=== PATIENT | female | born 1935 | race Caucasian/White ===

== ENCOUNTER → 2016-06-06 | Outpatient (CLI) | payer OTHER ==
[~2016-06-06] MED LIST: ASPEC325 PO; CALC600T37 PO; CHOL2000 PO; CLB200 PO; GABA1CAP4 PO; HYDR-5688 PO; KETO10TA PO; MELO15TA4 PO; MELO7.5T5 PO; MULT-190 PO; MULT60CA PO; OMEG10002 PO; OXYC-57 PO; PRLSR20 PO; SIMV20TA2 PO; ZNTT/150 PO
[2016-06-06 09:27] LABS: BASO % 0.6 %; BASO ABS # 0.04 K/uL (0-0.2); COMPLETE YES; HEMATOCRIT 41.7 % (37-47); IG% 0.3 %; LYMPH % 26.6 %; LYMPH ABS # 1.71 K/uL (1.2-3.4); MEAN CELL VOLUME 91.6 fL (80-100); MEAN CORPUSCULAR HEMOGLOBIN 30.3 pg (25-34); MEAN CORPUSCULAR HGB CONC 33.1 g/dl (32-36); MEAN PLATELET VOLUME 10.8 fL (7.4-10.4); MONO % 11.2 %; NEUT % 58.3 %; PLATELET COUNT 244 K/uL (130-400); RED BLOOD COUNT 4.55 M/uL (4.2-5.4); WHITE BLOOD COUNT 6.42 K/uL (4.8-10.8)
== END | disposition home or self-care (01) ==
LOC: C.LAB1850 08:47
PROVIDERS: ATTEND Internal Medicine Rheumatology
DX: M70.61 Trochanteric bursitis, right hip (principal); M25.551 Pain in right hip; Z79.1 Long term (current) use of non-steroidal anti-inflammatories (NSAID)

== ENCOUNTER → 2016-06-21 | Outpatient (CLI) | payer OTHER ==
[~2016-06-21] MED LIST changes: -CLB200 PO
--- NOTE | 2016-06-21 11:27 | DIAGNOSTIC IMAGING REPORT ---
ABDOMEN COMPLETE (US) CLINICAL HISTORY: R19.8 Irregular bowel [id number] COMPARISON STUDY: No previous studies for comparison. FINDINGS: The pancreas appears sonographically normal. The spleen appears sonographically normal. There is no aortic dilatation. There is slight increase in hepatic echogenicity. There is a 1 mm complex cyst within the liver. The gallbladder is surgically absent. The common bile duct measures 9 mm. The right kidney measures 10.1 cm in length. The left kidney measures 9.6 cm in length. No focal renal masses are visualized. There is no hydronephrosis. No active as the IVC are visualized. IMPRESSION: 1. Suspected hepatic steatosis. Probable 1 cm septated cyst within the right hepatic lobe 2. Surgically absent gallbladder 3. 9 mm common bile duct 4. No renal pancreatic or splenic masses identified Electronically signed by: Joshua Nagel M.D. 06/21/2016 11:26 AM Dictated Date/Time: 06/21/2016 11:23 AM
== END | disposition home or self-care (01) ==
LOC: C.ULTR 10:54
PROVIDERS: ATTEND Internal Medicine
DX: R19.8 Other specified symptoms and signs involving the digestive system and abdomen (principal); Z90.49 Acquired absence of other specified parts of digestive tract

== ENCOUNTER → 2016-08-16 | Outpatient (CLI) | payer OTHER ==
--- NOTE | 2016-08-16 13:26 | DIAGNOSTIC IMAGING REPORT ---
NUCLEAR GASTRIC EMPTYING STUDY: CLINICAL HISTORY: K30 Delayed gastric xehvcvhgO54.0 [id number] COMPARISON STUDY: 12/20/2010 TECHNIQUE: Following the oral administration of 1.1 mCi of technetium 99m sulfur colloid in egg sandwich and 8 ounces of water, static abdominal images are performed anteriorly and posteriorly at 0 minutes, 1 hour, 2 hours, and 4 hour time intervals. Gastric emptying was calculated utilizing the geometric mean method. FINDINGS: There is approximately 61 % gastric activity remaining at the 1 hour time interval, 54 % at the 2 hour time interval (normal is less than 60%), and 18 % remaining at the 4 hour time interval (normal is less than 10%). These findings are consistent with delayed gastric emptying at the 4 hour time point IMPRESSION: Findings are consistent with mild delayed gastric emptying with increased residual activity at the 4 hour time point. 1 hour and 2 hour measurements are within normal limits. Relatively similar findings were reported on the prior study. Electronically signed by: Joshua Nagel M.D. 08/16/2016 1:25 PM Dictated Date/Time: 08/16/2016 1:23 PM
== END | disposition home or self-care (01) ==
LOC: C.NUCL 08:32
PROVIDERS: ATTEND Registered Nurse
DX: K30 Functional dyspepsia (principal); R11.0 Nausea

== ENCOUNTER → 2016-08-21 | Outpatient (CLI) | payer OTHER ==
--- NOTE | 2016-08-21 14:25 | MAMMOGRAPHY REPORT ---
BILATERAL DIGITAL SCREENING MAMMOGRAM WITH CAD: 08/21/2016 CLINICAL HISTORY: Routine screening. Patient has no complaints. TECHNIQUE: Bilateral CC and MLO views were obtained. Current study was also evaluated with a Comput er Aided Detection (CAD) system. COMPARISON: Comparison is made to exams dated: 08/17/2015 mammogram, 07/15/2014 mammogram, 07/14/2013 ma mmogram, 07/12/2012 mammogram, 07/07/2011 mammogram, and 07/05/2010 mammogram - [facility] enter. BREAST COMPOSITION: The tissue of both breasts is almost entirely fatty. FINDINGS: There is stable nodularity bilaterally. Mild to moderate vascular calcifications in the b reasts. No new suspicious mass, architectural distortion or cluster of microcalcifications is seen. IMPRESSION: ACR BI-RADS CATEGORY 1: NEGATIVE There is no mammographic evidence of malignancy. A 1 year screening mammogram is recommended. The p atient will receive written notification of the results. Approximately 10% of breast cancers are not detected with mammography. A negative mammographic repor t should not delay biopsy if a clinically suggestive mass is present. Beata Post M.D. ay/:08/21/2016 13:22:59 Home Energy Consultant Supervisor: Jessica BAR(Clifford)(M), [facility] letter sent: Normal 1/2 BI-RADS Code: ACR BI-RADS Category 1: Negative
== END | disposition home or self-care (01) ==
LOC: C.MAMM 09:57
PROVIDERS: ATTEND Internal Medicine
DX: Z12.31 Encounter for screening mammogram for malignant neoplasm of breast (principal)

== ENCOUNTER → 2016-09-25 | Outpatient (CLI) | payer OTHER ==
[~2016-09-25] MED LIST changes: -MELO7.5T5 PO; -MULT-190 PO
== END | disposition home or self-care (01) ==
LOC: C.CPL 12:58
PROVIDERS: ATTEND Orthopaedic Surgery Sports Medicine
DX: Z01.810 Encounter for preprocedural cardiovascular examination (principal)

== ENCOUNTER → 2016-09-27 | Day surgery (SDC) | payer OTHER ==
[2016-09-20 14:47] VITALS: Ht 167.6 cm; Wt 104.1 kg
[~2016-09-27] VITALS: Ht 167.6 cm; Wt 104.1 kg
[~2016-09-27] MED LIST changes: +ATROPINE SULFATE 0.1 MG/ML 5ML SYR IV PRN; +BUPIVACAINE 0.5 % 5 MG/1 ML MPF 30ML VIAL ONE; +CEFAZOLIN 2000 MG/60 ML D5W IV SCH; +CEFAZOLIN SOD 1000MG/55 ML D5W IV ONE; +EpHEDrine SULFATE INJ 50 MG/ML AMP IV PRN; +FENTANYL CITRATE INJ 50 MCG/1 ML 2 ML VIAL IV PRN; +FENTANYL CITRATE INJ 50 MCG/1 ML 2 ML VIAL ONE; +LACTATED RINGER'S 1000ML 1,000 ML IV SCH; +LIDOCAINE HCL 1% 20 ML VIAL ONE; +LIDOCAINE HCL 2% 2 ML VIAL (20MG/ML) ONE; +MIDAZOLAM HCL 1 MG/ML 2ML VIAL ONE; +ONDANSETRON INJ 2 MG/ML 2 ML VIAL IV PRN; +OXYCODONE/ACETAMINOPHEN 5-325 TAB PO PRN; +PROPOFOL IV EMULSION 10 MG/ML 20 ML VIAL IV ONE; +SODIUM CHLORIDE 0.9% 1000ML 1,000 ML IV SCH
--- NOTE | 2016-09-27 07:51 | History & Physical Bridge - SC ---
H&P Re-Evaluation Bridge Note: I have examined the patient, reviewed the History & Physical and in the interval since the performance of the History & Physical I have noted the following changes of clinical significance: No changes noted
--- NOTE | 2016-09-27 09:40 | [facility] Post Operative Brief Note ---
Immediate Operative Summary Operative Date Sep 27, 2016. Pre-Operative Diagnosis Right Foot 3rd,4th and 5th Hammertoes Post-Operative Diagnosis same Procedure(s) Performed Right Third, Fourth, And Fifth Hammertoe Correction Surgeon Dr. Todd Farooq Catalyst Impregnator Surgeon(s) Dajuan Gagnon PA-C Estimated Blood Loss 10 ml Findings Right 3rd, 4th, and 5th Hammer toes Specimens 0 Anesthesia Local with IV Sedation Complication(s) None Disposition Recovery Room / PACU
[2016-09-27 09:43] VITALS: TEMP 37.1
--- NOTE | 2016-09-27 09:45 | Discharge Instructions-SurgCtr ---
Discharge Instructions Date of Service Sep 27, 2016. Visit Reason for Visit: Right 3RD, 4TH, 5TH Hammertoes Discharge Discharge Diagnosis / Problem: right 3rd, 4th, 5th hammertoes Discharge Goals Goal(s): Decrease discomfort, Therapeutic intervention Activity Recommendations Activity Limitations: per Instructions/Follow-up section Weightbearing Status: Right weightbearing (as tolerated with post op shoe ) Anesthesia . Post Anesthesia Instructions: If you have had General Anesthesia or IV Sedation: * Do not drive today. * Resume driving when surgeon permits. * Do not make important decisions or sign legal documents today. * Call surgeon for: 1. Temperature elevations greater than 101 degrees F. 2. Uncontrollable pain. 3. Excessive bleeding. 4. Persistent nausea and vomiting. 5. Medication intolerance (nausea, vomiting or rash). * For nausea and vomiting use only clear liquids such as: tea, soda, bouillon until nausea subsides, then gradually increase diet as tolerated. * If you have any concerns or questions, call your surgeon's office. If physician is unavailable and it is an emergency, call 911 or go to the nearest emergency room. . Instructions / Follow-Up Instructions / Follow-Up MEDICATIONS: * Resume previous medications unless instructed otherwise by your surgeon. * Always take pain medication on a full stomach or with food to avoid upset stomach. * Do not drink alcohol or drive while taking narcotics. * Tylenol may be taken if narcotic not needed. SPECIAL CARE INSTRUCTIONS: __ None _x_ Keep extremity elevated and iced x 48 hours; apply ice 20-30 minutes 8-10 times/day. May remove at night. __ Crutches __ May discard when able x__ Brace/Post-op shoe __ 24 hrs/day __ Remove at night _x_ Dressing _x_ Maintain until seen in office, may shower with plastic over site __ Remove dressings in 24-48 hours and then may shower __ Cover incisions with band-aids after showering __ Do not remove steri-strips Call physician if chills or temperature rises above 102 degrees or pain unrelieved by prescribed pain medications. Office [phone] follow up in 2 weeks Diet Recommendations Home Diet: resume previous diet Procedures Procedures Performed: Right Third, Fourth, And Fifth Hammertoe Correction Pending Studies Studies pending at discharge: no Medical Emergencies . Who to Call and When: Medical Emergencies: If at any time you feel your situation is an emergency, please call 911 immediately. . Non-Emergent Contact Non-Emergency issues call your: Surgeon . . "Provider Documentation" section prepared by Angel Gagnon. .
[2016-09-27 10:07] VITALS: BP 148/80; PULSE 68; O2SAT 96
--- NOTE | 2016-09-27 10:09 | Anesthesia Progress Nt - [facility] ---
Anesthesia Post Op Note Date & Time Sep 27, 2016 at 10:09 Vital Signs Pain Intensity: 0 Vital Signs Past 12 Hours Date Time Temp Pulse Resp B/P (MAP) Pulse Ox O2 Delivery O2 Flow Rate FiO2 09/27/16 10:07 68 16 148/80 (102) 96 Room Air 09/27/16 09:43 37.1 71 16 144/81 (102) 96 Room Air 09/27/16 07:03 36.9 80 18 144/82 (102) 94 Room Air Notes Mental Status: alert / awake / arousable, participated in evaluation Pt Amnestic to Procedure: Yes Nausea / Vomiting: adequately controlled Pain: adequately controlled Airway Patency, RR, SpO2: stable & adequate BP & HR: stable & adequate Hydration State: stable & adequate Anesthetic Complications: no major complications apparent
--- NOTE | 2016-09-27 13:45 | OPERATIVE REPORT ---
DATE OF OPERATION: 09/27/2016 SURGEON: Dr. Kedar Farooq. BONE GLUE MAKER: VANNA Sol PREOPERATIVE DIAGNOSIS: Right foot third/fourth/fifth rigid hammertoe deformities. POSTOPERATIVE DIAGNOSIS: Same. PROCEDURES PERFORMED: 1. Right third hammertoe correction. 2. Right fourth toe hammertoe correction. 3. Right fifth toe hammertoe correction. COMPLICATIONS: None. ESTIMATED BLOOD LOSS: 10 mL. TOURNIQUET TIME: 29 minutes at 300 mmHg. ANESTHESIA: Local with IV sedation. OPERATIVE INDICATIONS: The patient is an 81-year-old female with a history of right foot surgery in the past done elsewhere. For the past several years, she developed increased pain and discomfort and chronic deformities to her third, fourth and fifth toes. Her second was most symptomatic with significant plantar callus over the toe. She had failed conservative treatment. She had rigid hammertoes of all 3 toes and elected to proceed with surgical treatment. OPERATIVE PROCEDURE: The patient was taken to the operating room, identified and placed on the operating table in the supine position. All contact areas were appropriately padded. IV antibiotics provided by anesthesia team. Right ankle tourniquet was placed. Some IV sedation was provided. A 20 mL of 50:50 combination of 0.5% Marcaine and 2% lidocaine were then retracted proximal to the incision sites to provide a digital block to the third, fourth, and fifth toes. The right foot was then prepped and draped in the usual sterile fashion. The right foot was elevated and exsanguinated with Esmarch and tourniquet was placed at 300 mmHg. Attention was first drawn to the third toe. A fish mouth type incision was made over the PIP joint of the third toe. Sharp dissection was carried out through the subcutaneous tissue directly down to the extensor tendon directly down to the bone. The distal portion of the proximal phalanx was skeletonized. The collateral ligaments were released. I then took a bone rongeur to cut the distal portion of the proximal phalanx off. I then dissected off the volar plate and did transect the flexor tendons to avoid recurrence. Attention was then drawn towards the fourth toe. A fish mouth incision was made over the PIP joint of the fourth toe. Sharp dissection was carried out through the subcutaneous tissues directly down to the tendon down to the bone. The collateral ligaments were released from the joint. The volar plate was stripped from the joint. The bone was then resected with the use of a bone cutting rongeur. Attention was then drawn towards the fifth toe. A similar fish mouth incision was made over the PIP joint of the fifth toe. Sharp dissection was carried out through the subcutaneous tissue directly down to the extensor tendon down to bone. This tissue was discarded. I then released the joint capsule of the collateral ligaments and the volar plate from the plantar aspect of the joint. I then took a bone rongeur and resected the distal portion of the proximal phalanx. I also released the volar plate and transected the flexor tendons to avoid recurrence. Once this was complete, I irrigated all wounds extensively. I then drilled some holes on the proximal phalanx of the third and fourth toes to allow for pin placement. I then placed a single 0.062-inch K-wire through the PIP joint of the third toe to hold in appropriate position. I did not place this into the metatarsal head. I placed a similar 0.062-inch K-wire in the fourth toe to hold in appropriate position. The fifth toe was extremely small and I could felt I could hold this in the appropriate position with the soft tissue repair. I did verify the location of the pins under fluoroscopy. Once this was complete, I irrigated the wounds again. The tourniquet was then let down for a tourniquet time of [address] vertical mattress sutures over the dorsal aspect of all 3 toes to incorporate the extensor tendon repair. The sutures were placed in a vertical mattress fashion. I then repaired the remaining of the wound edges with 4-0 nylon suture in a simple fashion. Once this was complete, Jergens pin balls were placed at the end of the K-wires. Xeroform was wrapped around the K-wires as well as over the incision site. The wounds were cleaned. A sterile dressing composed of 4 x 4s, sterile cast padding and a Coban wrap followed by postop shoe were applied. The patient was then transferred to the recovery room in stable condition. The patient tolerated the procedure well with no complications. All needle and sponge counts were correct at the end of the operation. I attest to the content of the Intraoperative Record and any orders documented therein. Any exceptions are noted below. ELMO
== END | disposition home or self-care (01) ==
LOC: X.SURG 06:35
PROVIDERS: ATTEND Orthopaedic Surgery Sports Medicine
DX: M20.41 Other hammer toe(s) (acquired), right foot (principal); Z88.2 Allergy status to sulfonamides; Z96.653 Presence of artificial knee joint, bilateral; E66.9 Obesity, unspecified; Z68.37 Body mass index [BMI] 37.0-37.9, adult; Z98.890 Other specified postprocedural states; Z90.710 Acquired absence of both cervix and uterus

== ENCOUNTER → 2016-10-06 | Outpatient (CLI) | payer OTHER ==
[~2016-10-06] MED LIST changes: -ATROPINE SULFATE 0.1 MG/ML 5ML SYR IV PRN; -BUPIVACAINE 0.5 % 5 MG/1 ML MPF 30ML VIAL ONE; -CEFAZOLIN 2000 MG/60 ML D5W IV SCH; -CEFAZOLIN SOD 1000MG/55 ML D5W IV ONE; -EpHEDrine SULFATE INJ 50 MG/ML AMP IV PRN; -FENTANYL CITRATE INJ 50 MCG/1 ML 2 ML VIAL IV PRN; -FENTANYL CITRATE INJ 50 MCG/1 ML 2 ML VIAL ONE; -KETO10TA PO; -LACTATED RINGER'S 1000ML 1,000 ML IV SCH; -LIDOCAINE HCL 1% 20 ML VIAL ONE; -LIDOCAINE HCL 2% 2 ML VIAL (20MG/ML) ONE; -MELO15TA4 PO; -MIDAZOLAM HCL 1 MG/ML 2ML VIAL ONE; -ONDANSETRON INJ 2 MG/ML 2 ML VIAL IV PRN; -OXYCODONE/ACETAMINOPHEN 5-325 TAB PO PRN; -PROPOFOL IV EMULSION 10 MG/ML 20 ML VIAL IV ONE; -SODIUM CHLORIDE 0.9% 1000ML 1,000 ML IV SCH
[2016-10-06 09:26] LABS: BASO % 0.4 %; BASO ABS # 0.03 K/uL (0-0.2); COMPLETE YES; HEMATOCRIT 40.7 % (37-47); IG% 0.4 %; LYMPH % 26.6 %; LYMPH ABS # 2.04 K/uL (1.2-3.4); MEAN CELL VOLUME 91.5 fL (80-100); MEAN CORPUSCULAR HEMOGLOBIN 29.9 pg (25-34); MEAN CORPUSCULAR HGB CONC 32.7 g/dl (32-36); MEAN PLATELET VOLUME 10.5 fL (7.4-10.4); MONO % 10.2 %; NEUT % 60.4 %; PLATELET COUNT 271 K/uL (130-400); RED BLOOD COUNT 4.45 M/uL (4.2-5.4); WHITE BLOOD COUNT 7.66 K/uL (4.8-10.8)
[2016-10-06 09:41] LABS: ALT/SGPT 27 U/L (12-78); AST/SGOT 13 U/L (15-37); BLOOD UREA NITROGEN 21 mg/dl (7-18); BUN/CREATININE RATIO 23.4 (10-20); CALCIUM 8.8 mg/dl (8.5-10.1); CARBON DIOXIDE 26 mmol/L (21-32); CHLORIDE 109 mmol/L (98-107); CHOLESTEROL 127 mg/dl (0-200); GLUCOSE 124 mg/dl (70-99); POTASSIUM 4.2 mmol/L (3.5-5.1); SODIUM 144 mmol/L (136-145); TRIGLYCERIDES 144 mg/dl (0-150); VERY LOW DENSITY LIPOPROT CALC 29 mg/dl
[2016-10-06 09:52] LABS: ALKALINE PHOSPHATASE 76 U/L (45-117); CHOLESTEROL/HDL RATIO 3.3; HDL CHOLESTEROL 38 mg/dl; LDL CHOLESTEROL CALCULATED 60 mg/dl
== END | disposition home or self-care (01) ==
LOC: C.LAB1850 08:13
PROVIDERS: ATTEND Internal Medicine
DX: E04.2 Nontoxic multinodular goiter (principal); E78.00 Pure hypercholesterolemia, unspecified; E55.9 Vitamin D deficiency, unspecified; R73.03 Prediabetes; M19.90 Unspecified osteoarthritis, unspecified site; Z79.1 Long term (current) use of non-steroidal anti-inflammatories (NSAID)

== ENCOUNTER → 2016-12-19 | Outpatient (CLI) | payer OTHER ==
[~2016-12-19] MED LIST changes: +OPTIRAY 320 IV PRN; -OXYC-57 PO
--- NOTE | 2016-12-19 16:31 | DIAGNOSTIC IMAGING REPORT ---
ABD/PELVIS IV AND ORAL CONT CT DOSE: 1249.51 mGy.cm HISTORY: Pain. Mass. R19.00 Lump in the ueonlrqM55.31 Abdominal pain, acute, right lo TECHNIQUE: Multiaxial CT images of the abdomen and pelvis were performed following the use of intravenous and oral contrast. A dose lowering technique was utilized adhering to the principles of ALARA. COMPARISON STUDY: None. FINDINGS: Mild bibasilar atelectasis. Several small hepatic hypodensities statistically consistent with that of small cysts. Prior cholecystectomy. Pancreas is uniform. Moderate cortical scarring of the kidneys bilaterally. No evidence for hydronephrosis. Nonobstructive bowel pattern. Fat-containing periumbilical hernia no evidence of bowel containment. Bladder is midline. No significant abdominal pelvic or inguinal adenopathy. Findings of mild chronic sigmoid diverticulosis. No evidence for acute diverticulitis. IMPRESSION: 1. Fat-containing periumbilical hernia. 2. Several small hepatic cysts. 3. Chronic sigmoid and to lesser extent descending colonic diverticulosis. 4. No evidence for mass or collection The above report was generated using voice recognition software. It may contain grammatical, syntax or spelling errors. Electronically signed by: Aleksey Lopez M.D. 12/19/2016 4:29 PM Dictated Date/Time: 12/19/2016 4:25 PM
== END | disposition home or self-care (01) ==
LOC: C.CTS 15:45
PROVIDERS: ATTEND Physician Assistant
DX: R10.31 Right lower quadrant pain (principal); R19.00 Intra-abdominal and pelvic swelling, mass and lump, unspecified site; K76.89 Other specified diseases of liver

== ENCOUNTER → 2016-12-28 | Outpatient (CLI) | payer OTHER ==
[~2016-12-28] MED LIST changes: -OPTIRAY 320 IV PRN
--- NOTE | 2016-12-28 14:15 | DIAGNOSTIC IMAGING REPORT ---
RIGHT SHOULDER 3 VIEWS HISTORY: Fall. Right shoulder pain. COMPARISON: None. FINDINGS: No acute fracture or dislocation within the right shoulder. Distal resection of the right clavicle. Narrowing of the subacromial space consistent with chronic rotator cuff injury. Calcifications at the expected location of the supraspinatus tendon. 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 No radiopaque foreign bodies. IMPRESSION: 1. No acute fracture or dislocation within the right shoulder. 2. Chronic and postoperative changes as described above. Electronically signed by: Nato Deras M.D. 12/28/2016 2:13 PM Dictated Date/Time: 12/28/2016 2:11 PM
== END | disposition home or self-care (01) ==
LOC: C.RAD1850 13:54
PROVIDERS: ATTEND Physician Assistant
DX: M25.511 Pain in right shoulder (principal); S49.91XA Unspecified injury of right shoulder and upper arm, initial encounter; W19.XXXA Unspecified fall, initial encounter; M19.011 Primary osteoarthritis, right shoulder

== ENCOUNTER → 2017-02-06 | Outpatient (CLI) | payer OTHER ==
[~2017-02-06] MED LIST changes: -ASPEC325 PO; -GABA1CAP4 PO
[2017-02-06 12:24] LABS: HEMATOCRIT 42.7 % (37-47); MEAN CELL VOLUME 90.9 fL (80-100); MEAN CORPUSCULAR HEMOGLOBIN 29.6 pg (25-34); MEAN CORPUSCULAR HGB CONC 32.6 g/dl (32-36); MEAN PLATELET VOLUME 11.3 fL (7.4-10.4); PLATELET COUNT 242 K/uL (130-400); WHITE BLOOD COUNT 7.04 K/uL (4.8-10.8)
[2017-02-06 13:15] LABS: BLOOD UREA NITROGEN 19 mg/dl (7-18); BUN/CREATININE RATIO 23.2 (10-20); CALCIUM 9.2 mg/dl (8.5-10.1); CARBON DIOXIDE 26 mmol/L (21-32); CHLORIDE 109 mmol/L (98-107); CREATININE 0.83 mg/dl (0.60-1.20); GLUCOSE 122 mg/dl (70-99); POTASSIUM 3.8 mmol/L (3.5-5.1); SODIUM 142 mmol/L (136-145)
[2017-02-06 14:38] LABS: ESTIMATED AVERAGE GLUCOSE 134 mg/dl; HA1C FLAG Normal (Normal)
== END | disposition home or self-care (01) ==
LOC: C.LAB1850 08:32
PROVIDERS: ATTEND Internal Medicine
DX: R73.03 Prediabetes (principal); K30 Functional dyspepsia

== ENCOUNTER → 2017-07-24 | Outpatient (CLI) | payer OTHER ==
[~2017-07-24] MED LIST changes: +RANI150T85 PO; -ZNTT/150 PO
--- NOTE | 2017-07-24 16:48 | DIAGNOSTIC IMAGING REPORT ---
CHEST 2 VIEWS ROUTINE HISTORY: 81 years-old Female R06.02 SOB (shortness of breath) on [id number] acute shortness of breath with upper back pain COMPARISON: Chest radiographs 02/11/2015 TECHNIQUE: PA and lateral views of the chest FINDINGS: Cardiac silhouette is mildly enlarged. Atherosclerosis of the aorta. Azygos lobe and fissure incidentally noted. No pneumothorax or large pleural effusion. Linear subsegmental bibasilar opacities with blunting of the left costophrenic angle suggests atelectasis or scarring. No lobar airspace consolidation or overt pulmonary edema. The lungs are mildly hyperinflated with diaphragmatic flattening. Degenerative changes are noted throughout the spine and shoulders. Surgical clips seen within the right upper quadrant suggesting prior cholecystectomy. IMPRESSION: 1. No acute process of the chest. 2. subsegmental bibasilar opacities suggest atelectasis/scarring. The above report was generated using voice recognition software. It may contain grammatical, syntax or spelling errors. Electronically signed by: Larry Guzman M.D. 07/24/2017 4:47 PM Dictated Date/Time: 07/24/2017 4:45 PM
--- NOTE | 2017-07-24 16:49 | DIAGNOSTIC IMAGING REPORT ---
BILATERAL RIB SERIES CLINICAL HISTORY: Dyspnea. Back pain. FINDINGS: 8 views from a bilateral rib series are correlated with chest radiographs dated 07/24/2017 and correlated with chest CT dated 02/02/2014. The skeletal structures are osteopenic. There is no radiographic evidence of acute/distracted rib fracture on the bilateral rib series. The remainder the bony thorax is grossly intact. The lung parenchyma is clear as visualized. The heart is enlarged. Cholecystectomy clips are noted in the right upper quadrant. IMPRESSION: There is no radiographic evidence of acute/distracted rib fracture on the bilateral rib series. Electronically signed by: Micah Watkins M.D. 07/24/2017 4:48 PM Dictated Date/Time: 07/24/2017 4:46 PM
--- NOTE | 2017-07-24 16:53 | DIAGNOSTIC IMAGING REPORT ---
THORACIC SPINE 3 VIEWS ROUTINE HISTORY: 81 years-old Female R06.02 SOB (shortness of breath) on [id number] acute shortness of breath with upper back pain COMPARISON: Chest radiograph of same day TECHNIQUE: 3 views of the thoracic spine FINDINGS: The bones appear osteopenic. Multilevel mostly moderate intervertebral disc space narrowing and endplate spurring without acute fracture or subluxation identified. There is mild anterior and posterior vertebral body height loss involving the T4 vertebral segment which appears chronic. No definite acute compression deformity is identified. Alignment is satisfactory. The heart appears enlarged. Atherosclerosis of the aorta. Surgical clips of the right upper abdomen suggest prior cholecystectomy. IMPRESSION: Multilevel degenerative changes without acute fracture or subluxation identified. The above report was generated using voice recognition software. It may contain grammatical, syntax or spelling errors. Electronically signed by: Larry Guzman M.D. 07/24/2017 4:52 PM Dictated Date/Time: 07/24/2017 4:48 PM
== END | disposition home or self-care (01) ==
LOC: C.RAD1850 16:02
PROVIDERS: ATTEND Physician Assistant
DX: R06.02 Shortness of breath (principal); R91.8 Other nonspecific abnormal finding of lung field

== ENCOUNTER → 2017-08-02 | Outpatient (CLI) | payer OTHER ==
[~2017-08-02] MED LIST changes: +OPTIRAY 320 IV PRN
--- NOTE | 2017-08-02 12:00 | DIAGNOSTIC IMAGING REPORT ---
CT OF THE CHEST WITH IV CONTRAST CLINICAL HISTORY: M54.6 Thoracic back [id number] PAIN BETWEEN THE SHOULDER BLADES COMPARISON STUDY: No previous studies for comparison. TECHNIQUE: Following the IV administration of 93 mL of Optiray-320, CT of the thorax was performed from the thoracic inlet to the lung bases. Images are reviewed in the axial, sagittal, and coronal planes. IV contrast was administered without complication. A dose lowering technique was utilized adhering to the principles of ALARA. CT DOSE: 554.59 mGycm FINDINGS: Thyroid: There is a multinodular thyroid gland with nodules measuring up to 12 mm in diameter. Thoracic aorta: The thoracic aorta is normal in course and caliber, noting standard 3-vessel arch anatomy. No aneurysm or dissection is seen. Pulmonary vasculature: The pulmonary trunk is normal in caliber. There are no central filling defects identified to suggest pulmonary embolus. Note that this examination was not protocoled for the evaluation of pulmonary emboli. HEART: The heart is normal in size and configuration, without pericardial effusion. Lungs and pleural spaces: There are no pleural effusions. There is no focal pulmonary consolidation. There are no suspicious pulmonary masses. There are lingular atelectatic changes. Mediastinum: There is no mediastinal lymphadenopathy. Mary Lou: Clear. Axilla: Clear. Upper abdomen: Is a stable 13 mm fat-containing lesion within the right lobe of the liver, and all likelihood benign. The kidneys are lobulated. There are postsurgical changes are prior cholecystectomy. Skeletal structures: The bones are mildly osteopenic. There is a mild upper thoracic compression deformity which appears old. There is a subcutaneous nodule within the mid upper back, likely representing a sebaceous cyst. This is slightly larger than on the prior study. IMPRESSION: 1. No acute intrathoracic findings 2. No evidence of pathologic adenopathy 3. No evidence of focal pulmonary consolidation Electronically signed by: Joshua Nagel M.D. 08/02/2017 11:58 AM Dictated Date/Time: 08/02/2017 11:50 AM
== END | disposition home or self-care (01) ==
LOC: C.CTS 11:13
PROVIDERS: ATTEND Physician Assistant
DX: M54.6 Pain in thoracic spine (principal)

== ENCOUNTER → 2017-08-03 | Outpatient (CLI) | payer OTHER ==
[~2017-08-03] MED LIST changes: -OPTIRAY 320 IV PRN
[2017-08-03 10:08] LABS: HEMATOCRIT 42.4 % (37-47); HEMOGLOBIN 13.8 g/dL (12.0-16.0); MEAN CELL VOLUME 90.6 fL (80-100); MEAN CORPUSCULAR HEMOGLOBIN 29.5 pg (25-34); MEAN CORPUSCULAR HGB CONC 32.5 g/dl (32-36); MEAN PLATELET VOLUME 10.2 fL (7.4-10.4); PLATELET COUNT 288 K/uL (130-400); RED CELL DISTRIBUTION WIDTH CV 13.5 % (11.5-14.5); RED CELL DISTRIBUTION WIDTH SD 44.5 fL (36.4-46.3); WHITE BLOOD COUNT 8.21 K/uL (4.8-10.8)
== END | disposition home or self-care (01) ==
LOC: C.LAB1850 09:14
PROVIDERS: ATTEND Internal Medicine
DX: E78.00 Pure hypercholesterolemia, unspecified (principal); R73.03 Prediabetes; K22.70 Barrett's esophagus without dysplasia; E55.9 Vitamin D deficiency, unspecified

== ENCOUNTER → 2017-09-03 | Outpatient (CLI) | payer OTHER ==
--- NOTE | 2017-09-03 15:08 | MAMMOGRAPHY REPORT ---
BILATERAL DIGITAL SCREENING MAMMOGRAM TOMOSYNTHESIS WITH CAD: 09/03/2017 CLINICAL HISTORY: Routine screening. Patient has no complaints. TECHNIQUE: Breast tomosynthesis in addition to standard 2D mammography was performed. Current study was also evaluated with a Computer Aided Detection (CAD) system. COMPARISON: Comparison is made to exams dated: 08/21/2016 mammogram, 08/17/2015 mammogram, 07/15/2014 mamm ogram, 07/14/2013 mammogram, 07/12/2012 mammogram, and 07/07/2011 mammogram - [facility] er. BREAST COMPOSITION: The tissue of both breasts is almost entirely fatty. FINDINGS: There are mild vascular calcifications bilaterally. Multiple bilateral round and oval circ umscribed subcentimeter masses bilaterally, most likely representing benign cysts/fibrocystic change. No suspicious spiculated or irregular mass, architectural distortion or cluster of microcalcificati ons is seen. IMPRESSION: ACR BI-RADS CATEGORY 1: NEGATIVE There is no mammographic evidence of malignancy. A 1 year screening mammogram is recommended. The pa tient will receive written notification of the results. Approximately 10% of breast cancers are not detected with mammography. A negative mammographic report should not delay biopsy if a clinically suggestive mass is present. Beata Post M.D. ay/:09/03/2017 09:02:43 Director Of Analytics: Jessica SETH)([place]), [facility] letter sent: Normal 1/2 BI-RADS Code: ACR BI-RADS Category 1: Negative
== END | disposition home or self-care (01) ==
LOC: C.MAMM 08:14
PROVIDERS: ATTEND Internal Medicine
DX: Z12.31 Encounter for screening mammogram for malignant neoplasm of breast (principal)

== ENCOUNTER 2018-05-07 06:15 | Inpatient (IN) ==
--- NOTE | 2018-04-23 13:56 | PAT Medication Instructions ---
Medication Instructions Date of Service April 23, 2018 Home Medications calcium carbonate [Calcium 600]600 mg PO QPM cholecalciferol (vitamin D3)4,000 unit PO QPM mg PO QAM omega 9-zbe-yjt-fish oil [Fish Oil]1 cap PO QPM tewxmgdudb41 mg PO QAM ranitidine KIk664 mg PO QPM ndbbgmvtee83 mg PO QAM yyohywrmtqx05 mg PO PM vit C,T-Cq-wsxsx-lutein-zeaxan [PreserVision AREDS-2] 1 tab PO BID ASK your surgeon for instructions mielriyor29 mg PO QAM STOP taking 2 weeks before surgery (or as soon as possible if surgery is within 2 weeks) omega 3-iat-sch-fish oil [Fish Oil]1 cap PO QPM vit C,O-Wq-hfgum-lutein-zeaxan [PreserVision AREDS-2] 1 tab PO BID Take morning of surgery With a small sip of water, OTHERWISE NOTHING TO EAT OR DRINK AFTER MIDNIGHT: hefckjdiye17 mg PO QAM meqimlbzsa52 mg PO QAM Take evening before surgery calcium carbonate [Calcium 600]600 mg PO QPM cholecalciferol (vitamin D3)4,000 unit PO QPM ranitidine BOo894 mg PO QPM ebjqlhorqca37 mg PO PM Other Notes If you have any questions please call us at [phone] or [phone] or [phone] or [phone]
--- NOTE | 2018-04-24 10:56 | Anesthesiology Consultation ---
Date of Service April 24, 2018 Assessment & Plan (1) Encounter for pre-operative examination: Plan: - Cardio= 05/01/18= "stable and asymptomatic from a CV standpoint with no anginal symptoms occurring at a fair functional status." EKG with possible inferior/anterior GA-- ECHO ordered to evaluation LV systolic function and wall motion. "Pending the results of the [ECHO], patient is at an acceptable risk to proceed with surgery without any additional CV testing or intervention." ECHO done 05/01/18 with EF 55-60%, no RWMA, no significant valvular disease. - Check BSG AM DOS Chart Review Chart Review: Acceptable Risk for Surgery and Patient seen in Pre Admission Testing Teaching & Discussion Pre-Anesthesia Teaching/Discussion Notes: Instructed NPO after midnight before surgery,except medications with 15 cc of water. Medication instructions provided according to the PAT guidelines. History Surgery Operation Date: 05/07/18 12:45 Proposed Procedures p Left Reverse Total Shoulder Replacement - Balwinder Nava DO Height/Weight Height: 5 ft 5 in Weight: 101.7 kg Allergies Allergy/AdvReac Type Severity Reaction Status Date / Time Sulfa (Sulfonamide Allergy Severe FACIAL Verified 04/19/18 11:48 Antibiotics) SWELLING A TEEN Medications Home Medications Medication Instructions Recorded Confirmed Last Taken calcium carbonate [Calcium 600] 600 mg PO QPM 04/19/18 04/19/18 Unknown cholecalciferol (vitamin D3) 4,000 unit PO QPM 04/19/18 04/19/18 Unknown [Vitamin D3] meloxicam 15 mg PO QAM 04/19/18 04/19/18 Unknown omega 2-bzc-tbn-fish oil [Fish Oil] 1 cap PO QPM 04/19/18 04/19/18 Unknown omeprazole 20 mg PO QAM 04/19/18 04/19/18 Unknown ranitidine HCl 150 mg PO QPM 04/19/18 04/19/18 Unknown sertraline 50 mg PO QAM 04/19/18 04/19/18 Unknown simvastatin 20 mg PO PM 04/19/18 04/19/18 Unknown vit C,W-Xe-mxugx-lutein-zeaxan 1 tab PO BID 04/19/18 04/19/18 Unknown [PreserVision AREDS-2] Past Medical History Medical History Anxiety GERD (gastroesophageal reflux disease) CONTROLLED Hyperlipidemia Macular degeneration Obesity Osteoarthritis Prediabetes Umbilical hernia Past Surgical History Surgical History History of ankle surgery B/L History of back surgery History of carpal tunnel release RIGHT History of cholecystectomy History of colonoscopy History of esophagogastroduodenoscopy (EGD) History of foot surgery History of repair of rotator cuff B/L History of toe surgery RIGHT TOE AMPUTATION (2/2 OSTEOMYELITIS)= 12/12/17= MAC SEDATION AT [facility] History of tooth extraction History of total abdominal hysterectomy and bilateral salpingo-oophorectomy History of total knee replacement B/L Past Anesthesia History No Hx of Anesthesia Complications and No Family Hx of Anesthesia Complications History of PONV No Motion Sickness Screening History of Motion Sickness: No Social History Smoking Status: Never smoker Do You Dip or Chew Tobacco: No Hx Alcohol Use: No Hx Substance Use: No substance use type: does not use Exercise / Class Metabolic Activity III < 4 Walking/Shop/Light housework Review of Systems Patient denies chest pain, shortness of breath, cough, wheezing, palpitations. Physical Exam Vital Signs VITALS BP 130/74 P 69 TEMP 98.6 SP02 95%RA RESP 18 Full neck and c-spine range of motion. Full TMJ range of motion. TMD 2.5 finger breaths Mallampati Score 3 Dentition: few remaining teeth on lower, full dentures on upper Lungs: clear throughout to auscultation Cardiac: regular rate and rhythm, no murmurs noted Spine: normal Carotid arteries: negative bruit Extremities: no edema Testing Electrocardiogram Date: 05/01/18 SR at 73bpm. Possible Anterior/Inferior myocardial infarction. Echocardiogram Date: 05/01/18 EF 55-60%. No RWMA. Mild cLVH. Grade I DD. No significant valvular disease. Other Testing CT CHEST= 08/02/17= No acute intrathoarcic findings. No evidence of pathologic adenopathy. No evidence of focal pulmonary consolidation. Laboratory Results 04/24/18 11:11 04/24/18 11:11 Blood Type O Positive 04/24/18 11:11 Antibody Screen NEGATIVE 04/24/18 11:11 PT 10.2 Seconds (9.0-12.0) 04/24/18 11:11 INR 1.0 (0.9-1.1) 04/24/18 11:11 APTT 27.0 Seconds (21.0-31.0) 04/24/18 11:11
[2018-04-24 12:26] LABS: Basophils # (auto) 0.04 K/uL (0-0.2); Basophils % (auto) 0.5 %; Eosinophils # (auto) 0.12 K/uL (0-0.5); Eosinophils % (auto) 1.5 %; Hematocrit (blood only) 42.1 % (37-47); Hemoglobin 13.5 g/dL (12.0-16.0); Immature Granulocytes # (auto) 0.02 K/uL (0.00-0.02); Immature Granulocytes % (auto) 0.2 %; Lymphocytes # (auto) 1.92 K/uL (1.2-3.4); Mean Corpuscular Hgb Conc 32.1 g/dL (32-36); Mean Corpuscular Volume 92.9 fL (80-100); Mean Platelet Volume 10.8 fL (7.4-10.4); Neutrophils # (auto) 5.11 K/uL (1.4-6.5); Neutrophils % (auto) 63.8 %; Platelet Count 295 K/uL (130-400); RDW Coefficient of Variation 13.3 % (11.5-14.5); RDW Standard Deviation 45.3 fL (36.4-46.3); Red Blood Count 4.53 M/uL (4.2-5.4); White Blood Count 8.01 K/uL (4.8-10.8)
[2018-04-24 12:42] LABS: BUN Creatinine Ratio 28.1 (10-20); Creatinine Clr Calc Pharmacy 63.3 ml/min; Est GFR (African American) 78.4; Est GFR (Non-African American) 67.6; Potassium 4.4 mmol/L (3.5-5.1)
[2018-04-24 12:43] LABS: Prothrombin Time 10.2 Seconds (9.0-12.0)
[~2018-05-07 06:15] MED LIST changes: +ACETAMINOPHEN 500 MG TAB PO SCH; -CALC600T37 PO; +CEFAZOLIN 2000MG 2,000 MG/15 ML SYR IV SCH; -CHOL2000 PO; +FAMOTIDINE 20 MG TAB PO SCH; +GABAPENTIN 300 MG PO SCH; -HYDR-5688 PO; +LR 15ML/HR IV SCH; +LR 60ML/HR IV SCH; -MULT60CA PO; -OMEG10002 PO; -PRLSR20 PO; -RANI150T85 PO; +ROPIVACAINE 0.5% HCL/PF 150 MG, BUPIVACAINE 0.5% MPF 30 ML, EPINEPHrine 30MG/30ML (OR U... INFIL SCH; -SIMV20TA2 PO; +TRANEXAMIC ACID 1,000 MG **IV Pre-op IV SCH
[2018-05-07] MEDS ORDERED: TRANEXAMIC ACID 1,000 MG **IV Intra-op IV SCH (06:30)
--- NOTE | 2018-05-07 06:32 | History & Physical Report ---
Date of Service May 07, 2018 Assessment & Plan (1) Rotator cuff arthropathy of left shoulder: We will proceed with a reverse left shoulder arthroplasty. Postoperatively she will be placed in a sling and kept overnight for postop medical management. She plans to use [employer] upon discharge. Present on Admission?: Yes History of Present Illness Chief Complaint: Rotator cuff arthropathy of the left shoulder Primary Care Provider: Bebo Correa MD Jasmin is a pleasant 82-year-old female who had a rotator cuff repair done by Dr. Farooq about 6 years ago. She initially did well and then 2 years ago she started to get significant left shoulder pain and weakness. X-rays and clinical examination have been diagnostic for rotator cuff arthropathy of the left shoulder. After failing conservative treatment, she elected to proceed with a reverse left shoulder arthroplasty. Allergies Allergy/AdvReac Type Severity Reaction Status Date / Time Sulfa (Sulfonamide Allergy Severe FACIAL Verified 04/19/18 11:48 Antibiotics) SWELLING A TEEN Home Medications Home Medications Medication Instructions Recorded Confirmed Type calcium carbonate [Calcium 600] 600 mg PO QPM 04/19/18 04/19/18 History cholecalciferol (vitamin D3) 4,000 unit PO QPM 04/19/18 04/19/18 History [Vitamin D3] meloxicam 15 mg PO QAM 04/19/18 04/19/18 History omega 3-ftn-ufn-fish oil [Fish Oil] 1 cap PO QPM 04/19/18 04/19/18 History omeprazole 20 mg PO QAM 04/19/18 04/19/18 History ranitidine HCl 150 mg PO QPM 04/19/18 04/19/18 History sertraline 50 mg PO QAM 04/19/18 04/19/18 History simvastatin 20 mg PO PM 04/19/18 04/19/18 History vit C,Z-Cq-aqxfb-lutein-zeaxan 1 tab PO BID 04/19/18 04/19/18 History [PreserVision AREDS-2] Past Med/Surg History Medical History Anxiety GERD (gastroesophageal reflux disease) CONTROLLED Hyperlipidemia Macular degeneration Obesity Osteoarthritis Prediabetes Umbilical hernia Surgical History History of ankle surgery B/L History of back surgery History of carpal tunnel release RIGHT History of cholecystectomy History of colonoscopy History of esophagogastroduodenoscopy (EGD) History of foot surgery History of repair of rotator cuff B/L History of toe surgery RIGHT TOE AMPUTATION (2/2 OSTEOMYELITIS)= 12/12/17= MAC SEDATION AT [facility] History of tooth extraction History of total abdominal hysterectomy and bilateral salpingo-oophorectomy History of total knee replacement B/L Social History Current Living Situation: Spouse Other Information That Helps Us Care for You: No Feels Safe at Home: Yes Safety Concerns: Feels Safe At This Time Smoking Status: Never smoker Do You Dip or Chew Tobacco: No Hx Alcohol Use: No Hx Substance Use: No Beliefs That Will Affect Care: None Preferred Language: Nepali Communication Ability: Effective Polymer Tester Required: No Review of Systems All systems reviewed & are unremarkable except as noted in HPI & below Physical Exam 2 Constitutional: WD/WN, vitals as above Eyes: PERRL, conjunctivae normal, anicteric sclerae ENMT: external ear and nose normal, oropharynx normal Neck: trachea midline, no thyromegaly Respiratory: normal respiratory effort Cardiovascular: RRR, no murmur, no edema Gastrointestinal (Abdomen): normal bowel sounds, soft, nontender, no hepatosplenomegaly Musculoskeletal: Physical examination of the left shoulder reveals decreased range of motion and significant weakness. There is tenderness palpation along the anterior glenohumeral joint line. The right upper extremity is neurovascularly intact. Psychiatric: A+Ox3, euthymic affect Results & Data Diagnostic Findings Radiographs of the left shoulder show some signs of osteoarthritis with blunting of the greater tuberosity and some superior migration of the humeral head on the glenoid.
[2018-05-07] MEDS ORDERED: ROPIVACAINE 0.5% 5 MG/ML 30 ML VIAL ONE (06:37)
[2018-05-07] MEDS ORDERED: MIDAZOLAM HCL 1 MG/ML 2ML VIAL ONE ×2 (07:15→07:40)
[2018-05-07] MEDS ORDERED: fentaNYL citrate 100 MCG/2 ML VIAL ONE (07:15)
[2018-05-07] MEDS ORDERED: ATROPINE SULFATE 0.1 MG/ML 10ML SYR IV PRN (07:22)
[2018-05-07] MEDS ORDERED: ONDANSETRON INJ 2 MG/ML 2 ML VIAL IV PRN ×2 (07:22→10:56)
[2018-05-07] MEDS ORDERED: ePHEDrine sulfate 50 MG/ML AMP IV PRN (07:22)
[2018-05-07] MEDS ORDERED: fentaNYL citrate 100 MCG/2 ML VIAL IV PRN (07:22)
[2018-05-07] MEDS ORDERED: DEXAMETHASONE SOD INJ 4 MG/ML VIAL ONE (07:39)
[2018-05-07] MEDS ORDERED: NEOSTIGMINE METHYLSULFATE 5 MG/5 ML SYR ONE (07:39)
[2018-05-07] MEDS ORDERED: PROPOFOL IV EMULSION 10 MG/ML 20 ML VIAL IV ONE (07:39)
[2018-05-07] MEDS ORDERED: ONDANSETRON INJ 2 MG/ML 2 ML VIAL ONE (07:39)
[2018-05-07] MEDS ORDERED: GLYCOPYRROLATE 0.2 MG/ML VIAL ONE (07:39)
[2018-05-07] MEDS ORDERED: LIDOCAINE HCL 2% 2 ML VIAL/AMP(20MG/ML) INFIL ONE (07:39)
[2018-05-07] MEDS ORDERED: ORTHO JOINT ANESTHETIC ONE (07:59)
[2018-05-07] MEDS ORDERED: POVIDONE-IODINE OP SOLN 30 ML BTL ONE (07:59)
--- NOTE | 2018-05-07 08:13 | History & Physical Bridge Note ---
Date of Service May 07, 2018 History & Physical Bridge Note I have examined the patient, reviewed the History & Physical and in the interval since the performance of the History & Physical I have noted the following changes of clinical significance: no changes noted
--- NOTE | 2018-05-07 10:04 | Operative Report ---
Post Operative Report Pre & Post Diagnosis Operation Date: 05/07/18 09:00 Pre-Op Diagnosis: Chronic Rotator Cuff Tear Left Shoulder Post-Op Diagnosis: Chronic Rotator Cuff Tear Left Shoulder Procedure Operation Date: 05/07/18 09:00 Actual Procedures p Left Reverse Total Shoulder Replacement--Uncemented(Left) - Balwinder Nava DO Surgeon Balwinder Nava DO Financial Services Sales Representative None Estimated Blood Loss 250 Findings Consistent with Post-Op Diagnosis Specimens Left humeral head Complications none Disposition Disposition: Recovery Room Indications Jasmin is a pleasant 82-year-old female who underwent an open rotator cuff repair about [address] Farooq. She initially did well. Unfortunately last 2 years her shoulders become much more painful. X-rays and clinical examination have been diagnostic for rotator cuff arthropathy of the left shoulder. After failing conservative treatment, she elected to proceed with a left reverse shoulder arthroplasty. Description of Procedure Implants used: I used a [employer] Comprehensive reverse total shoulder arthroplasty system with a size 10 press fit mini humeral stem, a standard humeral tray and a +3 humeral bearing, a 25 mm mini baseplate with a 6.5 mm central screw and superior and inferior locking screws, and a size 36 mm eccentric glenosphere. The patient arrived at [facility] for the above procedure. There were seen in the preoperative holding area and the operative extremity was identified and signed. They were given a preoperative antibiotic and an interscalene nerve block. They were taken back to the operating room, laid on table in supine position, and put under general anesthesia. They were then put into the beachchair position. The shoulder was then prepped and draped in sterile fashion. A timeout was done and the patient in the operative extremity was properly identified. A deltopectoral approach was used. Dissection was taken down through the fascia and the deltoid was retracted laterally and the conjoined tendon was retracted medially. The anterior shoulder was exposed. The long head of the biceps tendon was tenodesed to the upper border of the pectoralis major. The subscapularis was then released off the lesser tuberosity with a centimeter of cuff tissue remaining. The inferior capsule was released and the humeral head was dislocated. A canal finding reamer was sent down the center of the humeral canal. Sequential reaming up to a size 10 reamer was done. Off that reamer, a proximal humeral resection guide was placed. The proximal humerus was resected at 135 of inclination and 25 of retroversion. Osteophytes were then removed and the glenoid was exposed. Time was spent doing a complete capsular and labral release. The glenoid guide was then placed in the inferior aspect of the glenoid. A 3.2 mm Steinmann pin was then placed into the glenoid vault at 10 of inclination. The glenoid baseplate was then reamed. The final size 25 mm mini baseplate was then impacted in the place. A 6.5 mm central screw was then placed followed by superior and inferior locking screws. A 36 mm eccentric glenoid sphere was then impacted into place. Surrounding soft tissues were then injected with 100 cc an orthopedic pain control cocktail. The proximal humerus was then exposed. Sequential broaching of the humerus up to a size 10 broach was done. Off that broach a +3 humeral tray was trialed. The shoulder was then reduced, brought through a full range of motion and felt to be stable. The shoulder was then dislocated and the broach was removed. The final size 10 mini press-fit humeral stem was then impacted into place. A +3 humeral bearing was then snapped onto a standard humeral tray and the ring-lock mechanism was engaged. The humeral tray was then impacted onto the humeral stem. The shoulder was once again reduced, brought through a full range of motion and felt to be stable. The subscapularis was then tenodesed back to the lesser tuberosity with transosseous FiberWire sutures and side to side sutures with the arm in 45 of external rotation. A dilute betadyne lavage was then done for 3 minutes. The joint was then irrigated with normal saline solution. Hemostasis was obtained. The skin was then closed with 2-0 Vicryl, 3-0V lock suture, and london. A soft dressing and a regular arm sling was placed. The patient was then extubated and transferred to a hospital bed. They were taken to the postanesthesia care unit in stable condition. They tolerated the procedure well. I attest to the content of the Intraoperative Record and any orders documented therein. Any exceptions are noted below.
--- NOTE | 2018-05-07 10:38 | Anesthesiology Progress Note ---
Date of Service May 07, 2018 Anesthesia Post Procedure Vital Signs Vital Signs: Temp Pulse Pulse Resp BP Pulse Ox 05/07/18 10:35 73 16 135/77 96 05/07/18 10:25 81 16 124/80 96 05/07/18 10:15 75 16 151/67 H 97 05/07/18 10:08 98.1 F 89 16 150/71 H 97 05/07/18 08:11 82 14 214/110 H 96 05/07/18 08:06 83 14 221/98 H 96 05/07/18 08:02 83 14 233/135 H 96 05/07/18 07:11 98.8 F 95 H 20 171/89 H 95 Notes Mental Status: alert / awake / arousable and participated in evaluation Patient Amnestic to Procedure: Yes Nausea / Vomiting: adequately controlled Pain: adequately controlled Airway Patency, RR, SpO2: stable & adequate BP & HR: stable & adequate Hydration State: stable & adequate Anesthetic Complications: no major complications apparent and Pt Satisfied with anesthetic care
--- NOTE | 2018-05-07 10:50 | XRay Report ---
XR shoulder LT min 2V routine CLINICAL HISTORY: 82 years-old Female presenting with Post shoulder surgery. TECHNIQUE: Frontal and transcatheter Y views of the left shoulder were obtained. COMPARISON: 02/25/2018. FINDINGS: There has been interval postsurgical changes of reverse total left shoulder arthroplasty. Expected so ft tissue emphysema and overlying skin london. No periprosthetic fracture. No malalignment. Suspecte d underlying osteopenia. Low lung volume on the left with suspected left basilar opacity. IMPRESSION: 1. Expected postsurgical finding status post reverse total left shoulder arthroplasty. 2. Left basilar atelectasis suspected. Electronically signed by: Cuong Fuentes M.D. 05/07/2018 10:49 AM
[2018-05-07] MEDS ORDERED: METOCLOPRAMIDE HCL INJ 5 MG/ML 2 ML VIAL IV PRN (10:56)
[2018-05-07] MEDS ORDERED: BISACODYL 10 MG SUPP PR PRN (10:56)
[2018-05-07] MEDS ORDERED: HYDROmorphone INJ 0.5 MG/0.5 ML SYR IV PRN (10:56)
[2018-05-07] MEDS ORDERED: NALOXONE HCL 0.4 MG/1 ML VIAL/CARP IV PRN (10:56)
[2018-05-07] MEDS ORDERED: TRAMADOL HCL 50 MG TABLET PO PRN (10:56)
[2018-05-07] MEDS ORDERED: MAGNESIUM HYDROXIDE SUSP 30 ML UDC PO PRN (10:56)
[2018-05-07] MEDS: KETOROLAC TROMETHAMINE 15 MG/ML VIAL IV SCH ×3 (11:57→23:32)
[2018-05-07] MEDS: SODIUM CHLORIDE 0.9% 1000ML 1,000 ML IV SCH ×2 (11:59→21:11)
[2018-05-07] MEDS: ACETAMINOPHEN 500 MG TAB PO SCH ×2 (13:42→21:13)
[2018-05-07] MEDS: CEFAZOLIN 2000MG 2,000 MG/15 ML SYR IV SCH ×2 (16:45→23:32)
[2018-05-07] MEDS ORDERED: SIMVASTATIN 20 MG TAB PO SCH (21:00)
[2018-05-07] MEDS ORDERED: SENNA 8.6 MG TAB PO SCH (21:00)
[2018-05-07] MEDS: DOCUSATE SODIUM 100 MG CAP PO SCH (21:13)
[2018-05-07] MEDS ORDERED: COUGH DROP (SUGAR FREE) LOZ 24 LOZ/1 BOX BUCCAL STA (23:29)
[2018-05-08] MEDS: KETOROLAC TROMETHAMINE 15 MG/ML VIAL IV SCH (05:29)
[2018-05-08] MEDS: ACETAMINOPHEN 500 MG TAB PO SCH (05:29)
[2018-05-08 06:33] LABS: Basophils # (auto) 0.02 K/uL (0-0.2); Basophils % (auto) 0.1 %; Eosinophils # (auto) 0.01 K/uL (0-0.5); Eosinophils % (auto) 0.1 %; Hematocrit (blood only) 35.1 % (37-47); Hemoglobin 11.3 g/dL (12.0-16.0); Immature Granulocytes # (auto) 0.05 K/uL (0.00-0.02); Immature Granulocytes % (auto) 0.3 %; Lymphocytes # (auto) 1.46 K/uL (1.2-3.4); Lymphocytes % (auto) 9.8 %; Mean Corpuscular Hgb Conc 32.2 g/dL (32-36); Mean Corpuscular Volume 92.6 fL (80-100); Mean Platelet Volume 10.4 fL (7.4-10.4); Monocytes # (auto) 1.38 K/uL (0.11-0.59); Monocytes % (auto) 9.3 %; Neutrophils # (auto) 11.95 K/uL (1.4-6.5); Neutrophils % (auto) 80.4 %; Platelet Count 261 K/uL (130-400); RDW Coefficient of Variation 13.3 % (11.5-14.5); RDW Standard Deviation 44.9 fL (36.4-46.3); Red Blood Count 3.79 M/uL (4.2-5.4); White Blood Count 14.87 K/uL (4.8-10.8)
--- NOTE | 2018-05-08 06:47 | Orthopedic Progress Note ---
Date of Service May 08, 2018 Assessment & Plan (1) Rotator cuff arthropathy of left shoulder: Overall she is doing very well. She does not have any pain in the shoulder. She will be seen by physical therapy today for range of motion exercises. She is on tramadol for pain control. Discharge her to home later this morning. I will see her in the office in 2 weeks. Present on Admission?: Yes Subjective Jasmin was seen and examined at bedside this morning. Overall she is doing very well. She is not having any pain in the left shoulder. She was able to get some sleep last night. She has no complaints. Physical Exam 2 Vital Signs (Past 24 Hours): Last Vital Signs Temp 36.7 C 05/08/18 03:01 Pulse 78 05/08/18 03:01 Resp 14 05/08/18 03:01 BP 135/77 05/08/18 03:01 Pulse Ox 94 05/08/18 03:01 Musculoskeletal: On physical examination of the left shoulder, the dressing is clean and dry. Her radial, median, and ulnar nerves are all checked and intact at the wrist. Her axillary nerve is not checked yet. She is wearing her sling as instructed. Results & Data Laboratory Results H & H 04/24/18 05/08/18 Range/Units 11:11 06:19 Hgb 13.5 11.3 L (12.0-16.0) g/dL Hct 42.1 35.1 L (37-47) % Coagulation 04/24/18 Range/Units 11:11 INR 1.0 (0.9-1.1) Diagnostic Findings Postoperative x-rays of the left shoulder show the prosthesis to be in anatomic alignment without any evidence of fracture, dislocation, or loosening.
--- NOTE | 2018-05-08 06:48 | Discharge Summary ---
Date of Service May 08, 2018 Admission HPI Per Admitting Provider Jasmin is a pleasant 82-year-old female who had a rotator cuff repair done by Dr. Farooq about 6 years ago. She initially did well and then 2 years ago she started to get significant left shoulder pain and weakness. X-rays and clinical examination have been diagnostic for rotator cuff arthropathy of the left shoulder. After failing conservative treatment, she elected to proceed with a reverse left shoulder arthroplasty. Specialty Data Orthopedic H & H 04/24/18 05/08/18 Range/Units 11:11 06:19 Hgb 13.5 11.3 L (12.0-16.0) g/dL Hct 42.1 35.1 L (37-47) % Coagulation 04/24/18 Range/Units 11:11 INR 1.0 (0.9-1.1) Discharge Data Consultations 05/07/18 10:56 Consult Case Management - Discharge Planning Routine Procedures Performed Operation Date: 05/07/18 09:00 Actual Procedures p Left Reverse Total Shoulder Replacement--Uncemented(Left) - Balwinder Nava DO Hospital Course (1) Rotator cuff arthropathy of left shoulder: On May 07, 2018 Jasmin arrived at [facility] and underwent a left reverse shoulder arthroplasty without complication. She had a general anesthetic and a left interscalene nerve block. Postoperatively she was placed in a sling and discharged to general orthopedic floors. Her hospital course is uneventful. On postop day #1 her H&H was stable and her pain was well controlled. She was able to participate well with physical therapy. She was then discharged to home with physical therapy. She will follow-up with orthopedics in 2 weeks. Discharge Instructions Home Medications Medication Instructions Recorded Confirmed calcium carbonate [Calcium 600] 600 mg PO QPM 04/19/18 05/07/18 cholecalciferol (vitamin D3) 4,000 unit PO QPM 04/19/18 05/07/18 [Vitamin D3] meloxicam 15 mg PO QAM 04/19/18 05/07/18 omega 2-pnz-qtd-fish oil [Fish Oil] 1 cap PO QPM 04/19/18 05/07/18 omeprazole 20 mg PO QAM 04/19/18 05/07/18 ranitidine HCl 150 mg PO QPM 01/04/19 01/22/19 sertraline 50 mg PO QAM 04/19/18 05/07/18 simvastatin 20 mg PO PM 04/19/18 05/07/18 vit C,V-Jt-uayqm-lutein-zeaxan 1 tab PO BID 04/19/18 05/07/18 [PreserVision AREDS-2] Previous Rx's Medication Instructions Recorded tramadol 50 - 100 mg PO Q4H PRN #40 tab 05/08/18
[2018-05-08 07:06] LABS: BUN Creatinine Ratio 17.9 (10-20); Calcium 8.4 mg/dl (8.5-10.1); Creatinine Clr Calc Pharmacy 43.1 ml/min; Est GFR (African American) 48.7; Est GFR (Non-African American) 42.1
[2018-05-08] MEDS: DOCUSATE SODIUM 100 MG CAP PO SCH (08:43)
[2018-05-08] MEDS ORDERED: SERTRALINE HCL 50 MG TABLET PO SCH (09:00)
[2018-05-08] MEDS ORDERED: PANTOprazole 40 MG TAB PO SCH (09:00)
[2018-05-08] MEDS ORDERED: MULTIVITAMIN TAB PO SCH (09:00)
== END 2018-05-08 10:49 | disposition home health service (06) | DRG 483 ==
LOC: ASU 06:15 → 3E 10:08

== ENCOUNTER 2019-09-09 07:11 | Inpatient (IN) ==
--- NOTE | 2019-09-04 12:21 | Anesthesiology Consultation ---
Date of Service September 04, 2019 Assessment & Plan (1) Encounter for pre-operative examination: Case R/S due to COVID19 pandemic. Patient seen at [facility] 06/11/19 and cleared for surgery by Clau Moralez PA-C. Nurse assessment updated 09/03. Preoperative labs out of date. Will need to be updated AM DOS -- CBC, BMP, PT/INR/PTT. COVID Status: As of nurse assessment 09/03, patient denies travel outside of [facility], known exposure/sick contacts, or symptoms. She was tested for COVID19 on 09/02 as preoperative screening by surgeon. Results pending. Seen by cardiology 05/01/18 (as preop evaluation for left shoulder replacement done 04/2018 at [facility]): "stable and asymptomatic from a CV standpoint with no anginal symptoms occurring at a fair functional status." EKG with possible i nferior/anterior [place]-- ECHO ordered to evaluation LV systolic function and wall motion. "Pending the results of the [ECHO], patient is at an acceptable risk to proceed with surgery without any additional CV testing or intervention." ECHO done 05/01/18 with EF 55-60%, no RWMA, no significant valvular disease. F/U as needed per cardiology. S/P left total reverse shoulder arthroplasty 05/07/18: Grade view 1, MAC#3, ETT 7.5 at [facility] Chart Review Chart Review: Acceptable Risk for Surgery (pending COVID19 results) and Patient seen in Pre Admission Testing (06/11 by Clau Moralez PA-C) History Surgery Operation Date: 09/09/19 09:15 Proposed Procedures p Right Reverse Total Shoulder Arthroplasty - Balwinder Nava, Height/Weight Height: 5 ft 7 in Weight: 101.605 kg Allergies Allergy/AdvReac Type Severity Reaction Status Date / Time Sulfa (Sulfonamide Allergy Severe FACIAL Verified 09/04/19 12:03 Antibiotics) SWELLING A TEEN Medications Home Medications Medication Instructions Recorded Confirmed Last Taken PreserVision AREDS-2 1 tab PO BID 04/19/18 09/04/19 04/23/18 calcium carbonate [Calcium 600] 600 mg PO QPM 04/19/18 09/04/19 05/06/18 17:00 cholecalciferol (vitamin D3) 4,000 unit PO QPM 04/19/18 09/04/19 05/06/18 17:00 [Vitamin D3] omega 1-ygs-grx-fish oil [Fish Oil] 1 cap PO QPM 04/19/18 09/04/19 04/23/18 meclizine 25 mg tablet 25 mg PO QID PRN #56 tab 12/01/18 09/04/19 Unknown simvastatin 20 mg tablet 20 mg PO PM #90 tab 12/13/18 09/04/19 Unknown amoxicillin 2,000 mg PO ONCE 06/04/19 09/04/19 Unknown gabapentin 300 mg PO QPM 06/04/19 09/04/19 Unknown meloxicam 15 mg PO QAM 06/04/19 09/04/19 Unknown omeprazole 20 mg PO QAM 06/04/19 09/04/19 Unknown sertraline 50 mg PO QAM 06/04/19 09/04/19 Unknown hydrocodone 5 mg-acetaminophen 325 1 tab PO DAILY PRN #20 tab 07/03/19 09/04/19 Unknown mg tablet Past Medical History Medical History Ankle pain, chronic chronic left ankle pain after ankle surgery/unable to walk or stand for long period of time/occasional cane Anxiety Avendaño's esophagus Benign positional vertigo Depression GERD (gastroesophageal reflux disease) controlled Hyperlipidemia Macular degeneration q4-6 weeks eye injections Obesity Osteoarthritis Osteoporosis Post herpetic neuralgia Prediabetes 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/no problems currently Past Family History Family History Mother Myocardial infarction Other No family history of adverse response to anesthesia Denies family history of Colon cancer Ovarian cancer Prostate cancer Breast cancer Past Surgical History Surgical History History of ankle surgery B/L History of back surgery lumbar discectomy History of carpal tunnel release RIGHT History of cholecystectomy History of colonoscopy History of esophagogastroduodenoscopy (EGD) History of foot surgery bilateal History of repair of rotator cuff B/L History of toe surgery RIGHT TOE AMPUTATION (2/2 OSTEOMYELITIS)= 12/12/17= MAC SEDATION AT [facility] History of tooth extraction History of total abdominal hysterectomy and bilateral salpingo-oophorectomy History of total knee replacement B/L History of total shoulder replacement left total reverse shoulder arthroplasty: 05/07/18: Grade view 1, MAC#3, ETT 7.5 at [facility] S/P hammer toe correction S/P trigger finger release Social History Smoking Status: Never smoker Do You Dip or Chew Tobacco: No Hx Alcohol Use: No Hx Substance Use: No substance use type: does not use
[2019-09-04 17:50] LABS: SARS CoV2 RNA (COVID-19) NOT DETECTED (NOT DETECTED)
--- NOTE | 2019-09-09 06:33 | History & Physical Report ---
Date of Service September 09, 2019 Assessment & Plan (1) Rotator cuff arthropathy of right shoulder: We will proceed with a right reverse shoulder arthroplasty. Postoperatively she will be placed in an arm sling and kept overnight in the hospital for postoperative medical management. She plans to use [employer] upon discharge. Jasmin is an increased risk for shoulder replacement surgery due to her advanced age, her obesity with a BMI over 35, and her prediabetic medical history. Present on Admission?: Yes History of Present Illness Chief Complaint: Rotator cuff arthropathy of the right shoulder Primary Care Provider: Bebo Correa MD Jasmin is a pleasant 83-year-old female who is 1 year status post left reverse shoulder arthroplasty. She is doing very well with that. Unfortunately she is dealing with right shoulder pain. X-rays and clinical examination have been diagnostic for rotator cuff arthropathy of the right shoulder. After failing conservative treatment, she has elected to proceed with a right reverse shoulder arthroplasty. Allergies Allergy/AdvReac Type Severity Reaction Status Date / Time Sulfa (Sulfonamide Allergy Severe FACIAL Verified 09/04/19 12:03 Antibiotics) SWELLING A TEEN Home Medications Home Medications Medication Instructions Recorded Confirmed Type PreserVision AREDS-2 1 tab PO BID 04/19/18 09/04/19 History calcium carbonate [Calcium 600] 600 mg PO QPM 04/19/18 09/04/19 History cholecalciferol (vitamin D3) 4,000 unit PO QPM 04/19/18 09/04/19 History [Vitamin D3] omega 1-eph-klz-fish oil [Fish Oil] 1 cap PO QPM 04/19/18 09/04/19 History meclizine 25 mg tablet 25 mg PO QID PRN #56 tab 12/01/18 09/04/19 History simvastatin 20 mg tablet 20 mg PO PM #90 tab 12/13/18 09/04/19 Rx amoxicillin 2,000 mg PO ONCE 06/04/19 09/04/19 History gabapentin 300 mg PO QPM 06/04/19 09/04/19 History meloxicam 15 mg PO QAM 06/04/19 09/04/19 History omeprazole 20 mg PO QAM 06/04/19 09/04/19 History sertraline 50 mg PO QAM 06/04/19 09/04/19 History hydrocodone 5 mg-acetaminophen 325 1 tab PO DAILY PRN #20 tab 07/03/19 09/04/19 Rx mg tablet Past Med/Surg History Medical History Ankle pain, chronic chronic left ankle pain after ankle surgery/unable to walk or stand for long period of time/occasional cane Anxiety Avendaño's esophagus Benign positional vertigo Depression GERD (gastroesophageal reflux disease) controlled Hyperlipidemia Macular degeneration q4-6 weeks eye injections Obesity Osteoarthritis Osteoporosis Post herpetic neuralgia Prediabetes 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/no problems currently Surgical History History of ankle surgery B/L History of back surgery lumbar discectomy History of carpal tunnel release RIGHT History of cholecystectomy History of colonoscopy History of esophagogastroduodenoscopy (EGD) History of foot surgery bilateal History of repair of rotator cuff B/L History of toe surgery RIGHT TOE AMPUTATION (2/2 OSTEOMYELITIS)= 12/12/17= MAC SEDATION AT [facility] History of tooth extraction History of total abdominal hysterectomy and bilateral salpingo-oophorectomy History of total knee replacement B/L History of total shoulder replacement left total reverse shoulder arthroplasty: 05/07/18: Grade view 1, MAC#3, ETT 7.5 at [facility] S/P hammer toe correction S/P trigger finger release Family History Mother Myocardial infarction Other No family history of adverse response to anesthesia Denies family history of Colon cancer Ovarian cancer Prostate cancer Breast cancer Social History Preferred Language: Congolese Communication Ability: Effective Visual Impairment: No Limitations Hearing Ability: Normal 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: No Beliefs That Will Affect Care: None marital status: Current Living Situation: Spouse current occupational status: retired Feels Safe at Home: Yes Smoking Status: Never smoker Second Hand Exposure: No ; Hx Alcohol Use: No Hx Substance Use: No Childhood Exposure to Second-Hand Smoke: Yes Dental Care, Regularly: Yes Seatbelt Use: always Review of Systems Review of Systems: All systems reviewed & are unremarkable except as noted in HPI & below Physical Exam Constitutional: WD/WN, vitals as above Eyes: PERRL, conjunctivae normal, anicteric sclerae ENMT: external ear and nose normal, oropharynx normal Neck: trachea midline, no thyromegaly Respiratory: normal respiratory effort Cardiovascular: RRR, no murmur, no edema Gastrointestinal (Abdomen): normal bowel sounds, soft, nontender, no hepatosplenomegaly Musculoskeletal: Physical examination of the right shoulder reveals decreased range of motion and significant weakness. There is tenderness palpation along the anterior glenohumeral joint line. The right upper extremity is neurovascularly intact. Psychiatric: A+Ox3, euthymic affect Results & Data Results & Data ([facility]) Diagnostic Findings Radiographs of the right shoulder show some signs of osteoarthritis with blunting of the greater tuberosity and some superior migration of the humeral head on the glenoid. PG Care Time/CCT Total # of Minutes Spent Total Time Spent with Patient: Total time spent is greater than 50% in coordination of care (as documented) at patient's floor/unit and/or counseling patient: Coding Level of Care Code 77812 Initial Inpt Care Lvl 3 Diagnoses Rotator cuff arthropathy of right shoulder M12.811
[~2019-09-09 07:11] MED LIST changes: +BUPIVACAINE 0.5 % 5 MG/1 ML PF 10ML VIAL ONE; +GABAPENTIN 300 MG CAP PO SCH; -GABAPENTIN 300 MG PO SCH; +TRANEXAMIC ACID 1,000 MG **IV Intra-op IV SCH; +dexAMETHasone 4 MG TAB PO SCH
[2019-09-09 07:55] LABS: Hematocrit (blood only) 44.5 % (37-47); Hemoglobin 14.4 g/dL (12.0-16.0); Mean Corpuscular Hemoglobin 29.7 pg (25-34); Mean Corpuscular Volume 91.8 fL (80-100); Mean Platelet Volume 10.5 fL (7.4-10.4); Platelet Count 336 K/uL (130-400); RDW Coefficient of Variation 13.5 % (11.5-14.5); RDW Standard Deviation 45.1 fL (36.4-46.3); Red Blood Count 4.85 M/uL (4.2-5.4); White Blood Count 7.75 K/uL (4.8-10.8)
[2019-09-09 07:58] LABS: Mean Corpuscular Hgb Conc 32.4 g/dL (32-36)
[2019-09-09 08:06] LABS: Partial Thromboplastin Time 28.5 Seconds (21.0-31.0); Prothrombin Time 10.9 Seconds (9.0-12.0)
[2019-09-09] MEDS ORDERED: fentaNYL citrate 100 MCG/2 ML VIAL ONE (08:08)
[2019-09-09] MEDS ORDERED: MIDAZOLAM HCL 1 MG/ML 2ML VIAL ONE ×2 (08:08→09:30)
[2019-09-09 08:15] LABS: BUN Creatinine Ratio 15.9 (10-20); Calcium 9.9 mg/dl (8.5-10.1); Est GFR (African American) 58.9; Est GFR (Non-African American) 50.8
[2019-09-09] MEDS ORDERED: HYDROmorphone INJ 2 MG/ML SYR/VIAL IV PRN (09:13)
[2019-09-09] MEDS ORDERED: ONDANSETRON INJ 2 MG/ML 2 ML VIAL IV PRN ×2 (09:13→12:45)
[2019-09-09] MEDS ORDERED: ePHEDrine sulfate 50 MG/ML AMP IV PRN (09:13)
[2019-09-09] MEDS ORDERED: ATROPINE SULFATE 0.1 MG/ML 10ML SYR IV PRN (09:13)
[2019-09-09] MEDS ORDERED: fentaNYL citrate 100 MCG/2 ML VIAL IV PRN (09:13)
[2019-09-09] MEDS ORDERED: METOCLOPRAMIDE HCL INJ 5 MG/ML 2 ML VIAL IV PRN ×2 (09:13→12:45)
[2019-09-09] MEDS ORDERED: PROMETHAZINE HCL 12.5 MG in SODIUM CHLORIDE 0.9% 50 ML IV PRN (09:13)
[2019-09-09] MEDS ORDERED: ORTHO JOINT ANESTHETIC ONE (09:27)
[2019-09-09] MEDS ORDERED: PROPOFOL IV EMULSION 10 MG/ML 20 ML VIAL IV ONE (09:28)
[2019-09-09] MEDS ORDERED: LIDOCAINE HCL 2% 2 ML VIAL/AMP(20MG/ML) INFIL ONE (09:28)
[2019-09-09] MEDS ORDERED: ONDANSETRON INJ 2 MG/ML 2 ML VIAL ONE (09:29)
[2019-09-09] MEDS ORDERED: DEXAMETHASONE SOD INJ 4 MG/ML VIAL ONE (09:29)
[2019-09-09] MEDS ORDERED: ePHEDrine sulfate 50 MG/ML AMP ONE (10:14)
--- NOTE | 2019-09-09 11:09 | Operative Report ---
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 tendon Post-Op Diagnosis: RIGHT SHOULDER DEGENERATIVE JOINT DISEASE with disease of the long head of the biceps tendon I identified the patient and participated in the time-out.: Yes Procedure Operation Date: 09/09/19 09:15 Actual Procedures p Right Reverse Total Shoulder Arthroplasty with open subpectoral biceps tenodesis as a separate procedure (modifier 59) (Right) - Balwinder Nava DO Surgeon Balwinder Nava, Transverse Abdominal Muscle Surgeon Balwinder Oscar PAC Estimated Blood Loss 200 Findings Consistent with Post-Op Diagnosis Specimens Right humeral head Complications none Disposition Disposition: Recovery Room Indications Jasmin is a pleasant 83-year-old female who is been doing chronic increasing right shoulder pain. X-rays and clinical examination were diagnostic for rotator cuff arthropathy of the right shoulder. After failing conservative treatment, she has elected to proceed with a reverse right shoulder arthroplasty. She had a reverse left shoulder arthroplasty done over a year ago and has done well with that. Description of Procedure A CPT code modifier 59: The long head of the biceps tendon was enlarged and inflamed consistent with tendinopathy. A tenodesis was opted. This was a separate and distinct portion of the procedure. For these reasons, a CPT code modifier 59 will be added to this case. Implants used: I used a [employer] Comprehensive reverse total shoulder arthroplasty system with a size 11 press fit micro humeral stem, a standard humeral tray and a standard humeral bearing, a 25 mm mini baseplate with a 6.5 mm central screw and superior and inferior locking screws, and a size 36 mm +3 eccentric glenosphere. Jasmin arrived at [facility] for the above procedure. She was seen in the preoperative holding area and the operative extremity was identified and signed. She was given a preoperative antibiotic, TXA, and an interscalene nerve block. She was taken back to the operating room, laid on table in supine position, and put under general anesthesia. She was then put into the beachchair position. The shoulder was then prepped and draped in sterile fashion. A timeout was done and the patient and the operative extremity was properly identified. A deltopectoral approach was used. Dissection was taken down through the fascia and the deltoid was retracted laterally and the conjoined tendon was retracted medially. The anterior shoulder was exposed. The biceps groove was opened up and the biceps tendon was examined extensively. The biceps tendon demonstrated enlargement and inflammatory changes consistent with longstanding inflammation in the context of osteoarthritis and cuff arthropathy. The long head of the biceps tendon was then tenodesed to the upper border of the pectoralis major. This was a separate and distinct portion of the procedure. The subscapularis was then directly released off the lesser tuberosity with a peel technique. The inferior capsule was released and the humeral head was dislocated. A canal finding reamer was sent down the center of the humeral canal. Sequential reaming up to a size 11 reamer was done. Off that reamer, a proximal humeral resection guide was placed. The proximal humerus was resected at 135 of inclination and 25 of retroversion. Osteophytes were then removed and the glenoid was exposed. Time was spent doing a complete capsular and labral release. A AquaHydrate signature guide was then attached onto the anterior rim of the glenoid. A 3.2 mm Steinmann pin was then placed in the reverse total shoulder arthroplasty hole. The glenoid baseplate was then reamed. The final size 25 mm mini baseplate was then impacted in the place. A 6.5 mm central screw was then placed followed by superior and inferior locking screws. A 36 mm +3 eccentric glenosphere was then impacted into place. Surrounding soft tissues were then injected with 100 cc an orthopedic pain control cocktail. The proximal humerus was then exposed. Sequential broaching of the humerus up to a size 11 broach was done. Off that broach a standard humeral tray was trialed. The shoulder was then reduced, brought through a full range of motion, and felt to be stable. The shoulder was then dislocated and the broach was removed. The final size 11 micro press-fit humeral stem was then impacted into place. A standard humeral bearing was then snapped onto a standard humeral tray. The humeral tray was then impacted onto the humeral stem. The shoulder was once again reduced, brought through a full range of motion, and felt to be stable. The subscapularis was then tenodesed back to the lesser tuberosity with transosseous FiberWire sutures and side to side sutures with the arm in 45 of external rotation. A dilute betadyne lavage was then done for 3 minutes. The joint was then irrigated with normal saline solution. Hemostasis was obtained. The interval was closed with 2-0 Vicryl suture. The skin was then closed with 2-0 Vicryl and london. A soft dressing was placed and the arm was rested in a regular arm sling. She was then extubated and transferred to a hospital bed. She taken to the postanesthesia care unit in stable condition. She tolerated the procedure well. Balwinder Oscar PA-C, was present for the entire procedure. He was critical for patient positioning, prepping, draping, retraction exposure, wound closure and application of sterile dressing. I attest to the content of the Intraoperative Record and any orders documented therein. Any exceptions are noted below.
--- NOTE | 2019-09-09 12:18 | Anesthesiology Progress Note ---
Date of Service September 09, 2019 Anesthesia Post Procedure Vital Signs Vital Signs: Temp Pulse Pulse Resp BP BP Pulse Ox 09/09/19 11:55 36.8 C 95 H 16 134/58 L 94 09/09/19 11:45 98 H 18 125/78 96 09/09/19 11:35 93 H 17 173/92 H 97 09/09/19 11:27 36 C L 95 H 16 169/83 H 99 09/09/19 07:55 37.2 C 87 20 153/97 H 95 Pain Intensity Left Shoulder: Pain Intensity: 3 Transfer of Care Handoff Completed per policy Notes Mental Status: alert / awake / arousable and participated in evaluation Patient Amnestic to Procedure: Yes Nausea / Vomiting: adequately controlled Pain: adequately controlled Airway Patency, RR, SpO2: stable & adequate BP & HR: stable & adequate Hydration State: stable & adequate Anesthetic Complications: no major complications apparent
--- NOTE | 2019-09-09 12:19 | XRay Report ---
XR shoulder RT min 2V routine HISTORY: 83 years-old Female Post shoulder surgery reverse right shoulder total joint arthroplasty COMPARISON: Right shoulder radiographs 04/29/2019 TECHNIQUE: 2 views of the right shoulder FINDINGS: Reverse right shoulder total joint arthroplasty demonstrates satisfactory alignment. Widened AC joint , 2.0 cm. No acute fracture. Dystrophic calcifications are noted adjacent to the acromium. Expected p ostoperative soft tissue swelling and deep tissue air with skin london. IMPRESSION: Reverse right shoulder total joint arthroplasty with expected postoperative findings. ACT 112: Negative or not required by law. The above report was generated using voice recognition software. It may contain grammatical, syntax o r spelling errors. Electronically signed by: Larry Guzman M.D. 09/09/2019 12:18 PM
[2019-09-09] MEDS ORDERED: OXYCODONE HCL IR 5 MG TAB (IMMEDIATE RELEASE) PO PRN (12:45)
[2019-09-09] MEDS ORDERED: NALOXONE HCL 0.4 MG/1 ML VIAL/CARP IV PRN (12:45)
[2019-09-09] MEDS ORDERED: bisacodyL 10 MG SUPP PR PRN (12:45)
[2019-09-09] MEDS ORDERED: MAGNESIUM HYDROXIDE SUSP 30 ML UDC PO PRN (12:45)
[2019-09-09] MEDS ORDERED: MECLIZINE HCL 25 MG TAB PO PRN (13:06)
[2019-09-09] MEDS: SODIUM CHLORIDE 0.9% 1000ML 1,000 ML IV SCH ×2 (13:13→21:40)
[2019-09-09] MEDS: ACETAMINOPHEN 500 MG TAB PO SCH ×2 (14:42→21:41)
[2019-09-09] MEDS: CEFAZOLIN 2000MG 2,000 MG/15 ML SYR IV SCH ×2 (16:07→23:24)
[2019-09-09] MEDS ORDERED: NON-FORMULARY MEDICATION (Vit C,E-Zn-Coppr-Lutein-Zeaxan [Preservision Areds-2] 1 TAB) PO SCH (21:00)
[2019-09-09] MEDS ORDERED: GABAPENTIN 300 MG CAP PO SCH (21:00)
[2019-09-09] MEDS ORDERED: OMEGA-3 (PURIFIED FISH OIL) 1 GM CAP PO SCH (21:00)
[2019-09-09] MEDS ORDERED: SENNA 8.6 MG TAB PO SCH (21:00)
[2019-09-09] MEDS ORDERED: SIMVASTATIN 20 MG TAB PO SCH (21:00)
[2019-09-09] MEDS: DOCUSATE SODIUM 100 MG CAP PO SCH (21:41)
[2019-09-10 05:40] LABS: Basophils # (auto) 0.01 K/uL (0-0.2); Basophils % (auto) 0.1 %; Hematocrit (blood only) 36.4 % (37-47); Hemoglobin 11.7 g/dL (12.0-16.0); Immature Granulocytes # (auto) 0.07 K/uL (0.00-0.02); Immature Granulocytes % (auto) 0.4 %; Lymphocytes # (auto) 1.25 K/uL (1.2-3.4); Lymphocytes % (auto) 7.5 %; Mean Corpuscular Hemoglobin 29.9 pg (25-34); Mean Corpuscular Hgb Conc 32.1 g/dL (32-36); Mean Corpuscular Volume 93.1 fL (80-100); Mean Platelet Volume 10.7 fL (7.4-10.4); Monocytes # (auto) 0.99 K/uL (0.11-0.59); Monocytes % (auto) 5.9 %; Neutrophils # (auto) 14.33 K/uL (1.4-6.5); Neutrophils % (auto) 86.1 %; Platelet Count 298 K/uL (130-400); RDW Coefficient of Variation 13.6 % (11.5-14.5); RDW Standard Deviation 45.9 fL (36.4-46.3); Red Blood Count 3.91 M/uL (4.2-5.4); White Blood Count 16.65 K/uL (4.8-10.8)
[2019-09-10] MEDS: ACETAMINOPHEN 500 MG TAB PO SCH (06:14)
[2019-09-10 06:17] LABS: BUN Creatinine Ratio 16.2 (10-20); Calcium 8.2 mg/dl (8.5-10.1); Creatinine Clr Calc Pharmacy 40.6 ml/min; Est GFR (African American) 44.8; Est GFR (Non-African American) 38.6; Potassium 4.4 mmol/L (3.5-5.1)
--- NOTE | 2019-09-10 06:57 | Orthopedic Progress Note ---
Date of Service September 10, 2019 Assessment & Plan (1) Status post reverse arthroplasty of right shoulder: Overall she is doing very well. She is having much pain in the right shoulder. She will be seen by physical therapy today for ambulation and range of motion exercises. She can be discharged home later today. She will follow- up with orthopedics in 2 weeks. Present on Admission?: Yes Subjective Jasmin was seen and examined at bedside this morning. Overall she is doing very well. She is not having pain in the right shoulder. She is happy with her progress and has no complaints. Physical Exam Musculoskeletal: On physical examination of the right shoulder, the dressing is clean and dry. She is wearing her sling as instructed. She is unable to extend her wrist or extend her fingers at this time. Her whole hand is still numb. This is all secondary to the interscalene block. Results & Data ([facility]) Vital Signs (Past 12 Hours) Vital Signs Temp Pulse Resp BP Pulse Ox 09/10/19 03:50 36.9 C 76 18 121/77 91 09/09/19 22:39 37.1 C 84 18 134/78 92 09/09/19 19:26 37.2 C 95 H 17 104/56 L 92 Laboratory Results H & H 09/09/19 09/10/19 Range/Units 07:35 05:02 Hgb 14.4 11.7 L (12.0-16.0) g/dL Hct 44.5 36.4 L (37-47) % Coagulation 09/09/19 Range/Units 07:35 INR 1.0 (0.9-1.1) Diagnostic Findings Postoperative x-rays of the right shoulder show the prosthesis to be in anatomic alignment without any evidence of fracture, dislocation, or loosening. PG Care Time/CCT Total # of Minutes Spent Total Time Spent with Patient: Total time spent is greater than 50% in coordination of care (as documented) at patient's floor/unit and/or counseling patient: Coding Level of Care Code None Diagnoses Status post reverse arthroplasty of right shoulder Z96.611
--- NOTE | 2019-09-10 06:58 | Discharge Summary ---
Date of Service September 10, 2019 Admission HPI Per Admitting Provider Jasmin is a pleasant 83-year-old female who is 1 year status post left reverse shoulder arthroplasty. She is doing very well with that. Unfortunately she is dealing with right shoulder pain. X-rays and clinical examination have been diagnostic for rotator cuff arthropathy of the right shoulder. After failing conservative treatment, she has elected to proceed with a right reverse shoulder arthroplasty. Principal Diagnosis Right reverse shoulder arthroplasty Discharge Data Allergies Allergy/AdvReac Type Severity Reaction Status Date / Time Sulfa (Sulfonamide Allergy Severe FACIAL Verified 09/09/19 07:49 Antibiotics) SWELLING A TEEN Consultations 09/09/19 12:45 Consult Case Management - Discharge Planning Routine Procedures Performed Operation Date: 09/09/19 09:15 Actual Procedures p Right Reverse Total Shoulder Arthroplasty(Right) - Balwinder Nava DO Ordered Studies 09/09/19 05:00 US - OR guided needle placemen Routine Hospital Course (1) Status post reverse arthroplasty of right shoulder: On September 09, 2019 Jasmin arrived at [facility] and underwent a right reverse shoulder arthroplasty without complication. She had a general anesthetic and a right interscalene nerve block. Postoperatively she was placed in an arm sling and transferred to the general orthopedic floors. Her hospital course was uneventful. On postop day #1 her H&H was stable and her pain was well controlled. She was able to participate well with physical therapy doing ambulation and range of motion exercises. She was then discharged to home. She will follow-up with orthopedics in 2 weeks. Total Time Total Time Spent Total Time Spent (In Minutes): 20 Discharge Plan Discharge Items Patient Disposition: Home - Self-Care Reason For Visit: RIGHT SHOULDER DEGENERATIVE JOINT DISEASE Discharge Diagnosis: Right reverse shoulder arthroplasty Activity: As commented below Non-emergency contact: Surgeon Call non-emergency contact if: your wound has increased redness and your wound has increased drainage Follow-up/Referrals: Pro,Bebo Ball MD [Primary Care Provider] - Diet: Regular Addtl Attending Provider Instructions: Activity and Therapy Recommendations: * If you are using [facility] then therapy will be provided at your home until they feel you have accomplished all of your goals. * If you are using [facility] then Physical Therapy will be provided until they feel you are ready to start Outpatient Physical Therapy. * If you are not using home therapy then Outpatient Physical Therapy should start about 3-5 days from your day of surgery. Therapy will last about 8-12 weeks * Wear your sling for 3 weeks, unless otherwise instructed. You may remove your sling to shower and to dress, but otherwise, you should be in your sling at all times, including while sleeping * The shoulder replacement is very stable and you can use your hand while in the sling * You were shown a series of exercises in the hospital. Do these exercises daily including the exercises you were shown in physical therapy. Medications: * Narcotic You will likely be sent home from the hospital with a prescription for the narcotic pain medication that worked best throughout your stay. * Other medications may be prescribed for specific circumstances. If you have any questions, please call the office at . * Resume previous home medications unless otherwise instructed Dressing Care: Leave the plastic dressing in place for 5 days. After 5 days you may remove the plastic dressing. If the incision is not draining then you may leave the london open to air. If there is a little bit of drainage or if the london are getting stuck on your clothing then cover the incision with a dry dressing. The london will be removed at your 2 week follow-up appointment. Showering: You may shower with the plastic dressing in place. Let the shower spray hit the other shoulder. You can pat the plastic dry. If the dressing becomes wet underneath the plastic then simply remove the dressing. Keep the incision dry until you are 5 days out from the day of surgery. At that time you can shower with the london exposed. Let the soapy shower water run over the london and pat them dry. Do not scrub or soak the incision. Things To Watch For: * Drainage from the incision site that occurs more than one week after your surgery. * Increased redness at the incision site. * Fever above 102 degrees Fahrenheit. * Unusual chest pain or shortness of breath. * Call [facility] at with any of the above problems Follow-Up Visit: Follow-up with Dr. Nava's PA (Balwinder Oscar) 2-3 weeks after your day of surgery. He will remove your london and answer any questions. If you have any additional questions or concerns, Dr Nava is usually in the office at the same time and will be available An appointment was probably scheduled when you signed-up for surgery in the office. If you have any questions call More detailed instructions as well as Frequently Asked Questions were provided in a folder by our office when you signed-up for surgery. Please review these instructions when you get home. If you have any further questions or concerns, please feel free to call the office at [phone] Pending Studies at Discharge: No Stand-Alone Forms: [facility], Smoking Cessation Medications and DC Order Prescriptions: New oxycodone 5 mg Tablet 5 mg PO Q4H PRN (Reason: pain) Qty: 30 RF: 0 oxycodone 5 mg tablet 5 mg PO Q6H PRN (Reason: pain) Qty: 30 RF: 0 Continued simvastatin 20 mg tablet 20 mg PO PM Qty: 90 RF: 3 meclizine 25 mg tablet 25 mg PO QID PRN (Reason: dizziness) Qty: 56 RF: 0 calcium carbonate [Calcium 600] 600 mg calcium (1,500 mg) Tablet 600 mg PO QPM RF: 0 cholecalciferol (vitamin D3) [Vitamin D3] 2,000 unit Tablet 4,000 unit PO QPM RF: 0 omega 0-bic-mlw-fish oil [Fish Oil] 1,000 mg (120 mg-180 mg) Capsule 1 cap PO QPM RF: 0 PreserVision AREDS-2 [id number] Capsule 1 tab PO BID RF: 0 meloxicam 15 mg tablet 15 mg PO QAM RF: 0 amoxicillin 500 mg tablet 2,000 mg PO ONCE RF: 0 gabapentin 300 mg capsule 300 mg PO QPM RF: 0 omeprazole 20 mg capsule,delayed release(DR/EC) 20 mg PO QAM RF: 0 sertraline 50 mg tablet 50 mg PO QAM RF: 0 Discontinued hydrocodone-acetaminophen 5-325 mg tablet 1 tab PO DAILY PRN (Reason: pain) Qty: 20 RF: 0 Discharge Orders: Discharge Order (Routine); Ordered 09/10/19 Ordered By: Balwinder Nava Admission Data Admit Date/Time: 09/09/19 11:30 Attending Provider: Balwinder Nava Admit Provider: Balwinder Nava Primary Care Provider: Bebo Correa Coding Level of Care Code D/C Day Management <30 mins Diagnoses Status post reverse arthroplasty of right shoulder Z96.611
[2019-09-10] MEDS ORDERED: dexAMETHasone 4 MG TAB PO SCH (08:00)
[2019-09-10] MEDS: DOCUSATE SODIUM 100 MG CAP PO SCH (08:17)
[2019-09-10] MEDS ORDERED: SERTRALINE HCL 50 MG TABLET PO SCH (09:00)
[2019-09-10] MEDS ORDERED: PANTOprazole 40 MG TAB PO SCH (09:00)
[2019-09-10] MEDS ORDERED: MULTIVITAMIN TAB PO SCH (09:00)
[2019-09-10] MEDS ORDERED: MELOXICAM 7.5 MG TAB PO SCH (09:00)
== END 2019-09-10 12:19 | disposition home or self-care (01) | DRG 483 ==
LOC: ASU 07:11 → 3E 11:30

== ENCOUNTER 2023-02-02 11:56 | Observation (INO) ==
[2023-02-02 12:49] LABS: Basophils # (auto) 0.09 K/uL (0.00-0.20); Basophils % (auto) 0.8 %; Basophils % (auto) 0.9 %; Eosinophils % (auto) 0.9 %; Hematocrit (blood only) 40.1 % (37.0-47.0); Hematocrit (blood only) 40.9 % (37.0-47.0); Hemoglobin 13.2 g/dl (12.0-16.0); Immature Granulocytes # (auto) 0.09 K/uL (0.01-0.20); Immature Granulocytes # (auto) 0.12 K/uL (0.01-0.20); Immature Granulocytes % (auto) 0.8 %; Immature Granulocytes % (auto) 1.1 %; Lymphocytes # (auto) 2.56 K/uL (1.20-3.40); Lymphocytes # (auto) 2.61 K/uL (1.20-3.40); Lymphocytes % (auto) 23.2 %; Mean Corpuscular Hemoglobin 29.7 pg (25.0-34.0); Mean Corpuscular Hemoglobin 29.8 pg (25.0-34.0); Mean Corpuscular Hgb Conc 32.3 g/dL (32.0-36.0); Mean Corpuscular Hgb Conc 32.4 g/dL (32.0-36.0); Mean Corpuscular Volume 92.1 fL (80.0-100.0); Mean Platelet Volume 10.5 fL (9.4-12.4); Monocytes # (auto) 0.85 K/uL (0.11-0.59); Monocytes # (auto) 0.86 K/uL (0.11-0.59); Monocytes % (auto) 7.6 %; Monocytes % (auto) 7.7 %; Neutrophils # (auto) 7.43 K/uL (1.40-6.50); Neutrophils # (auto) 7.45 K/uL (1.40-6.50); Neutrophils % (auto) 66.3 %; Neutrophils % (auto) 66.8 %; Platelet Count 387 K/uL (130-400); Platelet Count 403 K/uL (130-400); RDW Coefficient of Variation 13.7 % (11.5-14.5); RDW Coefficient of Variation 13.8 % (11.5-14.5); RDW Standard Deviation 46.6 fL (36.4-46.3); Red Blood Count 4.36 M/uL (4.20-5.40); Red Blood Count 4.44 M/uL (4.20-5.40); White Blood Count 11.13 K/ul (4.8-10.8); White Blood Count 11.23 K/ul (4.8-10.8)
[2023-02-02 13:09] LABS: Albumin Globulin Ratio 1.5 (0.9-2); Albumin Level 4.1 gm/dl (3.4-5.0); BUN Creatinine Ratio 42.3 (10-20); Bilirubin,Total 1.1 mg/dl (0.2-1.0); Calcium 9.3 mg/dl (8.6-10.3); Est GFR (African American) 79.2 ml/min; Est GFR (Non-African American) 68.4 ml/min; Globulin 2.8 gm/dl (2.5-4.0); Potassium 3.7 mmol/L (3.5-5.1); Total Protein 6.9 gm/dl (6.0-8.3)
[2023-02-02 13:15] LABS: INR 1.1 (0.9-1.1); Prothrombin Time 11.6 Seconds (9.0-12.0)
--- NOTE | 2023-02-02 13:19 | Gastrointestinal Consultation ---
Date of Consultation February 02, 2023 Assessment & Plan (1) Melena: Plan 87 year old female s/p EUS/ERCP for treatment of CBD stones who presents with melena, concerning for UGI bleeding Please admit IV PPI bolus/drip NPO EGD/ERCP timing to be determined Trend H&H Transfuse PRN Monitor and document GI output We appreciate assistance in the management of any serological abnormality and corrections to include: hemoglobin >7, INR <2, platelets >50,000, potassium levels >3.5 but <5.3, and sodium levels within 5 points of the reference range prior to endoscopic evaluation. Thank you for allowing us to participate in the care of this patient. Please call with any acute changes, questions or concerns. Please see addendum below with additional recommendation from my supervising physician. Supervising Physician Co-Signing Physician Notes Patient had presented earlier this week with abdominal discomfort, she underwent ERCP with gallstone extraction. This morning she noted having dark sticky stools numerous times and has presented to the emergency room for further evaluation. Based on the patient's history we wonder about a post sphincterotomy bleed. We will proceed with ERCP today for treatment of the suspected bleeding site. Impression: Patient with melena suspected to be from postsphincterotomy bleed. We will plan to do ERCP and upper endoscopy today for further evaluation. We discussed the risks to include bleeding infection perforation pain and need for follow-up studies. plan ERCP today History of Present Illness Reason for Consultation: melena History of Present Illness 87 year old female with history of anxiety, Avendaño, depression, GERD, dyslipide rené, OA and others below who presents for evaluation of melena, recent EUS/ERCP for treatment of CBD stone and elevated LFTs. ERCP 02/01/23: cbd stones, removed by sphincterotomy and balloon extraction Allergies Allergy/AdvReac Type Severity Reaction Status Date / Time Sulfa (Sulfonamide Allergy Severe FACIAL Verified 02/02/23 13:37 Antibiotics) SWELLING A TEEN Home Medications Medication Instructions Recorded Confirmed Type calcium carbonate 600 mg calcium 600 mg PO QPM 04/19/18 02/02/23 History (1,500 mg) tablet (Calcium) cholecalciferol (vitamin D3) 50 4,000 unit PO QPM 04/19/18 02/02/23 History mcg (2,000 unit) tablet (Vitamin D3) omega 1-nwv-gyf-fish oil 1,000 mg 1 cap PO QPM 04/19/18 02/02/23 History (120 mg-180 mg) capsule (Fish Oil) vit C 250 mg-vit E 90 mg-zinc 40 1 tab PO BID 04/19/18 02/02/23 History mg-copper 1 cz-[id number] capsule (PreserVision AREDS-2) amoxicillin 500 mg tablet 2,000 mg PO UD PRN PRE DENTAL 01/10/22 02/02/23 History pantoprazole 40 mg tablet,delayed 40 mg PO BID #180 tabs 06/20/22 02/02/23 Rx release simvastatin 20 mg tablet 20 mg PO PM #90 tabs 06/20/22 02/02/23 Rx alendronate 70 mg tablet 70 mg PO WK 02/02/23 02/02/23 History ciprofloxacin HCl 500 mg tablet 500 mg PO BID 02/02/23 02/02/23 History pregabalin 25 mg capsule 25 mg PO AMPM 02/02/23 02/02/23 History sertraline 100 mg tablet 100 mg PO QAM 02/02/23 02/02/23 History Patient History Medical History (Updated 02/02/23 @ 15:15 by Paty Romo PA-C) Abdominal pain ONGOING FOR AWHILE...REASON FOR UPCOMING PROCEDURE NO CHANGES IN BASELINE Ankle pain, chronic chronic left ankle pain after ankle surgery/unable to walk or stand for long period of time/occasional cane 2021 better since most recent [place] [facility] [place] Anxiety Arthritis of carpometacarpal (CMC) joint of both thumbs Avendaño's esophagus Benign positional vertigo Occasional Depression Encounter for pre-operative examination GERD (gastroesophageal reflux disease) controlled History of colon polyps Hyperlipidemia Left carpal tunnel syndrome Macular degeneration q4-6 weeks eye injections Neuropathy Obesity Osteoarthritis Osteoporosis Prediabetes Right wrist sprain Temporomandibular joint disorder Hx clicking, no locking Trochanteric bursitis, left hip BOTH HIPS - INJECTION IN BOTH SEP 2021 Surgical History (Updated 02/02/23 @ 15:15 by Paty Romo PA-C) History of ankle surgery SEVERAL SX- MOST RECENT LEFT ANKLE DONE [place] [facility] [place]IN LAST 2 YRS X2, r ankle surgery History of back surgery lumbar discectomy History of carpal tunnel release RIGHT History of cholecystectomy History of colonoscopy History of esophagogastroduodenoscopy (EGD) History of foot surgery bilateral History of incisional hernia repair (10/25/21) Open Incisional Hernia Repair(Not Applicable) - Christoph Villar DO History of repair of rotator cuff B/L History of toe surgery RIGHT TOE AMPUTATION (2/2 OSTEOMYELITIS)= 12/12/17= MAC SEDATION AT [facility] Left third toe amputation (06/15/21): MAC at [facility] [place]. No issues noted per post-op anesthesia progress note. History of tooth extraction History of total abdominal hysterectomy and bilateral salpingo-oophorectomy History of total left knee replacement History of total right knee replacement History of total shoulder replacement left and right total reverse shoulder Previous section x2 S/P ERCP S/P hammer toe correction S/P trigger finger release Family History Mother Myocardial infarction Hypertension Father History of lung cancer Denies family history of Colon cancer Ovarian cancer Prostate cancer Hearing loss No family history of adverse response to anesthesia No family history of bleeding disorder Heart disease Allergies Breast cancer Stroke Asthma Social History Smoking Status: Never smoker Second Hand Exposure: No; Do You Dip or Chew Tobacco: No; Hx Alcohol Use: No Hx Substance Use: No Preferred Language: Azeri Communication Ability: Effective Visual Impairment: Limited Hearing Ability: Normal Audio Visual Collections Coordinator Required: No Beliefs That Will Affect Care: None marital status: Current Living Situation: Spouse current occupational status: retired How many Children do You have: 4 Feels Safe at Home: Yes Childhood Exposure to Second-Hand Smoke: Yes during the past year weight has: decreased > 10 lbs Dental Care, Regularly: Yes Seatbelt Use: always Sunscreen Use: Yes Assistive Devices: Cane, Denture - Upper, Glasses and Walker Review of Systems Review of Systems: All systems reviewed & are unremarkable except as noted in HPI & below Physical Exam 2 Constitutional: WD/WN, vitals as above Respiratory: normal respiratory effort, lungs clear to auscultation Cardiovascular: Rate/Rhythm: regular rate and regular rhythm Gastrointestinal (Abdomen): normal bowel sounds, soft, nontender, no hepatosplenomegaly Skin: no rashes, warm and dry Results & Data Vital Signs (Past 12 Hours) Vital Signs Temp Pulse Resp BP Pulse Ox O2 Del Method 02/02/23 12:01 36.6 C 85 18 162/93 H 95 Room Air Laboratory Results 02/02/23 02/02/23 02/02/23 Range/Units 12:38 12:16 12:16 WBC (4.8-10.8) K/ul RBC (4.20-5.40) M/uL Hgb (12.0-16.0) g/dl Hct (37.0-47.0) % MCV (80.0-100.0) fL MCH (25.0-34.0) pg MCHC (32.0-36.0) g/dL RDW Std Deviation (36.4-46.3) fL RDW Coeff of Reny (11.5-14.5) % Plt Count (130-400) K/uL MPV (9.4-12.4) fL Immature Gran % (Auto) % Neut % (Auto) % Lymph % (Auto) % [place] % (Auto) % Eos % (Auto) % Baso % (Auto) % Neut # (Auto) (1.40-6.50) K/uL Lymph # (Auto) (1.20-3.40) K/uL [place] # (Auto) (0.11-0.59) K/uL Eos # (Auto) (0.00-0.50) K/uL Baso # (Auto) (0.00-0.20) K/uL Immature Gran # (Auto) (0.01-0.20) K/uL PT Pending INR Pending Sodium 142 (136-145) mmol/L Potassium 3.7 (3.5-5.1) mmol/L Chloride 106 (98-107) mmol/L Carbon Dioxide 24 (21-32) mmol/L Anion Gap 12 H (3-11) BUN 33 H (6-23) mg/dl Creatinine 0.78 (0.6-1.2) mg/dl Est Cr Clr Drug Dosing 56.0 ml/min Est GFR ( Amer) 79.2 ml/min Est GFR (Non-Af Amer) 68.4 ml/min BUN/Creatinine Ratio 42.3 H (10-20) Glucose 94 (70-99(Fasting)) mg/dl Calcium 9.3 (8.6-10.3) mg/dl Total Bilirubin 1.1 H (0.2-1.0) mg/dl AST 29 (13-39) U/L ALT 63 H (7-52) U/L Alkaline Phosphatase 225 H (34-104) U/L Total Protein 6.9 (6.0-8.3) gm/dl Albumin 4.1 (3.4-5.0) gm/dl Globulin 2.8 (2.5-4.0) gm/dl Albumin/Globulin Ratio 1.5 (0.9-2) SARS-CoV-2 RNA (DENISA) Pending 02/02/23 02/02/23 Range/Units 12:16 12:16 WBC 11.23 H 11.13 H (4.8-10.8) K/ul RBC 4.44 4.36 (4.20-5.40) M/uL Hgb 13.2 13.0 (12.0-16.0) g/dl Hct 40.9 40.1 (37.0-47.0) % MCV 92.1 92.0 (80.0-100.0) fL MCH 29.7 29.8 (25.0-34.0) pg MCHC 32.3 32.4 (32.0-36.0) g/dL RDW Std Deviation 46.6 H 47.0 H (36.4-46.3) fL RDW Coeff of Reny 13.7 13.8 (11.5-14.5) % Plt Count 403 H 387 (130-400) K/uL MPV 11.0 10.5 (9.4-12.4) fL Immature Gran % (Auto) 1.1 0.8 % Neut % (Auto) 66.3 66.8 % Lymph % (Auto) 23.2 23.0 % [place] % (Auto) 7.7 7.6 % Eos % (Auto) 0.9 0.9 % Baso % (Auto) 0.8 0.9 % Neut # (Auto) 7.45 H 7.43 H (1.40-6.50) K/uL Lymph # (Auto) 2.61 2.56 (1.20-3.40) K/uL [place] # (Auto) 0.86 H 0.85 H (0.11-0.59) K/uL Eos # (Auto) 0.10 0.10 (0.00-0.50) K/uL Baso # (Auto) 0.09 0.10 (0.00-0.20) K/uL Immature Gran # (Auto) 0.12 0.09 (0.01-0.20) K/uL PT INR Sodium (136-145) mmol/L Potassium (3.5-5.1) mmol/L Chloride (98-107) mmol/L Carbon Dioxide (21-32) mmol/L Anion Gap (3-11) BUN (6-23) mg/dl Creatinine (0.6-1.2) mg/dl Est Cr Clr Drug Dosing ml/min Est GFR ( Amer) ml/min Est GFR (Non-Af Amer) ml/min BUN/Creatinine Ratio (10-20) Glucose (70-99(Fasting)) mg/dl Calcium (8.6-10.3) mg/dl Total Bilirubin (0.2-1.0) mg/dl AST (13-39) U/L ALT (7-52) U/L Alkaline Phosphatase (34-104) U/L Total Protein (6.0-8.3) gm/dl Albumin (3.4-5.0) gm/dl Globulin (2.5-4.0) gm/dl Albumin/Globulin Ratio (0.9-2) SARS-CoV-2 RNA (DENISA)
--- NOTE | 2023-02-02 14:04 | History & Physical Report ---
Date of Service February 02, 2023 Assessment & Plan (1) Melena: (2) S/P ERCP: Plan: Possible upper GI bleed Patient is 87 y/o F with PMH HLD, GERD, Avendaño's esophagus, depression, post herpetic neuralgia presented to ER with complaint of numerous loose melanotic stools today. S/P ERCP 02/01/[address] Marshall for choledocholithiasis. In ER vitals stable. H/H: 13/40, BUN: 33, Cr: 0.78 Repeat Temp: 37.8C Blood culture pending Will start Zosyn NPO IVF Type and cross and hold PRBC. Repeat H&H. Plan to transfuse if needed PPI bolus and drip GI consult. Recommend NPO, PPI bolus and drip. Plan to take for ERCP today Blood consent was obtained from the patient as delegated by Dr. Parikh. Risks and benefits were explained. All questions were answered, and the patient was offered the opportunity to discuss with attending physician and declined (3) Barretts esophagus: Plan: On Protonix at home Currently on IV Protonix (4) Hyperlipidemia: Plan: Plan to resume simvastatin when can take po (5) Depression: Plan: On sertraline. Plan to resume when can take po DVT Prophylaxis SCDs DNR/DNI as per discussion with pt Follows with Dr Herndon for routine care Pt was seen and care coordinated with Dr Parikh. See addendum History of Present Illness Chief Complaint: Dark stools Primary Care Provider: Jessica Herndon DO Patient is 87 y/o F with PMH HLD, GERD, Avendaño's esophagus, depression, post herpetic neuralgia presented to ER with complaint of dark-colored stools today. History obtained from patient and outpatient chart review. Patient had been having intermittent epigastric pain for the past couple months and had outpatient work-up with concern for choledocholithiasis. Had ERCP, stone removal on 02/01/[address] Marshall for choledocholithiasis. Patient states after procedure was doing well but having some mild epigastric discomfort. This morning around 4 AM woke up with nausea, dry heaves and reports has had approximately 20 episodes of loose black stools. Since arrival in ER has not had any further BMs. Has not noted any fever or chills in the last 24 hours. [place] a little lightheaded with ambulating this morning. This morning had a piece of toast for breakfast. She reports took her morning medicines. Denies diaphoresis, ACKERMAN, syncope, vision changes, neck pain, CP, SOB, orthopnea, palpitations, cough, sore throat, rhinorrhea, paresthesias, extremity weakness, extremity edema, rashes, urinary symptoms. Allergies Allergy/AdvReac Type Severity Reaction Status Date / Time Sulfa (Sulfonamide Allergy Severe FACIAL Verified 02/02/23 13:37 Antibiotics) SWELLING A TEEN Home Medications Medication Instructions Recorded Confirmed Type calcium carbonate 600 mg calcium 600 mg PO QPM 04/19/18 02/02/23 History (1,500 mg) tablet (Calcium) cholecalciferol (vitamin D3) 50 4,000 unit PO QPM 04/19/18 02/02/23 History mcg (2,000 unit) tablet (Vitamin D3) omega 9-uri-aux-fish oil 1,000 mg 1 cap PO QPM 04/19/18 02/02/23 History (120 mg-180 mg) capsule (Fish Oil) vit C 250 mg-vit E 90 mg-zinc 40 1 tab PO BID 04/19/18 02/02/23 History mg-copper 1 du-gzttib-hshdiu capsule (PreserVision AREDS-2) amoxicillin 500 mg tablet 2,000 mg PO UD PRN PRE DENTAL 01/10/22 02/02/23 History pantoprazole 40 mg tablet,delayed 40 mg PO BID #180 tabs 06/20/22 02/02/23 Rx release simvastatin 20 mg tablet 20 mg PO PM #90 tabs 06/20/22 02/02/23 Rx alendronate 70 mg tablet 70 mg PO WK 02/02/23 02/02/23 History ciprofloxacin HCl 500 mg tablet 500 mg PO BID 02/02/23 02/02/23 History pregabalin 25 mg capsule 25 mg PO AMPM 02/02/23 02/02/23 History sertraline 100 mg tablet 100 mg PO QAM 02/02/23 02/02/23 History Past Med/Surg History Medical History (Updated 02/02/23 @ 15:20 by Paty Romo PA-C) Abdominal pain ONGOING FOR AWHILE...REASON FOR UPCOMING PROCEDURE NO CHANGES IN BASELINE Ankle pain, chronic chronic left ankle pain after ankle surgery/unable to walk or stand for long period of time/occasional cane 2021 better since most recent sx at [facility] [place] Anxiety Arthritis of carpometacarpal (CMC) joint of both thumbs Avendaño's esophagus Benign positional vertigo Occasional Depression Encounter for pre-operative examination GERD (gastroesophageal reflux disease) controlled History of colon polyps Hyperlipidemia Left carpal tunnel syndrome Macular degeneration q4-6 weeks eye injections Neuropathy Obesity Osteoarthritis Osteoporosis Prediabetes Right wrist sprain Temporomandibular joint disorder Hx clicking, no locking Trochanteric bursitis, left hip BOTH HIPS - INJECTION IN BOTH SEP 2021 Surgical History (Updated 02/02/23 @ 15:15 by Paty Romo PA-C) History of ankle surgery SEVERAL SX- MOST RECENT LEFT ANKLE DONE AT [facility] [place] WITHIN LAST 2 YRS X2, r ankle surgery History of back surgery lumbar discectomy History of carpal tunnel release RIGHT History of cholecystectomy History of colonoscopy History of esophagogastroduodenoscopy (EGD) History of foot surgery bilateral History of incisional hernia repair (10/25/21) Open Incisional Hernia Repair(Not Applicable) - Christoph Villar, History of repair of rotator cuff B/L History of toe surgery RIGHT TOE AMPUTATION (2/2 OSTEOMYELITIS)= 12/12/17= MAC SEDATION AT [facility] Left third toe amputation (06/15/21): MAC at [facility] [place]. No issues noted per post-op anesthesia progress note. History of tooth extraction History of total abdominal hysterectomy and bilateral salpingo-oophorectomy History of total left knee replacement History of total right knee replacement History of total shoulder replacement left and right total reverse shoulder Previous section x2 S/P ERCP S/P hammer toe correction S/P trigger finger release Family History Mother Myocardial infarction Hypertension Father History of lung cancer Denies family history of Colon cancer Ovarian cancer Prostate cancer Hearing loss No family history of adverse response to anesthesia No family history of bleeding disorder Heart disease Allergies Breast cancer Stroke Asthma Social History Smoking Status: Never smoker Second Hand Exposure: No; Do You Dip or Chew Tobacco: No; Hx Alcohol Use: No Hx Substance Use: No Preferred Language: Spanish Communication Ability: Effective Visual Impairment: Limited Hearing Ability: Normal Manufacturing Production 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 Required: No Beliefs That Will Affect Care: None marital status: Current Living Situation: Spouse current occupational status: retired How many Children do You have: 4 Feels Safe at Home: Yes Childhood Exposure to Second-Hand Smoke: Yes during the past year weight has: decreased > 10 lbs Dental Care, Regularly: Yes Seatbelt Use: always Sunscreen Use: Yes Assistive Devices: Cane, Denture - Upper, Glasses and Walker Review of Systems Review of Systems: All systems reviewed & are unremarkable except as noted in HPI & below Physical Exam Physical Exam: General: no distress, WDWN, elderly female Head: normocephalic, atraumatic Eyes: conjunctiva non-injected, anicteric ENT: normal inspection external ears, nose, mucous membranes moist Neck: supple, trachea midline Lungs: clear, no respiratory distress, no wheezing/rhonchi/rales CV: RRR, no murmur, no pretibial edema Abd: normal BS, soft, +tenderness epigastric region Ext: no cyanosis, no calf tenderness Neuro: A&O x 3, no focal deficits noted, normal affect Skin: warm, dry Results & Data Results & Data Vital Signs (Past 12 Hours) Vital Signs Temp Pulse Resp BP Pulse Ox O2 Del Method 02/02/23 12:01 36.6 C 85 18 162/93 H 95 Room Air Laboratory Results Short CBC 02/02/23 02/02/23 Range/Units 12:16 12:16 WBC 11.13 H 11.23 H (4.8-10.8) K/ul Hgb 13.0 13.2 (12.0-16.0) g/dl Hct 40.1 40.9 (37.0-47.0) % Plt Count 387 403 H (130-400) K/uL BMP 02/02/23 12:16 Sodium 142 Potassium 3.7 Chloride 106 Carbon Dioxide 24 BUN 33 H Creatinine 0.78 Glucose 94 Calcium 9.3 Liver Function 02/02/23 Range/Units 12:16 Total Bilirubin 1.1 H (0.2-1.0) mg/dl AST 29 (13-39) U/L ALT 63 H (7-52) U/L Alkaline Phosphatase 225 H (34-104) U/L Albumin 4.1 (3.4-5.0) gm/dl ECG Additional Comments: Sinus rhythm, rate 83, Q waves anterior leads per my interpretation. Reviewed prior EKG from 09/05/2021 in which sinus rhythm, PVCs, Q waves anterior leads were present Supervising Physician Co-Signing Physician Notes I have seen and discussed the case with the collaborating ANTONIO. I agree with the above H&P. I have reviewed and confirmed the patients medical history, the findings on physical examination, and the patients diagnosis and [facility] plan [facility] and agree with the information documented. In short, Ms. Ge is an 87 year old woman with history of post-herpetic neuralgia, osteoporosis, GERD/hiatla hernia, HLD who is admitted for concerns of UGIB s/p ERCP on 02/01 which involved CBD stone removal and sphincterotomy. Patient noted increased quanitiy of stool that was black/tarry in nature prompting presentation to [facility] ED. Upon arrival, hgn stable, LFTS elvated (down from 01/29 OP labs), mild leukocytosis 11. HDS, however, noted to be febrile to 37.8. Plan IV protonix, transfuse <7, Zosyn IV--GI on consult, plan to undergo ERCP to assess for bleeding. Rest of plan as above.
[2023-02-02] MEDS ORDERED: PANTOPRAZOLE BOLUS/DRIP IV STA (14:32)
[2023-02-02] MEDS ORDERED: LACTATED RINGER'S 1,000 ML IV SCH (15:00)
[2023-02-02] MEDS ORDERED: PANTOprazole 80 MG in DEXTROSE 5% 100 ML IV ONE ×2 (15:00→19:00)
[2023-02-02] MEDS ORDERED: ATROPINE SULFATE 0.1 MG/ML 10ML SYR IV PRN (15:01)
[2023-02-02] MEDS ORDERED: ONDANSETRON INJ 2 MG/ML 2 ML VIAL IV PRN ×2 (15:01→17:17)
[2023-02-02] MEDS ORDERED: fentaNYL citrate PF 100 MCG/2 ML VIAL IV PRN (15:01)
[2023-02-02] MEDS ORDERED: ePHEDrine sulfate 50 MG/ML AMP IV PRN (15:01)
--- NOTE | 2023-02-02 15:03 | Anesthesiology Consultation ---
Date of Service February 02, 2023 Assessment & Plan Chart Review Chart Review: Acceptable Risk for Surgery and Patient NOT seen in Pre Admission Testing Consults Requested none ASA ASA3 Proposed Anesthesia Anesthesia Type: General Risk / Benefits Reviewed With: PT / POA / Parent / Guardian, Accepts Plan and Informed Consent Obtained History Surgery Operation Date: 02/02/23 14:50 Proposed Procedures p Endoscopic Retrograde Cholangiopancreatogram - Linda Marshall, DO Height/Weight Height: 5 ft 5 in Weight: 89 kg Allergies Allergy/AdvReac Type Severity Reaction Status Date / Time Sulfa (Sulfonamide Allergy Severe FACIAL Verified 02/02/23 13:37 Antibiotics) SWELLING A TEEN Medications Home Medications Medication Instructions Recorded Confirmed Last Taken calcium carbonate 600 mg calcium 600 mg PO QPM 04/19/18 02/02/23 01/31/23 (1,500 mg) tablet (Calcium) cholecalciferol (vitamin D3) 50 4,000 unit PO QPM 04/19/18 02/02/23 01/31/23 mcg (2,000 unit) tablet (Vitamin D3) omega 7-jmj-ips-fish oil 1,000 mg 1 cap PO QPM 04/19/18 02/02/23 01/31/23 (120 mg-180 mg) capsule (Fish Oil) vit C 250 mg-vit E 90 mg-zinc 40 1 tab PO BID 04/19/18 02/02/23 02/02/23 mg-copper 1 ao-qgpsep-nqymzs capsule (PreserVision AREDS-2) amoxicillin 500 mg tablet 2,000 mg PO UD PRN PRE DENTAL 01/10/22 02/02/23 Unknown pantoprazole 40 mg tablet,delayed 40 mg PO BID #180 tabs 06/20/22 02/02/23 02/02/23 release simvastatin 20 mg tablet 20 mg PO PM #90 tabs 06/20/22 02/02/23 01/31/23 alendronate 70 mg tablet 70 mg PO WK 02/02/23 02/02/23 Unknown ciprofloxacin HCl 500 mg tablet 500 mg PO BID 02/02/23 02/02/23 02/02/23 pregabalin 25 mg capsule 25 mg PO AMPM 02/02/23 02/02/23 02/02/23 sertraline 100 mg tablet 100 mg PO QAM 02/02/23 02/02/23 02/02/23 Active Medications Generic Name Dose Route Start Last Admin Trade Name Dario PRN Reason Stop Dose Admin Lactated Ringer's 1,000 mls @ 15 mls/hr 02/02/23 15:00 02/02/23 14:53 Lr IV 03/04/23 14:59 15 mls/hr .Q24H JACQUI Administration NPO Date Last Intake of Fluids: 02/02/23 Time Last Intake of Fluids: 12:00 Last Intake of Fluids Comment: sip of water Date Last Intake of Solids: 02/02/23 Time Last Intake of Solids: 07:00 Past Medical History Medical History Abdominal pain Ankle pain, chronic Anxiety Arthritis of carpometacarpal (CMC) joint of both thumbs Avendaño's esophagus Benign positional vertigo Depression Encounter for pre-operative examination GERD (gastroesophageal reflux disease) History of colon polyps Hyperlipidemia Left carpal tunnel syndrome Macular degeneration Obesity Osteoarthritis Osteoporosis Prediabetes Right wrist sprain Temporomandibular joint disorder Trochanteric bursitis, left hip Past Family History Family History Mother Myocardial infarction Hypertension Father History of lung cancer Denies family history of Colon cancer Ovarian cancer Prostate cancer Hearing loss No family history of adverse response to anesthesia No family history of bleeding disorder Heart disease Allergies Breast cancer Stroke Asthma Past Surgical History Surgical History History of ankle surgery History of back surgery History of carpal tunnel release History of cholecystectomy History of colonoscopy History of esophagogastroduodenoscopy (EGD) History of foot surgery History of incisional hernia repair (10/25/21) History of repair of rotator cuff History of toe surgery History of tooth extraction History of total abdominal hysterectomy and bilateral salpingo-oophorectomy History of total left knee replacement History of total right knee replacement History of total shoulder replacement Previous section S/P hammer toe correction S/P trigger finger release Past Anesthesia History No Hx of Anesthesia Complications and No Family Hx of Anesthesia Complications Social History Smoking Status: Never smoker Do You Dip or Chew Tobacco: No Hx Alcohol Use: No Hx Substance Use: No substance use type: does not use Review of Systems ROS Unobtainable: All systems reviewed & are unremarkable except as noted in HPI & below Physical Exam Vital Signs Last Vital Signs Temp 37.8 C H 02/02/23 14:45 Pulse 75 02/02/23 14:45 Resp 20 02/02/23 14:45 BP 165/86 H 02/02/23 14:45 Pulse Ox 97 02/02/23 14:45 O2 Del Method Room Air 02/02/23 14:45 ENMT Mouth: no TMJ abnormality Thyromental Distance: > or= 3.5 Finger Breadths Mallampati Class: II Neck normal visual inspection and trachea midline; neck extension not limited Respiratory normal respiratory effort Auscultation: lungs clear to auscultation bilaterally Cardiovascular Rate/Rhythm: regular rate and regular rhythm Heart Sounds: no murmur Musculoskeletal Spine: normal cervical ROM Extremities: full ROM of extremities Neurologic moves all extremities Psychiatric Orientation: alert and oriented x 3 Testing Laboratory Results 02/02/23 12:16 02/02/23 12:16 PT 11.6 Seconds (9.0-12.0) 02/02/23 12:16 INR 1.1 (0.9-1.1) 02/02/23 12:16 Electrocardiogram Date: 09/05/21 Findings: no SB @ Sinus rhythm with occasional Premature ventricular complexes Poor R wave progression, consider anterior NM vs. lead placement vs. LVH Abnormal ECG When compared with ECG of 11-JUN-2019 11:19, Premature ventricular complexes are now Present Anterior infarct is now Present
[2023-02-02] MEDS ORDERED: GLYCOPYRROLATE 0.2 MG/ML VIAL ONE (15:20)
[2023-02-02] MEDS ORDERED: DEXAMETHASONE SOD INJ 4 MG/ML VIAL ONE (15:20)
[2023-02-02] MEDS ORDERED: fentaNYL citrate PF 100 MCG/2 ML VIAL ONE (15:20)
[2023-02-02] MEDS ORDERED: ONDANSETRON INJ 2 MG/ML 2 ML VIAL ONE (15:20)
[2023-02-02] MEDS ORDERED: LIDOCAINE 2% 2 ML VIAL/AMP(20MG/ML) INFIL ONE (15:20)
[2023-02-02] MEDS ORDERED: PROPOFOL IV EMULSION 10 MG/ML 20 ML VIAL IV ONE (15:20)
[2023-02-02] MEDS ORDERED: LABETALOL HCL IV 5 MG/ML 20ML IV ONE (16:02)
--- NOTE | 2023-02-02 16:04 | Post Operative Brief Note ---
Immediate Post Op Note v1 Date of Surgery February 02, 2023 Pre & Post Diagnosis Operation Date: 02/02/23 14:50 Pre-Op Diagnosis: Melena Post-Op Diagnosis: post spincterotomy bleed. I identified the patient and participated in the time-out.: Yes Procedure Operation Date: 02/02/23 14:50 Actual Procedures p Endoscopic Retrograde Cholangiopancreato with hemostasis and stent placement. - Linda Marshall DO Surgeon Linda Marshall DO Detective And Intelligence Analyst None Estimated Blood Loss 0 Findings Consistent with Post-Op Diagnosis
--- NOTE | 2023-02-02 16:06 | Communication Note ---
Date of Service: February 02, 2023 The patient underwent ERCP today for suspected post sphincterotomy bleeding. Patient was found to have evidence of a recent bleed from her cingulotomy site although no active bleeding was seen during today's exam. A covered metal stent was placed to tamponade the sphincterotomy site, the site was then treated with thermal therapy using multipolar cautery. Recommendations Clear liquid diet Protonix drip overnight Cipro 400 mg twice daily for total of 10 days Clear liquid diet today Patient without a drop in hemoglobin and hematocrit tomorrow advance to a regular diet If patient without evidence of rebleeding may discharge on Sunday With use of nonsteroidals for 1 week
--- NOTE | 2023-02-02 16:18 | Fluoroscopy Report ---
FL ERCP biliary ductal CLINICAL HISTORY: ERCP COMPARISON STUDY: None FLUOROSCOPY TIME: 31 seconds FLUOROSCOPY IMAGES: T2 EXPOSURE DOSE: 8.94 mGy FINDINGS: Endoscope within the duodenum. Cholecystectomy clips. Cannulation of the common bile duct w ith retrograde injection of contrast. The common bile duct is not well-opacified. Subsequent images d emonstrate placement of a common bile duct stent which appears to be in satisfactory positioning. IMPRESSION: Fluoroscopic assistance as above. ACT 112: Negative or not required by law. Electronically signed by: Zhang Guzman M.D. 02/02/2023 4:17 PM
--- NOTE | 2023-02-02 16:24 | GI REPORT ---
Patient Name: Jasmin Ge Procedure Date: 02/02/2023 3:44 PM Date of : 1935 Admit Type: Outpatient Age: 87 Gender: Female Attending MD: Linda Marshall DO, Procedure: ERCP Providers: Linda Marshall DO Referring MD: Haley Parikh Md Indications: Suspected post-sphincterotomy bleeding Medicines: General Anesthesia Complications: No immediate complications. Estimated blood loss: Minimal. Estimated Blood Loss: Estimated blood loss was minimal. Procedure: Pre-Anesthesia Assessment: - Prior to the procedure, a History and Physical was performed, and patient medications, allergies and sensitivities were reviewed. The patient's tolerance of previous anesthesia was reviewed. - The risks and benefits of the procedure and the sedation options and risks were discussed with the patient. All questions were answered and informed consent was obtained. - Patient identification and proposed procedure were verified prior to the procedure by the physician, the nurse and the belt back operator. The procedure was verified in the procedure room. - Pre-procedure physical examination revealed no contraindications to sedation. - ASA Grade Assessment: III - A patient with severe systemic disease. - After reviewing the risks and benefits, the patient was deemed in satisfactory condition to undergo the procedure. - The anesthesia plan was to use general anesthesia. - Immediately prior to administration of medications, the patient was re-assessed for adequacy to receive sedatives. - The heart rate, respiratory rate, oxygen saturations, blood pressure, adequacy of pulmonary ventilation, and response to care were monitored throughout the procedure. - The physical status of the patient was re-assessed after the procedure. After obtaining informed consent, the scope was passed under direct vision. Throughout the procedure, the patient's blood pressure, pulse, and oxygen saturations were monitored continuously. The Duodenoscope was introduced through the mouth, and advanced to the duodenum and used to inject contrast into the bile duct. The ERCP was accomplished without difficulty. The patient tolerated the procedure well. Findings: A plate maker film of the abdomen was obtained. Surgical clips, consistent with a previous cholecystectomy, were seen in the area of the right upper quadrant of the abdomen. The esophagus was successfully intubated under direct vision without detailed examination of the pharynx, larynx, and associated structures, and upper GI tract. The upper GI tract was grossly normal. A biliary sphincterotomy had been performed. The sphincterotomy appeared open. Clotted blood was noted from the major papilla at the apex and lateral portion consistent with recent bleeding. The area was successfully injected with 3 mL of 1:10,000 solution of epinephrine through the ERCP scope for drug delivery with a Crammer Catheter. The bile duct was deeply cannulated with the short-nosed traction sphincterotome and 0.035 in Acrobat 2 guidewire. Contrast was injected. I personally interpreted the bile duct images. Contrast extended to the hepatic ducts. The main bile duct was moderately dilated. The largest diameter was 14 mm. One 10 Fr by 8 cm covered metal stent was placed 8 cm into the common bile duct ([place] Viabil, [id number], [id number]) to provide tamonade to the sphincterotomy site. Bile flowed through the stent. The stent was in good position. Coagulation for hemostasis in the sphincterotomy site using a 7 Fr multipolar probe through the ERCP scope was successful. The endoscope was withdrawn from the patient. Impression: - Recent bleeding from a post-sphincterotmy site - Hemostasis provided with injection therapy of ephinephrine, covered metal stent placement and multipolar cautery. Recommendation: - Avoid aspirin and nonsteroidal anti-inflammatory medicines for 1 week. - Clear liquid diet today. - Give Protonix (pantoprazole): 8 mg/hr IV by continuous infusion for 2 days then 40 mg per day for 1 month. - Use broad spectrum antibiotics for 10 days. - Repeat ERCP in 6 weeks to remove stent. Linda Marsahll D.O. Linda Marshall, 02/02/2023 4:24:15 PM This report has been signed electronically. Note Initiated On: 02/02/2023 3:44 PM Number of Addenda: 0 I attest to the content of the Intraoperative Record and orders documented therein, exceptions below {[id number]}
--- NOTE | 2023-02-02 17:05 | Anesthesiology Progress Note ---
Date of Service February 02, 2023 Anesthesia Post Procedure Vital Signs Vital Signs: Temp Pulse Pulse Pulse Pulse Resp BP 02/02/23 16:45 37 C 70 15 02/02/23 16:35 69 18 02/02/23 16:25 68 14 02/02/23 16:15 66 13 02/02/23 16:08 36.4 C L 71 14 02/02/23 14:45 37.8 C H 75 20 02/02/23 14:37 02/02/23 13:56 73 18 02/02/23 12:01 36.6 C 85 18 162/93 H BP BP Pulse Ox O2 Del Method O2 Flow Rate 02/02/23 16:45 162/63 H 93 Room Air 02/02/23 16:35 156/68 H 94 Room Air 02/02/23 16:25 162/78 H 95 Oxymask 2 02/02/23 16:15 160/78 H 99 Oxymask 8 02/02/23 16:08 161/70 H 98 Oxymask 8 02/02/23 14:45 165/86 H 97 Room Air 02/02/23 14:37 Room Air 02/02/23 13:56 116/63 96 Room Air 02/02/23 12:01 95 Room Air Transfer of Care Handoff Completed per policy Notes Mental Status: alert / awake / arousable Patient Amnestic to Procedure: Yes Nausea / Vomiting: adequately controlled Pain: adequately controlled Airway Patency, RR, SpO2: stable & adequate BP & HR: stable & adequate Hydration State: stable & adequate Anesthetic Complications: no major complications apparent
[2023-02-02] MEDS ORDERED: MoRPHine SULFATE 2 MG/ML CARP IV PRN ×2 (17:17→17:53)
[2023-02-02] MEDS: CIPROFLOXACIN / D5W 400 MG/200 ML BAG IV SCH (17:17)
[2023-02-02] MEDS ORDERED: SODIUM CHLORIDE 0.9% 1,000 ML IV SCH (17:17)
[2023-02-02] MEDS ORDERED: ACETAMINOPHEN 1,000 MG/100 ML VIAL IV PRN (17:17)
[2023-02-02] MEDS ORDERED: SODIUM CHLORIDE 0.9% 250 ML IV PRN (17:17)
[2023-02-02] MEDS ORDERED: PIPER/TAZO 4.5g in D5W MINI-B 100 ML IV ONE (17:45)
[2023-02-02] MEDS ORDERED: oxyCODONE HCL IR 5 MG TAB (IMMEDIATE RELEASE) PO PRN (17:53)
[2023-02-02] MEDS ORDERED: ACETAMINOPHEN 325 MG TAB PO PRN (17:53)
--- NOTE | 2023-02-02 18:07 | Emergency Department Note ---
History of Present Illness General Chief complaint: Rectal Bleed Stated complaint: SURG YESTERDAY,DOC REF,HEMATURIA Time Seen by Provider: 02/02/23 13:15 History of Present Illness Provider complaint: Dark stools abdominal pain 87-year-old female presents emergency department for dark stools and abdominal pain. Patient reports that her symptoms began yesterday after she had a procedure done by Dr. Marshall at [facility]. She reports no fevers. Patient states that she contacted Dr. Marshall's office who referred her to the emergency department. Home Medications Medication Instructions Recorded Confirmed Type calcium carbonate 600 mg calcium 600 mg PO QPM 04/19/18 02/02/23 History (1,500 mg) tablet (Calcium) cholecalciferol (vitamin D3) 50 4,000 unit PO QPM 04/19/18 02/02/23 History mcg (2,000 unit) tablet (Vitamin D3) omega 8-hmq-ufr-fish oil 1,000 mg 1 cap PO QPM 04/19/18 02/02/23 History (120 mg-180 mg) capsule (Fish Oil) vit C 250 mg-vit E 90 mg-zinc 40 1 tab PO BID 04/19/18 02/02/23 History mg-copper 1 gu-qwadyx-jlalhb capsule (PreserVision AREDS-2) amoxicillin 500 mg tablet 2,000 mg PO UD PRN PRE DENTAL 01/10/22 02/02/23 History pantoprazole 40 mg tablet,delayed 40 mg PO BID #180 tabs 06/20/22 02/02/23 Rx release simvastatin 20 mg tablet 20 mg PO PM #90 tabs 06/20/22 02/02/23 Rx alendronate 70 mg tablet 70 mg PO WK 02/02/23 02/02/23 History ciprofloxacin HCl 500 mg tablet 500 mg PO BID 02/02/23 02/02/23 History pregabalin 25 mg capsule 25 mg PO AMPM 02/02/23 02/02/23 History sertraline 100 mg tablet 100 mg PO QAM 02/02/23 02/02/23 History Allergies Allergy/AdvReac Type Severity Reaction Status Date / Time Sulfa (Sulfonamide Allergy Severe FACIAL Verified 02/02/23 13:37 Antibiotics) SWELLING A TEEN Past Med/Surg History Medical History Abdominal pain ONGOING FOR AWHILE...REASON FOR UPCOMING PROCEDURE NO CHANGES IN BASELINE Ankle pain, chronic chronic left ankle pain after ankle surgery/unable to walk or stand for long period of time/occasional cane 2021 better since most recent sx at [facility] Anxiety Arthritis of carpometacarpal (CMC) joint of both thumbs Avendaño's esophagus Benign positional vertigo Occasional Depression Encounter for pre-operative examination GERD (gastroesophageal reflux disease) controlled History of colon polyps Hyperlipidemia Left carpal tunnel syndrome Macular degeneration q4-6 weeks eye injections Neuropathy Obesity Osteoarthritis Osteoporosis Prediabetes Right wrist sprain Temporomandibular joint disorder Hx clicking, no locking Trochanteric bursitis, left hip BOTH HIPS - INJECTION IN BOTH SEP 2021 Surgical History History of ankle surgery SEVERAL SX- MOST RECENT LEFT ANKLE DONE AT [facility] WITHIN LAST 2 YRS X2, r ankle surgery History of back surgery lumbar discectomy History of carpal tunnel release RIGHT History of cholecystectomy History of colonoscopy History of esophagogastroduodenoscopy (EGD) History of foot surgery bilateral History of incisional hernia repair (10/25/21) Open Incisional Hernia Repair(Not Applicable) - Christoph Villar, History of repair of rotator cuff B/L History of toe surgery RIGHT TOE AMPUTATION (/2 OSTEOMYELITIS)= 12/12/17= MAC SEDATION AT [facility] 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 No issues noted per post-op anesthesia progress note. History of tooth extraction History of total abdominal hysterectomy and bilateral salpingo-oophorectomy History of total left knee replacement History of total right knee replacement History of total shoulder replacement left and right total reverse shoulder Previous section x2 S/P ERCP S/P hammer toe correction S/P trigger finger release Family History Mother Myocardial infarction Hypertension Father History of lung cancer Denies family history of Colon cancer Ovarian cancer Prostate cancer Hearing loss No family history of adverse response to anesthesia No family history of bleeding disorder Heart disease Allergies Breast cancer Stroke Asthma Social History Smoking Status: Never smoker Second Hand Exposure: No; Do You Dip or Chew Tobacco: No; Hx Alcohol Use: No Hx Substance Use: No Preferred Language: [place] Communication Ability: Effective Visual Impairment: Limited Hearing Ability: Normal Armature Bander Required: No Beliefs That Will Affect Care: None marital status: Current Living Situation: Spouse current occupational status: retired How many Children do You have: 4 Other Information That Helps Us Care for You: No Feels Safe at Home: Yes Safety Concerns: Feels Safe At This Time Childhood Exposure to Second-Hand Smoke: Yes during the past year weight has: decreased > 10 lbs Dental Care, Regularly: Yes Seatbelt Use: always Sunscreen Use: Yes Assistive Devices: Cane Physical Exam Vital Signs Vital Signs - 24 hr 02/02/23 12:01 02/02/23 13:56 Temperature 36.6 C Temperature Source Temporal Artery Scan Pulse Rate 85 Pulse Rate [Bilateral] 73 Respiratory Rate 18 18 Respiratory Effort / Characteristics Non-Labored Spontaneous Respiratory Depth Normal Blood Pressure 162/93 H Blood Pressure [Right Arm] 116/63 Blood Pressure Mean 116 Blood Pressure Mean [Right Arm] 80 Pulse Oximetry 95 96 Oxygen Delivery Method Room Air Room Air Sepsis Recent Fever Within 48 Hours No Sepsis New/Unexplained Change in Mental Status No Sepsis Action Taken by Nursing No Action Required Physical Exam GENERAL: oriented to person, place, and time. appears well-developed and well- nourished. HENT: Exam performed. - Head: Normocephalic and atraumatic. EYES: Conjunctivae and EOM are normal. Right eye exhibits no discharge. Left eye exhibits no discharge. No scleral icterus. NECK: Normal range of motion. Neck supple. No JVD present. CV: Normal rate, regular rhythm, normal heart sounds and intact distal pulses. There is no peripheral edema. Palpable radial pulses bue. PULM/CHEST: Effort normal and breath sounds normal. No respiratory distress. No stridor. no wheezes. no rales. ABD: The abdomen is soft. There is no tenderness. NEURO: Motor and sensation grossly intact. SKIN: Skin is warm and dry. He is not diaphoretic. PSYCH: normal mood and affect. Behavior is normal. Judgment and thought content normal. Course Course 1315: The patient was evaluated in room Triage 3. A complete history and physical exam was performed Administered Medications Lactated Ringer's (Lr) 1,000 mls @ 15 mls/hr IV .Q24H JACQUI Stop: 02/02/23 23:01 Last Infusion: 02/02/23 15:29 Dose: 0 mls/hr Documented By: Admin: 02/02/23 14:53 Dose: 15 mls/hr Documented By: STEFFI Ciprofloxacin (Cipro / D5w) 400 mg in 200 mls @ 100 mls/hr IV Q12H JACQUI; Protocol Stop: 02/12/23 16:14 Last Admin: 02/02/23 17:17 Dose: 100 mls/hr Documented By: FACUNDO Sodium Chloride (Nss) 1,000 mls @ 80 mls/hr IV .[id number] JACQUI Stop: 02/03/23 05:46 Last Admin: 02/02/23 17:39 Dose: 80 mls/hr Documented By: FACUNDO Discontinued Medications Epinephrine HCl (Epinephrine 1.5" Ndl 0.1 Mg/Ml Syr) Confirm Administered Dose 1 mg IV .STK-MED ONE Stop: 02/02/23 16:18 Last Admin: 02/02/23 17:18 Dose: Not Given Documented By: FACUNDO Piperacillin Sod/Tazobactam (Sod 4.5 gm/ Dextrose) 100 mls @ 200 mls/hr IV NOW ONE; Protocol Stop: 02/02/23 18:14 Last Admin: 02/02/23 18:02 Dose: Not Given Documented By: FACUNDO Medical Decision Making Laboratory Data Attestation: I reviewed the patient's lab results. 02/02/23 12:16 02/02/23 12:16 Lab Results 02/02/23 02/02/23 02/02/23 Range/Units 12:16 12:16 12:16 WBC 11.13 H 11.23 H (4.8-10.8) K/ul RBC 4.36 4.44 (4.20-5.40) M/uL Hgb 13.0 13.2 (12.0-16.0) g/dl Hct 40.1 40.9 (37.0-47.0) % MCV 92.0 92.1 (80.0-100.0) fL MCH 29.8 29.7 (25.0-34.0) pg MCHC 32.4 32.3 (32.0-36.0) g/dL RDW Std Deviation 47.0 H 46.6 H (36.4-46.3) fL RDW Coeff of Reny 13.8 13.7 (11.5-14.5) % Plt Count 387 403 H (130-400) K/uL MPV 10.5 11.0 (9.4-12.4) fL Immature Gran % (Auto) 0.8 1.1 % Neut % (Auto) 66.8 66.3 % Lymph % (Auto) 23.0 23.2 % Moffat % (Auto) 7.6 7.7 % Eos % (Auto) 0.9 0.9 % Baso % (Auto) 0.9 0.8 % Neut # (Auto) 7.43 H 7.45 H (1.40-6.50) K/uL Lymph # (Auto) 2.56 2.61 (1.20-3.40) K/uL Moffat # (Auto) 0.85 H 0.86 H (0.11-0.59) K/uL Eos # (Auto) 0.10 0.10 (0.00-0.50) K/uL Baso # (Auto) 0.10 0.09 (0.00-0.20) K/uL Immature Gran # (Auto) 0.09 0.12 (0.01-0.20) K/uL PT 11.6 (9.0-12.0) Seconds INR 1.1 (0.9-1.1) Sodium (136-145) mmol/L Potassium (3.5-5.1) mmol/L Chloride (98-107) mmol/L Carbon Dioxide (21-32) mmol/L Anion Gap (3-11) BUN (6-23) mg/dl Creatinine (0.6-1.2) mg/dl Est Cr Clr Drug Dosing ml/min Est GFR ( Amer) ml/min Est GFR (Non-Af Amer) ml/min BUN/Creatinine Ratio (10-20) Glucose (70-99(Fasting)) mg/dl Calcium (8.6-10.3) mg/dl Total Bilirubin (0.2-1.0) mg/dl AST (13-39) U/L ALT (7-52) U/L Alkaline Phosphatase (34-104) U/L Total Protein (6.0-8.3) gm/dl Albumin (3.4-5.0) gm/dl Globulin (2.5-4.0) gm/dl Albumin/Globulin Ratio (0.9-2) Blood Type Antibody Screen Crossmatch 02/02/23 02/02/23 Range/Units 12:16 12:17 WBC (4.8-10.8) K/ul RBC (4.20-5.40) M/uL Hgb (12.0-16.0) g/dl Hct (37.0-47.0) % MCV (80.0-100.0) fL MCH (25.0-34.0) pg MCHC (32.0-36.0) g/dL RDW Std Deviation (36.4-46.3) fL RDW Coeff of Reny (11.5-14.5) % Plt Count (130-400) K/uL MPV (9.4-12.4) fL Immature Gran % (Auto) % Neut % (Auto) % Lymph % (Auto) % Moffat % (Auto) % Eos % (Auto) % Baso % (Auto) % Neut # (Auto) (1.40-6.50) K/uL Lymph # (Auto) (1.20-3.40) K/uL Moffat # (Auto) (0.11-0.59) K/uL Eos # (Auto) (0.00-0.50) K/uL Baso # (Auto) (0.00-0.20) K/uL Immature Gran # (Auto) (0.01-0.20) K/uL PT (9.0-12.0) Seconds INR (0.9-1.1) Sodium 142 (136-145) mmol/L Potassium 3.7 (3.5-5.1) mmol/L Chloride 106 (98-107) mmol/L Carbon Dioxide 24 (21-32) mmol/L Anion Gap 12 H (3-11) BUN 33 H (6-23) mg/dl Creatinine 0.78 (0.6-1.2) mg/dl Est Cr Clr Drug Dosing 56.0 ml/min Est GFR ( Amer) 79.2 ml/min Est GFR (Non-Af Amer) 68.4 ml/min BUN/Creatinine Ratio 42.3 H (10-20) Glucose 94 (70-99(Fasting)) mg/dl Calcium 9.3 (8.6-10.3) mg/dl Total Bilirubin 1.1 H (0.2-1.0) mg/dl AST 29 (13-39) U/L ALT 63 H (7-52) U/L Alkaline Phosphatase 225 H (34-104) U/L Total Protein 6.9 (6.0-8.3) gm/dl Albumin 4.1 (3.4-5.0) gm/dl Globulin 2.8 (2.5-4.0) gm/dl Albumin/Globulin Ratio 1.5 (0.9-2) Blood Type O Positive Antibody Screen NEGATIVE Crossmatch See Detail MDM Narrative Spoke with Yolanda Clay from GI who states that Dr. Marshall wants the patient to be admitted and he will perform an ERCP on the patient today. She recommends admission to the hospitalist team. Impression & Plan Abdominal pain Discharge Plan Visit Data Chief Complaint: Rectal Bleed Stated Complaint: SURG YESTERDAY,DOC REF,HEMATURIA ED Provider: Demarcus Tejada Discharge Problem: Abdominal pain Patient Disposition: Admitted As Inpatient Discharge Instructions Interventions: ED Discharge Assessment Last Done: 02/02/23 14:37
[2023-02-02] MEDS ORDERED: FIRST - Mouthwash BLM 5 ML UDP PO ONE (18:17)
[2023-02-02 19:03] LABS: Hematocrit (blood only) 35.5 % (37.0-47.0); Hemoglobin 11.7 g/dl (12.0-16.0)
[2023-02-02] MEDS: PANTOprazole 40 MG in DEXTROSE 5% MINI-B 100 ML IV SCH (20:03)
[2023-02-02] MEDS: PREGABALIN 25 MG CAP PO SCH (20:03)
[2023-02-02] MEDS: CHLORASEPTIC 1.4% SOLN 180 ML BTL MT PRN (21:54)
[2023-02-02] MEDS ORDERED: PIPERACILLIN/TAZOBACTAM 4.5 GM in DEXTROSE 5% MINI-B 100 ML IV SCH (23:00)
[2023-02-03] MEDS: PANTOprazole 40 MG in DEXTROSE 5% MINI-B 100 ML IV SCH ×5 (00:43→23:57)
[2023-02-03 01:24] LABS: Hematocrit (blood only) 32.2 % (37.0-47.0); Hemoglobin 10.7 g/dl (12.0-16.0)
[2023-02-03] MEDS: CIPROFLOXACIN / D5W 400 MG/200 ML BAG IV SCH ×2 (05:05→18:07)
[2023-02-03] MEDS: CHLORASEPTIC 1.4% SOLN 180 ML BTL MT PRN (05:08)
[2023-02-03 06:35] LABS: Basophils # (auto) 0.05 K/uL (0.00-0.20); Basophils % (auto) 0.5 %; Eosinophils # (auto) 0.02 K/uL (0.00-0.50); Eosinophils % (auto) 0.2 %; Hematocrit (blood only) 30.9 % (37.0-47.0); Hemoglobin 10.4 g/dl (12.0-16.0); Immature Granulocytes # (auto) 0.07 K/uL (0.01-0.20); Immature Granulocytes % (auto) 0.8 %; Lymphocytes # (auto) 1.94 K/uL (1.20-3.40); Lymphocytes % (auto) 21.2 %; Mean Corpuscular Hemoglobin 30.6 pg (25.0-34.0); Mean Corpuscular Hgb Conc 33.7 g/dL (32.0-36.0); Mean Corpuscular Volume 90.9 fL (80.0-100.0); Mean Platelet Volume 10.8 fL (9.4-12.4); Monocytes # (auto) 0.71 K/uL (0.11-0.59); Monocytes % (auto) 7.8 %; Neutrophils # (auto) 6.37 K/uL (1.40-6.50); Neutrophils % (auto) 69.5 %; Platelet Count 342 K/uL (130-400); RDW Coefficient of Variation 14.2 % (11.5-14.5); White Blood Count 9.16 K/ul (4.8-10.8)
[2023-02-03 06:56] LABS: Albumin Globulin Ratio 1.5 (0.9-2); Albumin Level 3.2 gm/dl (3.4-5.0); Bilirubin,Total 0.9 mg/dl (0.2-1.0); Calcium 8.2 mg/dl (8.6-10.3); Est GFR (African American) 88.8 ml/min; Est GFR (Non-African American) 76.6 ml/min; Globulin 2.1 gm/dl (2.5-4.0); Potassium 3.3 mmol/L (3.5-5.1); Total Protein 5.3 gm/dl (6.0-8.3)
--- NOTE | 2023-02-03 09:00 | Gastroenterology Progress Note ---
Date of Service February 03, 2023 Assessment & Plan (1) Melena: Plan: Seems to have settled down although with fall in hemoglobin would probably watch over night. If no signs of bleeding she could possibly eat later in the day. Admission and Anticipated Discharge Date Admission Date: February 02, 2023 Subjective Feeling well, wants to go home. Hgb down to 10.4 from 11.7. She has not had a bowel movement Physical Exam Constitutional: WD/WN, vitals as above Results & Data Vital Signs (Past 12 Hours) Vital Signs Temp Pulse Pulse Pulse Resp BP Pulse Ox 02/03/23 08:06 57 L 02/03/23 07:32 36.6 C 82 20 131/75 96 02/03/23 04:03 36.7 C 62 18 118/59 L 94 02/03/23 00:16 36.8 C 62 18 125/71 94 02/02/23 21:58 56 L O2 Del Method 02/03/23 08:06 02/03/23 07:32 Room Air 02/03/23 04:03 Room Air 02/03/23 00:16 Room Air 02/02/23 21:58
--- NOTE | 2023-02-03 09:08 | Electrocardiogram Report ---
Test Reason : Blood Pressure : / mmHG Vent. 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
[2023-02-03] MEDS: SERTRALINE HCL 100 MG TABLET PO SCH (09:22)
[2023-02-03] MEDS: POTASSIUM CHLORIDE / WTR 10 MEQ/100 ML PLCT IV SCH ×2 (09:22→10:45)
[2023-02-03] MEDS: PREGABALIN 25 MG CAP PO SCH ×2 (09:25→21:38)
--- NOTE | 2023-02-03 12:52 | Hospitalist Progress Note ---
Date of Service February 03, 2023 Assessment & Plan (1) Melena: (2) S/P ERCP: Plan: Possible upper GI bleed Patient is 87 y/o F with PMH HLD, GERD, Avendaño's esophagus, depression, post herpetic neuralgia presented to ER with complaint of numerous loose melanotic stools today. S/P ERCP 02/01/[address] Marshall for choledocholithiasis. Remains hemodynamically stable Started on intravenous Zosyn for possible infection Blood cultures have been taken-pending results now Has been on n.p.o. and clears to started this morning IVF Type and cross and hold PRBC. Repeat H&H. Plan to transfuse if needed PPI bolus and drip Appreciate GI input and recommendation She has been feeling much better we will continue current management (3) Barretts esophagus: Plan: On Protonix at home Currently on IV Protonix (4) Hyperlipidemia: Plan: Plan to resume simvastatin when can take po (5) Depression: Plan: On sertraline. Plan to resume when can take po DVT Prophylaxis SCDs DNR/DNI as per discussion with pt Follows with Dr Herndon for routine care Admission and Anticipated Discharge Date Admission Date: February 02, 2023 Subjective 02/03/2023 The patient was seen and examined in medical telemetry unit She is a status post ERCP with hemostasis and stent placement on of this month Has been having melena following the procedure Denies any abdominal pain but does have minimal discomfort, no nausea and or vomiting Review of Systems Review of Systems: All systems reviewed and are unremarkable except as noted below Physical Exam Physical Exam: Sitting on a chair without any acute distress Constitutional: well developed, well nourished and + ill appearing Eyes: PERRL, conjunctivae normal, anicteric sclerae ENMT: external ear and nose normal, oropharynx normal Neck: trachea midline, no thyromegaly Respiratory: no respiratory distress Auscultation: lungs clear to auscultation bilaterally; no crackles Cardiovascular: Rate/Rhythm: regular rate, regular rhythm and + bradycardic Heart Sounds: normal S1 and normal S2; no murmur Extremities: + edema (Trace edema bilaterally) Gastrointestinal (Abdomen): Inspection/Auscultation: normal bowel sounds; abdomen not distended Percussion/Palpation: abdomen soft; abdomen nontender Musculoskeletal: No acute arthritis involving any of the joint Neurologic: normal touch/pain/proprioception and moves all extremities; no focal motor deficits Psychiatric: A+Ox3, euthymic affect Results & Data Results & Data Vital Signs (Past 12 Hours) Vital Signs Temp Pulse Pulse Pulse Resp BP Pulse Ox 02/03/23 12:15 36.7 C 53 L 18 106/67 96 02/03/23 08:00 02/03/23 08:06 57 L 02/03/23 07:32 36.6 C 82 20 131/75 96 02/03/23 04:03 36.7 C 62 18 118/59 L 94 O2 Del Method 02/03/23 12:15 Room Air 02/03/23 08:00 Room Air 02/03/23 08:06 02/03/23 07:32 Room Air 02/03/23 04:03 Room Air Laboratory Results Short CBC 02/02/23 02/02/23 02/02/23 Range/Units 12:16 12:16 17:38 WBC 11.13 H 11.23 H (4.8-10.8) K/ul Hgb 13.0 13.2 11.7 L (12.0-16.0) g/dl Hct 40.1 40.9 35.5 L (37.0-47.0) % Plt Count 387 403 H (130-400) K/uL 02/03/23 02/03/23 Range/Units 00:40 05:32 WBC 9.16 (4.8-10.8) K/ul Hgb 10.7 L 10.4 L (12.0-16.0) g/dl Hct 32.2 L 30.9 L (37.0-47.0) % Plt Count 342 (130-400) K/uL BMP 02/02/23 02/03/23 12:16 05:32 Sodium 142 140 Potassium 3.7 3.3 L Chloride 106 109 H Carbon Dioxide 24 25 BUN 33 H 22 Creatinine 0.78 0.71 Glucose 94 113 H Calcium 9.3 8.2 L Liver Function 02/02/23 02/03/23 Range/Units 12:16 05:32 Total Bilirubin 1.1 H 0.9 (0.2-1.0) mg/dl AST 29 19 (13-39) U/L ALT 63 H 40 (7-52) U/L Alkaline Phosphatase 225 H 148 H (34-104) U/L Albumin 4.1 3.2 L (3.4-5.0) gm/dl Medications Administered Current Inpatient Medications Acetaminophen (Acetaminophen 325 Mg Tab) 650 mg PO Q4H PRN PRN Reason: Pain or Fever Stop: 03/04/23 17:52 Pantoprazole Sodium 40 mg/ (Dextrose) 100 mls @ 20 mls/hr IV Q5H [facility] Stop: 03/04/23 14:59 Last Admin: 02/03/23 10:15 Dose: 8 mg/hr, 20 mls/hr Ciprofloxacin (Cipro / D5w) 400 mg in 200 mls @ 100 mls/hr IV Q12H [facility]; Protocol Stop: 02/12/23 16:14 Last Infusion: 02/03/23 07:05 Dose: Infused Morphine Sulfate (Morphine Sulfate 2 Mg/Ml Carp) 2 mg IV Q4H PRN PRN Reason: Severe Pain (Scale 7, 8, 9,10) Stop: 02/16/23 17:52 Ondansetron HCl (Ondansetron Inj 2 Mg/Ml 2 Ml Vial) 4 mg IV Q6H PRN PRN Reason: Nausea Stop: 03/04/23 17:16 Oxycodone HCl (Oxycodone Hcl Ir 5 Mg Tab (Immediate Release)) 5 mg PO Q6H PRN PRN Reason: Moderate Pain (Scale 4, 5, 6) Stop: 02/16/23 17:52 Phenol (Chloraseptic 1.4% Soln 180 Ml Btl) 2 sprays MT Q4H PRN PRN Reason: sore troat Stop: 03/04/23 18:16 Last Admin: 02/03/23 05:08 Dose: 2 sprays Pregabalin (Pregabalin 25 Mg Cap) 25 mg PO BID [facility] Stop: 03/04/23 20:59 Last Admin: 02/03/23 09:25 Dose: 25 mg Sertraline HCl (Sertraline Hcl 100 Mg Tablet) 100 mg PO QAM [facility] Stop: 03/05/23 08:59 Last Admin: 02/03/23 09:22 Dose: 100 mg Simvastatin (Simvastatin 20 Mg Tab) 20 mg PO PM [facility] Stop: 03/05/23 20:59
[2023-02-03] MEDS ORDERED: SIMVASTATIN 20 MG TAB PO SCH (21:00)
[2023-02-04] MEDS: PANTOprazole 40 MG in DEXTROSE 5% MINI-B 100 ML IV SCH ×2 (04:57→10:00)
[2023-02-04] MEDS: CIPROFLOXACIN / D5W 400 MG/200 ML BAG IV SCH (06:05)
[2023-02-04 06:55] LABS: Basophils # (auto) 0.08 K/uL (0.00-0.20); Basophils % (auto) 1.2 %; Eosinophils # (auto) 0.37 K/uL (0.00-0.50); Eosinophils % (auto) 5.6 %; Hematocrit (blood only) 31.9 % (37.0-47.0); Hemoglobin 10.2 g/dl (12.0-16.0); Immature Granulocytes # (auto) 0.06 K/uL (0.01-0.20); Immature Granulocytes % (auto) 0.9 %; Lymphocytes # (auto) 1.99 K/uL (1.20-3.40); Mean Corpuscular Hemoglobin 30.2 pg (25.0-34.0); Mean Corpuscular Volume 94.4 fL (80.0-100.0); Mean Platelet Volume 10.9 fL (9.4-12.4); Monocytes # (auto) 0.63 K/uL (0.11-0.59); Monocytes % (auto) 9.5 %; Neutrophils % (auto) 52.8 %; Platelet Count 299 K/uL (130-400); RDW Coefficient of Variation 14.5 % (11.5-14.5); RDW Standard Deviation 49.4 fL (36.4-46.3); Red Blood Count 3.38 M/uL (4.20-5.40); White Blood Count 6.63 K/ul (4.8-10.8)
[2023-02-04 07:12] LABS: BUN Creatinine Ratio 17.6 (10-20); Calcium 8.5 mg/dl (8.6-10.3); Creatinine Clr Calc Pharmacy 65.3 ml/min; Est GFR (African American) 91.2 ml/min; Est GFR (Non-African American) 78.6 ml/min; Potassium 3.5 mmol/L (3.5-5.1)
[2023-02-04] MEDS: PREGABALIN 25 MG CAP PO SCH (09:10)
[2023-02-04] MEDS: SERTRALINE HCL 100 MG TABLET PO SCH (09:11)
--- NOTE | 2023-02-04 12:19 | Gastroenterology Progress Note ---
Date of Service February 04, 2023 Assessment & Plan (1) Melena: Plan: Doing well. Okay with me to go home. Admission and Anticipated Discharge Date Admission Date: February 02, 2023 Subjective No bleeding. H/H are stable. Wants to go home Physical Exam Constitutional: WD/WN, vitals as above Results & Data Vital Signs (Past 12 Hours) Vital Signs Temp Pulse Pulse Resp BP Pulse Ox O2 Del Method 02/04/23 08:00 Room Air 02/04/23 11:42 36.6 C 54 L 16 129/73 96 Room Air 02/04/23 08:05 36.4 C L 52 L 16 129/78 97 Room Air 02/04/23 07:21 73 02/04/23 04:22 36.8 C 63 18 113/67 96 Room Air 02/04/23 00:22 36.7 C 62 18 128/76 94 Room Air
--- NOTE | 2023-02-04 14:30 | Hospitalist Progress Note ---
Date of Service February 04, 2023 Assessment & Plan (1) Melena: (2) S/P ERCP: Plan: Possible upper GI bleed Patient is 87 y/o F with PMH HLD, GERD, Avendaño's esophagus, depression, post herpetic neuralgia presented to ER with complaint of numerous loose melanotic stools today. S/P ERCP 02/01/[address] Marshall for choledocholithiasis. Remains hemodynamically stable Started on intravenous Zosyn for possible infection Blood cultures have been taken-pending results now Has been on n.p.o. and clears to started this morning IVF Type and cross and hold PRBC. Repeat H&H. Plan to transfuse if needed PPI bolus and drip Appreciate GI input and recommendation She has been feeling much better we will continue current management No more melena and hemoglobin remains stable Bowel is moving and the patient is ambulant without any symptoms She will finish the course of antibiotic on discharge (3) Barretts esophagus: Plan: On Protonix at home Currently on IV Protonix We will continue home dose of Protonix on discharge (4) Hyperlipidemia: Plan: Plan to resume simvastatin when can take po (5) Depression: Plan: On sertraline. Plan to resume when can take po DVT Prophylaxis SCDs DNR/DNI as per discussion with pt Follows with Dr Herndon for routine care Will be discharged home this afternoon Admission and Anticipated Discharge Date Admission Date: February 02, 2023 Subjective 02/03/2023 The patient was seen and examined in medical telemetry unit She is a status post ERCP with hemostasis and stent placement on of this month Has been having melena following the procedure Denies any abdominal pain but does have minimal discomfort, no nausea and or vomiting 02/04/2023 The patient was seen and examined in medical telemetry unit She has been feeling much better and did not have any more melena No abdominal pain, nausea or vomiting Has been ambulating in the room and hallway without any problem Review of Systems Review of Systems: All systems reviewed and are unremarkable except as noted below Physical Exam Physical Exam: Sitting on a chair without any acute distress Constitutional: well developed, well nourished and + ill appearing Eyes: PERRL, conjunctivae normal, anicteric sclerae ENMT: external ear and nose normal, oropharynx normal Neck: trachea midline, no thyromegaly Respiratory: no respiratory distress Auscultation: lungs clear to auscultation bilaterally; no crackles Cardiovascular: Rate/Rhythm: regular rate, regular rhythm and + bradycardic Heart Sounds: normal S1 and normal S2; no murmur Extremities: + edema (Trace edema bilaterally) Gastrointestinal (Abdomen): Inspection/Auscultation: normal bowel sounds; abdomen not distended Percussion/Palpation: abdomen soft; abdomen nontender Neurologic: normal touch/pain/proprioception and moves all extremities; no focal motor deficits Psychiatric: A+Ox3, euthymic affect Results & Data Results & Data Vital Signs (Past 12 Hours) Vital Signs Temp Pulse Pulse Resp BP Pulse Ox O2 Del Method 02/04/23 08:00 Room Air 02/04/23 11:42 36.6 C 54 L 16 129/73 96 Room Air 02/04/23 08:05 36.4 C L 52 L 16 129/78 97 Room Air 02/04/23 07:21 73 02/04/23 04:22 36.8 C 63 18 113/67 96 Room Air Laboratory Results Short CBC 02/04/23 Range/Units 05:56 WBC 6.63 (4.8-10.8) K/ul Hgb 10.2 L (12.0-16.0) g/dl Hct 31.9 L (37.0-47.0) % Plt Count 299 (130-400) K/uL [facility] 02/04/23 05:56 Sodium 143 Potassium 3.5 Chloride 111 H Carbon Dioxide 26 BUN 12 Creatinine 0.68 Glucose 105 H Calcium 8.5 L Medications Administered Current Inpatient Medications Acetaminophen (Acetaminophen 325 Mg Tab) 650 mg PO Q4H PRN PRN Reason: Pain or Fever Stop: 03/04/23 17:52 Pantoprazole Sodium 40 mg/ (Dextrose) 100 mls @ 20 mls/hr IV Q5H [facility] Stop: 03/04/23 14:59 Last Admin: 02/04/23 10:00 Dose: 8 mg/hr, 20 mls/hr Ciprofloxacin (Cipro / D5w) 400 mg in 200 mls @ 100 mls/hr IV Q12H [facility]; Protocol Stop: 02/12/23 16:14 Last Infusion: 02/04/23 08:05 Dose: Infused Morphine Sulfate (Morphine Sulfate 2 Mg/Ml Carp) 2 mg IV Q4H PRN PRN Reason: Severe Pain (Scale 7, 8, 9,10) Stop: 02/16/23 17:52 Ondansetron HCl (Ondansetron Inj 2 Mg/Ml 2 Ml Vial) 4 mg IV Q6H PRN PRN Reason: Nausea Stop: 03/04/23 17:16 Oxycodone HCl (Oxycodone Hcl Ir 5 Mg Tab (Immediate Release)) 5 mg PO Q6H PRN PRN Reason: Moderate Pain (Scale 4, 5, 6) Stop: 02/16/23 17:52 Phenol (Chloraseptic 1.4% Soln 180 Ml Btl) 2 sprays MT Q4H PRN PRN Reason: sore troat Stop: 03/04/23 18:16 Last Admin: 02/03/23 05:08 Dose: 2 sprays Pregabalin (Pregabalin 25 Mg Cap) 25 mg PO BID [facility] Stop: 03/04/23 20:59 Last Admin: 02/04/23 09:10 Dose: 25 mg Sertraline HCl (Sertraline Hcl 100 Mg Tablet) 100 mg PO QAM [facility] Stop: 03/05/23 08:59 Last Admin: 02/04/23 09:11 Dose: 100 mg Simvastatin (Simvastatin 20 Mg Tab) 20 mg PO PM [facility] Stop: 03/05/23 20:59 Last Admin: 02/03/23 21:38 Dose: 20 mg
--- NOTE | 2023-02-05 09:01 | Discharge Summary ---
Date of Service February 05, 2023 Admission HPI Per Admitting Provider Patient is 87 y/o F with PMH HLD, GERD, Avendaño's esophagus, depression, post herpetic neuralgia presented to ER with complaint of dark-colored stools today. History obtained from patient and outpatient chart review. Patient had been having intermittent epigastric pain for the past couple months and had outpatient work-up with concern for choledocholithiasis. Had ERCP, stone removal on 02/01/[address] Marshall for choledocholithiasis. Patient states after procedure was doing well but having some mild epigastric discomfort. This morning around 4 AM woke up with nausea, dry heaves and reports has had approximately 20 episodes of loose black stools. Since arrival in ER has not had any further BMs. Has not noted any fever or chills in the last 24 hours. [place] a little lightheaded with ambulating this morning. This morning had a piece of toast for breakfast. She reports took her morning medicines. Denies diaphoresis, ACKERMAN, syncope, vision changes, neck pain, CP, SOB, orthopnea, palpitations, cough, sore throat, rhinorrhea, paresthesias, extremity weakness, extremity edema, rashes, urinary symptoms. Admission Exam Per Admitting Provider Physical Exam: General: no distress, WDWN, elderly female Head: normocephalic, atraumatic Eyes: conjunctiva non-injected, anicteric ENT: normal inspection external ears, nose, mucous membranes moist Neck: supple, trachea midline Lungs: clear, no respiratory distress, no wheezing/rhonchi/rales CV: RRR, no murmur, no pretibial edema Abd: normal BS, soft, +tenderness epigastric region Ext: no cyanosis, no calf tenderness Neuro: A&O x 3, no focal deficits noted, normal affect Skin: warm, dry Principal Diagnosis Melena status post ERCP Discharge Exam Sitting on a chair without any acute distress Constitutional well developed, well nourished and + ill appearing Eyes PERRL, conjunctivae normal, anicteric sclerae ENMT external ear and nose normal, oropharynx normal Neck trachea midline, no thyromegaly Respiratory no respiratory distress Auscultation: lungs clear to auscultation bilaterally; no crackles Cardiovascular Rate/Rhythm: regular rate, regular rhythm and + bradycardic Heart Sounds: normal S1 and normal S2; no murmur Extremities: + edema (Trace edema bilaterally) Gastrointestinal (Abdomen) Inspection/Auscultation: normal bowel sounds; abdomen not distended Percussion/Palpation: abdomen soft; abdomen nontender Neurologic normal touch/pain/proprioception and moves all extremities; no focal motor deficits Psychiatric A+Ox3, euthymic affect Discharge Data Allergies Allergy/AdvReac Type Severity Reaction Status Date / Time Sulfa (Sulfonamide Allergy Severe FACIAL Verified 02/02/23 13:37 Antibiotics) SWELLING A TEEN Consultations 02/02/23 13:31 Consult Gastroenterology Stat ED Decision to Admit Stat Procedures Performed Operation Date: 02/02/23 14:50 Actual Procedures p Endoscopic Retrograde Cholangiopancreato with hemostasis and stent placement. - Linda Marshall, Ordered Studies 02/02/23 15:03 [place] ERCP biliary ductal Routine Hospital Course (1) Melena: (2) S/P ERCP: Possible upper GI bleed Patient is 87 y/o F with PMH HLD, GERD, Avendaño's esophagus, depression, post herpetic neuralgia presented to ER with complaint of numerous loose melanotic stools today. S/P ERCP 02/01/[address] Marshall for choledocholithiasis. Remains hemodynamically stable Started on intravenous Zosyn for possible infection Blood cultures have been taken-pending results now Has been on n.p.o. and clears to started this morning IVF Type and cross and hold PRBC. Repeat H&H. Plan to transfuse if needed PPI bolus and drip Appreciate GI input and recommendation She has been feeling much better we will continue current management No more melena and hemoglobin remains stable Bowel is moving and the patient is ambulant without any symptoms She will finish the course of antibiotic on discharge (3) Barretts esophagus: On Protonix at home Currently on IV Protonix We will continue home dose of Protonix on discharge (4) Hyperlipidemia: Plan to resume simvastatin when can take po (5) Depression: On sertraline. Plan to resume when can take po DVT Prophylaxis SCDs DNR/DNI as per discussion with pt Follows with Dr Herndon for routine care Will be discharged home this afternoon Total Time Total Time Spent Total Time Spent (In Minutes): 35 minutes Discharge Plan Discharge Items Patient Disposition: Home - Self-Care Reason For Visit: MELENA Discharge Diagnosis: Melena status post ERCP Condition on Discharge: Good Activity: Resume your previous activity Non-emergency contact: Primary Care Provider Call non-emergency contact if: you have any medication questions and your symptoms worsen Follow-up/Referrals: Jessica Herndon DO [Primary Care Provider] - (Your doctor's office will call you with an appointment within 7 days) Diet: Regular Addtl Attending Provider Instructions: Please take precautions to avoid falls Finish the course of antibiotic as planned before Keep appointment with a healthcare provider Do not take any NSAIDs like Motrin, ibuprofen, naproxen etc Pending Studies at Discharge: No Stand-Alone Forms: My [employer], Smoking Cessation Medications and DC Order Prescriptions: Continued pantoprazole 40 mg tablet,delayed release (DR/EC) 40 mg PO BID Qty: 180 3RF simvastatin 20 mg tablet 20 mg PO PM Qty: 90 3RF calcium carbonate [Calcium 600] 600 mg calcium (1,500 mg) Tablet 600 mg PO QPM cholecalciferol (vitamin D3) [Vitamin D3] 2,000 unit Tablet 4,000 unit PO QPM omega 1-yox-jfr-fish oil [Fish Oil] 1,000 mg (120 mg-180 mg) Capsule 1 cap PO QPM PreserVision AREDS-2 [id number] Capsule 1 tab PO BID amoxicillin 500 mg tablet 2,000 mg PO UD PRN (Reason: PRE DENTAL) Patient Comments: prior to dental procedure Rx Instructions: 4 tabs 1 hour prior to procedure alendronate 70 mg tablet 70 mg PO WK sertraline 100 mg tablet 100 mg PO QAM ciprofloxacin HCl 500 mg tablet 500 mg PO BID Rx Instructions: Start Date 02/01/23 - End Date 02/06/23 pregabalin 25 mg capsule 25 mg PO AMPM Discharge Orders: Discharge Order (Routine); Ordered 02/04/23 Ordered By: Geni Rodriguez Admission Data Admit Date/Time: 02/02/23 14:36 Attending Provider: Geni Rodriguez Admit Provider: Haley Parikh Primary Care Provider: Jessica Herndon Other Providers: Linda Marshall ; Haley Parikh Other Interventions: Discharge Summary Assessment (RN) Last Done: 02/04/23 15:34
== END 2023-02-04 16:18 | disposition home or self-care (01) ==
LOC: ED 11:56 → OR 14:35 → 2N 14:35 → SUATTDRO 14:36 → OR 14:52

== ENCOUNTER 2024-01-17 15:47 | Inpatient (IN) ==
--- NOTE | 2024-01-17 16:06 | Emergency Department Note ---
ED Provider Note History of Present Illness Chief Complaint: Foot Injury/Pain Stated Complaint: PRE ADMIN FOR FOOT SURGERY Time Seen by Provider: 01/17/24 15:56 88-year-old female who presents to the emergency department with her for evaluation of right ankle pain. The patient reports that she was leaving Dr. Farooq's office this morning and she fell getting into her car. The patient then went to the [facility], where x-rays were performed showing a fracture. Dr. Farooq was made aware of the fracture, and was instructed to come to the emergency department for admission and he would repair the ankle tomorrow. The patient had a splint applied, and the patient returns to the emergency department for further management. The patient rates her discomfort a 10 out of 10. The patient was administered a hydrocodone at the [facility] emergency department. Home Medications Medication Instructions Recorded Confirmed Type calcium carbonate (Calcium 600) 600 mg PO QPM 04/19/18 01/17/24 History cholecalciferol (vitamin D3) 50 4,000 unit PO QPM 04/19/18 01/17/24 History mcg (2,000 unit) tablet (Vitamin D3) omega 1-vyx-vag-fish oil 1,000 mg 1 cap PO QPM 04/19/18 01/17/24 History (120 mg-180 mg) capsule (Fish Oil) vit C 250 mg-vit E 90 mg-zinc 40 1 tab PO BID 04/19/18 01/17/24 History mg-copper 1 [id number] capsule (PreserVision AREDS-2) amoxicillin 500 mg tablet 2,000 mg PO UD PRN PRE DENTAL 01/10/22 01/17/24 History pantoprazole 40 mg tablet,delayed 40 mg PO BID #180 tabs 06/20/22 01/17/24 Rx release simvastatin 20 mg tablet 20 mg PO PM #90 tabs 06/20/22 01/17/24 Rx pregabalin 25 mg capsule 25 mg PO AMPM 02/02/23 01/17/24 History sertraline 100 mg tablet 100 mg PO QAM 02/02/23 01/17/24 History Allergies Allergy/AdvReac Type Severity Reaction Status Date / Time Sulfa (Sulfonamide Allergy Severe FACIAL Verified 09/03/23 10:21 Antibiotics) SWELLING A TEEN Past Med/Surg History Problem List (Updated 01/17/24 @ 17:06 by Neil Crotes) Closed displaced trimalleolar fracture of right ankle (Acute) Closed fracture dislocation of right ankle (Acute) Parotid sialoadenitis Sicca syndrome Ischial bursitis of left side Tear of gluteus medius tendon Tear of gluteus minimus tendon Greater trochanteric pain syndrome Abdominal pain (Acute) Depression Neuropathy Hyperlipidemia S/P ERCP Melena Rib pain Arthritis of carpometacarpal (CMC) joint of both thumbs Right wrist sprain Left carpal tunnel syndrome Parotid mass Encounter for pre-operative examination Abdominal pain Hx of cholecystectomy S/P appendectomy H/O: hysterectomy Umbilical hernia History of total knee replacement B/L Encounter for pre-operative examination Vitamin D deficiency Trochanteric bursitis of right hip Solitary thyroid nodule Postmenopausal atrophic vaginitis Post herpetic neuralgia Nontoxic multinodular goiter Hypercholesterolemia Carpal tunnel syndrome of left wrist 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 Greater trochanteric bursitis Ankle pain, left Pes anserine bursitis History of reverse total replacement of shoulder joint (~08/2019) Rotator cuff tear, right Posterior tibial tendon dysfunction (PTTD) of left lower extremity Status post reverse arthroplasty of right shoulder (~08/2019) Pes anserine bursitis Hip bursitis History of bilateral knee replacement Cervical lymphadenopathy Mass of parotid gland Distal radius fracture, left Chronic rhinitis Loose bowel movement Low vitamin B12 level Abdominal pain Barretts esophagus De Quervain's tenosynovitis, right Strain of foot Abdominal pain, acute, epigastric Umbilical hernia Incisional hernia Arthritis Stomach ulcer Status post repair of ventral hernia Current use of proton pump inhibitor Barretts esophagus Epigastric pain Change in bowel habits Medical History History of colon polyps Abdominal pain ONGOING FOR AWHILE...REASON FOR UPCOMING PROCEDURE NO CHANGES IN BASELINE Trochanteric bursitis, left hip BOTH HIPS - INJECTION IN BOTH JAN 02 2022 Encounter for pre-operative examination Ankle pain, chronic chronic left ankle pain after ankle surgery/unable to walk or stand for long period of time/occasional cane 2021 better since most recent sx at [facility] [place] Temporomandibular joint disorder Hx clicking, no locking Avendaño's esophagus Benign positional vertigo Occasional Osteoporosis Anxiety Macular degeneration q4-6 weeks eye injections Prediabetes Obesity Osteoarthritis GERD (gastroesophageal reflux disease) controlled Surgical History History of total left knee replacement History of total right knee replacement History of incisional hernia repair (10/25/21) Open Incisional Hernia Repair(Not Applicable) - Christoph Villar, DO Previous section x2 S/P hammer toe correction S/P trigger finger release History of total shoulder replacement left and right total reverse shoulder History of toe surgery RIGHT TOE AMPUTATION (2/ OSTEOMYELITIS)= 12/12/17= MAC SEDATION AT [facility] Left third toe amputation (06/15/21): MAC at [facility] [place]. No issues noted per post-op anesthesia progress note. History of tooth extraction History of carpal tunnel release RIGHT History of foot surgery bilateral History of ankle surgery SEVERAL SX- MOST RECENT LEFT ANKLE DONE AT [facility] [place] WITHIN LAST 2 YRS X2, r ankle surgery History of repair of rotator cuff B/L History of cholecystectomy History of total abdominal hysterectomy and bilateral salpingo-oophorectomy History of esophagogastroduodenoscopy (EGD) History of colonoscopy History of back surgery lumbar discectomy Family History Mother Myocardial infarction Hypertension Father History of lung cancer Denies family history of Colon cancer Ovarian cancer Prostate cancer Hearing loss No family history of adverse response to anesthesia No family history of bleeding disorder Heart disease Allergies Breast cancer Stroke Asthma Social History Smoking Status: Never smoker Second Hand Exposure: No; Do You Dip or Chew Tobacco: No; Hx Alcohol Use: No Hx Substance Use: No Preferred Language: Lebanese Communication Ability: Effective Visual Impairment: Limited Hearing Ability: Normal 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 Beliefs That Will Affect Care: None marital status: Current Living Situation: Spouse current occupational status: retired How many Children do You have: 4 Feels Safe at Home: Yes Childhood Exposure to Second-Hand Smoke: Yes during the past year weight has: decreased > 10 lbs Dental Care, Regularly: Yes Seatbelt Use: always Sunscreen Use: Yes Assistive Devices: Cane Physical Exam Vital Signs Vital Signs - 24 hr 01/17/24 15:52 Temperature 36.8 C Temperature Source Temporal Artery Scan Pulse Rate 79 Respiratory Rate 12 Respiratory Effort / Characteristics Non-Labored Respiratory Depth Normal Blood Pressure 166/78 H Blood Pressure Mean 107 Pulse Oximetry 98 Oxygen Delivery Method Room Air Sepsis Recent Fever Within 48 Hours No Sepsis New/Unexplained Change in Mental Status N/A Sepsis Action Taken by Nursing No Action Required CONSTITUTIONAL: Healthy and well nourished. Patient appears in moderately severe discomfort. HEENT: Normocephalic, atraumatic. NECK: Full active range of motion without discomfort. LYMPHATICS: No cervical chain adenopathy. RESPIRATORY: Clear to auscultation bilaterally with no wheezing, crackles, rhonchi or stridor. CARDIOVASCULAR: Regular rate and rhythm with no murmurs, rubs or gallops. MUSCULOSKELETAL: Examination of right lower extremity shows a short leg posterior Ortho-Glass splint with an obvious deformity of the ankle. Cap refill of the toes is less than 2 seconds. Splint was removed to show ecchymosis and skin tenting over the medial malleloar region. No tenderness to palpation of the proximal fibula. INTEGUMENTARY: No rash or other significant dermatologic conditions noted. HEMATOLOGIC: No ecchymosis or petechiae. PSYCHIATRIC: Positive affect. NEUROLOGIC: Right foot and toes are sensory intact. Procedures Free Text Procedures Ankle reduction was performed after administering fentanyl 200 mcg IVP. Reduction was successful. I did have to hold traction while an ankle stirrup and posterior splint was applied. Postreduction x-rays shows improved alignment. Cap refill of the toes remain less than 2 seconds. Course Course Patient history and physical exam were performed. Nurses notes were reviewed. IV access was established, and labs were drawn. The patient was administered a normal saline 500 cc bolus, along with initial IV fentanyl. X-rays of the right ankle shows a trimalleolar fracture dislocation. Our ED voip technician got everything set up, and the patient was administered additional IV fentanyl prior to reduction. A posterior and ankle stirrup Ortho-Glass splint was applied. Postreduction x-rays shows adequate reduction. I also reviewed labs, showing no concerning findings. An ECG and portable chest x-ray were also reviewed without any concerning findings. I did contact Dr. Farooq who requested hospitalist admission for medical clearance, and he will plan on surgical repair tomorrow. This information was relayed to the patient. I also discussed the case further with Dr. Richardson, ED attending physician, who agrees with plan of care. The case was then further discussed with the [facility] hospitalist service. Please see hospitalist and orthopedic dictations for further treatment and final disposition. Administered Medications Morphine Sulfate (Morphine Sulfate 2 Mg/Ml Carp) 2 mg IV Q3H PRN PRN Reason: Pain Stop: 01/31/24 20:05 Last Admin: 01/17/24 20:45 Dose: 2 mg Documented By: GALE Discontinued Medications Fentanyl Citrate (Fentanyl Citrate Pf 100 Mcg/2 Ml Vial) 100 mcg IV NOW STA Stop: 01/17/24 16:09 Last Admin: 01/17/24 16:14 Dose: 100 mcg Documented By: ROGER Fentanyl Citrate (Fentanyl Citrate Pf 100 Mcg/2 Ml Vial) 100 mcg IV NOW STA Stop: 01/17/24 16:38 Last Admin: 01/17/24 16:44 Dose: 100 mcg Documented By: ROGER Ondansetron HCl (Ondansetron Inj 2 Mg/Ml 2 Ml Vial) 4 mg IV NOW STA Stop: 01/17/24 16:08 Last Admin: 01/17/24 16:13 Dose: 4 mg Documented By: ROGER Medical Decision Making Medical Records Attestation: I reviewed the patient's medical records. Home Medications was personally reviewed by me Laboratory Data Attestation: I reviewed the patient's lab results. 01/17/24 19:08 01/17/24 19:08 Imaging Data Attestation: I personally reviewed and interpreted this imaging study as follows: My Impression: My interpretation of initial right ankle x-rays shows a trimalleolar fracture dislocation. My interpretation of postreduction x-rays shows adequate reduction. My interpretation of a portable chest x-ray does not show any consolidations or pneumothorax. Cardiomegaly is noted. Radiologist reports were also reviewed with concurrence. Radiologist's Impression: Ankle X-Ray 01/17/24 15:59 XR ankle RT min 3V routine HISTORY: 88 years-old Female R ankle injury acute pain of the right ankle COMPARISON: None TECHNIQUE: 3 views of the right ankle FINDINGS: Arterial calcifications. A metallic staple is again noted projected over the calcaneus. There is an acute trimalleolar ankle fracture with associated dislocation of the tibiotalar joint which is also angulated. Moderate soft tissue swelling. Demineralized appearance of the bones with moderate osteoarthritis. IMPRESSION: Acute fracture dislocation of the ankle. ACT 112: Negative or not required by law. The above report was generated using voice recognition software. It may contain grammatical, syntax or spelling errors. Electronically signed by: Zhang Guzman M.D. 01/17/2024 4:45 PM Chest X-Ray 01/17/24 16:06 XR chest 1V portable HISTORY: 88 years-old Female Pre-op preoperative exam. No acute chest complaints COMPARISON: 06/19/2022 TECHNIQUE: AP view of the chest FINDINGS: Cardiac silhouette is enlarged. Atherosclerosis of the aorta. Lungs are clear. Mild left basilar atelectasis/scarring. No pneumothorax or pleural effusion. Bilateral shoulder arthroplasties. Azygos lobe and fissure. IMPRESSION: Cardiomegaly without acute process. ACT 112: Negative or not required by law. The above report was generated using voice recognition software. It may contain grammatical, syntax or spelling errors. Electronically signed by: Zhang Guzman M.D. 01/17/2024 4:50 PM ECG Data Attestation: I personally reviewed and interpreted this ECG as follows: Indication: + other (Preoperative ECG) Rate (beats per minute): 71 Rhythm: + normal sinus ECG Intervals/blocks: + Normal QRS, + Normal QT and + Normal SD ECG [place]: + Normal ECG ST segments: + Normal ST segments ECG Findings: + Other (Low voltage QRS) Comparison ECG Date: from (10/20/2023) Change: no significant change MDM Narrative Definitive Fracture Care: Right ankle trimalleolar fracture dislocation, closed. Plan: immobilization, [otc/narcotic ORIF tomorrow by Dr. Farooq. Splint Care: After the Orthoglass splint was applied by the ED voip technician, I examined the splint and confirmed proper application/placement/position. Neurovascular status was intact both proximal and distal to the splinted area. See ED Course section for further details of today's visit. The patient presents after injuring her ankle in a parking lot while trying to get into her vehicle. She was seen at [facility] or x-rays showed an ankle fracture dislocation. These x-rays were reviewed with Dr. Farooq, who recommended being sent to our emergency department for reduction and admission, with the planned ORIF procedure tomorrow. Labs, ECG and a portable chest x-ray were reviewed to show no concerning findings. Impression Closed fracture dislocation of right ankle, Closed displaced trimalleolar fracture of right ankle Discharge Plan Visit Data Chief Complaint: Foot Injury/Pain Stated Complaint: PRE ADMIN FOR FOOT SURGERY ED Provider: Bebo Richardson ED Midlevel Provider: Neil Cortes Discharge Problem: Closed fracture dislocation of right ankle, Closed displaced trimalleolar fracture of right ankle Patient Disposition: Admitted As Inpatient Discharge Instructions Interventions: ED Discharge Assessment Last Done: 01/17/24 20:06 Discharge Problem: Closed fracture dislocation of right ankle Qualifiers: Encounter type: initial encounter Qualified Code(s): S82.891A - Other fracture of right lower leg, initial encounter for closed fracture Closed displaced trimalleolar fracture of right ankle Qualifiers: Encounter type: initial encounter Qualified Code(s): S82.851A - Displaced trimalleolar fracture of right lower leg, initial encounter for closed fracture
[2024-01-17] MEDS: ONDANSETRON INJ 2 MG/ML 2 ML VIAL IV STA (16:13)
[2024-01-17] MEDS: fentaNYL citrate PF 100 MCG/2 ML VIAL IV STA ×2 (16:14→16:44)
--- NOTE | 2024-01-17 16:32 | Emergency Department Note ---
ED Visit Note I was consulted by the Advanced Practice Provider, Neil Cortes PA-C. I personally made/approved the management plan and take responsibility for the patient management. I performed a substantive portion of the visit. This includes the aspects of: -History/Physical/Personally seeing the patient -MDM .
[2024-01-17] MEDS ORDERED: ACETAMINOPHEN 325 MG TAB PO PRN (16:44)
--- NOTE | 2024-01-17 16:47 | XRay Report ---
XR ankle RT min 3V routine HISTORY: 88 years-old Female R ankle injury acute pain of the right ankle COMPARISON: None TECHNIQUE: 3 views of the right ankle FINDINGS: Arterial calcifications. A metallic staple is again noted projected over the calcaneus. There is an a cute trimalleolar ankle fracture with associated dislocation of the tibiotalar joint which is also an gulated. Moderate soft tissue swelling. Demineralized appearance of the bones with moderate osteoarth ritis. IMPRESSION: Acute fracture dislocation of the ankle. ACT 112: Negative or not required by law. The above report was generated using voice recognition software. It may contain grammatical, syntax o r spelling errors. Electronically signed by: Zhang Guzman M.D. 01/17/2024 4:45 PM
--- NOTE | 2024-01-17 16:52 | XRay Report ---
XR chest 1V portable HISTORY: 88 years-old Female Pre-op preoperative exam. No acute chest complaints COMPARISON: 06/19/2022 TECHNIQUE: AP view of the chest FINDINGS: Cardiac silhouette is enlarged. Atherosclerosis of the aorta. Lungs are clear. Mild left basilar atel ectasis/scarring. No pneumothorax or pleural effusion. Bilateral shoulder arthroplasties. Azygos lobe and fissure. IMPRESSION: Cardiomegaly without acute process. ACT 112: Negative or not required by law. The above report was generated using voice recognition software. It may contain grammatical, syntax o r spelling errors. Electronically signed by: Zhang Guzman M.D. 01/17/2024 4:50 PM
--- NOTE | 2024-01-17 17:13 | History & Physical Report ---
Date of Service January 17, 2024 Assessment & Plan (1) Closed displaced trimalleolar fracture of right ankle: (2) Hyperlipidemia: (3) History of total knee replacement: (4) Hypercholesterolemia: (5) Barretts esophagus: (6) Vitamin D deficiency: Plan Assessment and plan: Right ankle fracture: Right lower extremity currently in a splint, positive pedal pulses Orthopedics following, plan for OR in a.m. for right bimalleolar ORIF with Dr. Farooq Pain control, chest x-ray/EKG unremarkable. Await lab results for OR clearance Hx HLD: Continue omega-3/statin Hx GERD: Continue pantoprazole Hx depression: Continue sertraline A total of 45 minutes was spent on chart review/medical decision making/discussion with specialists/plan of care Patient is a DNR/DNI DVT prophylaxis: Heparin subcu History of Present Illness Chief Complaint: Right ankle pain Primary Care Provider: Jessica Herndon DO The patient is an 88-year-old female with a past medical history of HLD, chronic left hip pain, bilateral total knee replacements, GERD, Avendaño's esophagus, depression who presents to the ED on 01/17/2024 with complaints of right ankle pain. Patient was at Dr. Farooq's office today getting a hip injection and she reports she went to go get in the car her foot slipped and she fell backward. She does report hitting her head. She was seen at the urgent care prior to arrival to our ED. Reported getting an x-ray of her right ankle that showed a fracture and a head CT that was negative. On exam, the patient does still report 7/10 pain. A splint is in place. Positive pedal pulses. No numbness and tingling of right lower extremity on exam. She is able to wiggle her toes. She denies any fever/chills/chest pain/nausea/vomiting/diarrhea/abdominal pain Her EKG showed normal sinus rhythm with no acute changes Chest x-ray unremarkable, cardiomegaly noted Ankle x-ray showed significant improvement in alignment of the right ankle fracture postreduction The patient will be admitted for further management of right ankle fracture Allergies Allergy/AdvReac Type Severity Reaction Status Date / Time Sulfa (Sulfonamide Allergy Severe FACIAL Verified 09/03/23 10:21 Antibiotics) SWELLING A TEEN Home Medications Medication Instructions Recorded Confirmed Type calcium carbonate (Calcium 600) 600 mg PO QPM 04/19/18 01/17/24 History cholecalciferol (vitamin D3) 50 4,000 unit PO QPM 04/19/18 01/17/24 History mcg (2,000 unit) tablet (Vitamin D3) omega 3-vbu-wro-fish oil 1,000 mg 1 cap PO QPM 04/19/18 01/17/24 History (120 mg-180 mg) capsule (Fish Oil) vit C 250 mg-vit E 90 mg-zinc 40 1 tab PO BID 04/19/18 01/17/24 History mg-copper 1 [id number]-[id number]-boaexo capsule (PreserVision AREDS-2) amoxicillin 500 mg tablet 2,000 mg PO UD PRN PRE DENTAL 01/10/22 01/17/24 History pantoprazole 40 mg tablet,delayed 40 mg PO BID #180 tabs 06/20/22 01/17/24 Rx release simvastatin 20 mg tablet 20 mg PO PM #90 tabs 06/20/22 01/17/24 Rx pregabalin 25 mg capsule 25 mg PO AMPM 02/02/23 01/17/24 History sertraline 100 mg tablet 100 mg PO QAM 02/02/23 01/17/24 History Past Med/Surg History Problem List (Updated 01/17/24 @ 17:06 by Neil Cortes) Closed displaced trimalleolar fracture of right ankle (Acute) Closed fracture dislocation of right ankle (Acute) Parotid sialoadenitis Sicca syndrome Ischial bursitis of left side Tear of gluteus medius tendon Tear of gluteus minimus tendon Greater trochanteric pain syndrome Abdominal pain (Acute) Depression Neuropathy Hyperlipidemia S/P ERCP Melena Rib pain Arthritis of carpometacarpal (CMC) joint of both thumbs Right wrist sprain Left carpal tunnel syndrome Parotid mass Encounter for pre-operative examination Abdominal pain Hx of cholecystectomy S/P appendectomy H/O: hysterectomy Umbilical hernia History of total knee replacement B/L Encounter for pre-operative examination Vitamin D deficiency Trochanteric bursitis of right hip Solitary thyroid nodule Postmenopausal atrophic vaginitis Post herpetic neuralgia Nontoxic multinodular goiter Hypercholesterolemia Carpal tunnel syndrome of left wrist 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 Greater trochanteric bursitis Ankle pain, left Pes anserine bursitis History of reverse total replacement of shoulder joint (~08/2019) Rotator cuff tear, right Posterior tibial tendon dysfunction (PTTD) of left lower extremity Status post reverse arthroplasty of right shoulder (~08/2019) Pes anserine bursitis Hip bursitis History of bilateral knee replacement Cervical lymphadenopathy Mass of parotid gland Distal radius fracture, left Chronic rhinitis Loose bowel movement Low vitamin B12 level Abdominal pain Barretts esophagus De Quervain's tenosynovitis, right Strain of foot Abdominal pain, acute, epigastric Umbilical hernia Incisional hernia Arthritis Stomach ulcer Status post repair of ventral hernia Current use of proton pump inhibitor Barretts esophagus Epigastric pain Change in bowel habits Medical History History of colon polyps Abdominal pain ONGOING FOR AWHILE...REASON FOR UPCOMING PROCEDURE NO CHANGES IN BASELINE Trochanteric bursitis, left hip BOTH HIPS - INJECTION IN BOTH JAN 02 2022 Encounter for pre-operative examination Ankle pain, chronic chronic left ankle pain after ankle surgery/unable to walk or stand for long period of time/occasional cane 2021 better since most recent sx at [facility] [place] Temporomandibular joint disorder Hx clicking, no locking Avendaño's esophagus Benign positional vertigo Occasional Osteoporosis Anxiety Macular degeneration q4-6 weeks eye injections Prediabetes Obesity Osteoarthritis GERD (gastroesophageal reflux disease) controlled Surgical History History of total left knee replacement History of total right knee replacement History of incisional hernia repair (10/25/21) Open Incisional Hernia Repair(Not Applicable) - Christoph Villar, DO Previous section x2 S/P hammer toe correction S/P trigger finger release History of total shoulder replacement left and right total reverse shoulder History of toe surgery RIGHT TOE AMPUTATION (2/2 OSTEOMYELITIS)= 12/12/17= MAC SEDATION AT [facility] Left third toe amputation (06/15/21): MAC at [facility] [place]. No issues noted per post-op anesthesia progress note. History of tooth extraction History of carpal tunnel release RIGHT History of foot surgery bilateral History of ankle surgery SEVERAL SX- MOST RECENT LEFT ANKLE DONE AT [facility] [place] WITHIN LAST 2 YRS X2, r ankle surgery History of repair of rotator cuff B/L History of cholecystectomy History of total abdominal hysterectomy and bilateral salpingo-oophorectomy History of esophagogastroduodenoscopy (EGD) History of colonoscopy History of back surgery lumbar discectomy Family History Mother Myocardial infarction Hypertension Father History of lung cancer Denies family history of Colon cancer Ovarian cancer Prostate cancer Hearing loss No family history of adverse response to anesthesia No family history of bleeding disorder Heart disease Allergies Breast cancer Stroke Asthma Social History Smoking Status: Never smoker Second Hand Exposure: No; Do You Dip or Chew Tobacco: No; Hx Alcohol Use: No Hx Substance Use: No Preferred Language: Icelandic Communication Ability: Effective Visual Impairment: Limited Hearing Ability: Normal Banquet Lead Required: No Beliefs That Will Affect Care: None marital status: Current Living Situation: Spouse current occupational status: retired How many Children do You have: 4 Feels Safe at Home: Yes Childhood Exposure to Second-Hand Smoke: Yes during the past year weight has: decreased > 10 lbs Dental Care, Regularly: Yes Seatbelt Use: always Sunscreen Use: Yes Assistive Devices: Cane Review of Systems Review of Systems: All systems reviewed & are unremarkable except as noted in HPI & below Results & Data Results & Data Vital Signs (Past 12 Hours) Vital Signs Temp Pulse Resp BP Pulse Ox O2 Del Method 01/17/24 15:52 36.8 C 79 12 166/78 H 98 Room Air Diagnostic Findings Impressions Chest X-Ray 01/17/24 16:06 XR chest 1V portable HISTORY: 88 years-old Female Pre-op preoperative exam. No acute chest complaints COMPARISON: 06/19/2022 TECHNIQUE: AP view of the chest FINDINGS: Cardiac silhouette is enlarged. Atherosclerosis of the aorta. Lungs are clear. Mild left basilar atelectasis/scarring. No pneumothorax or pleural effusion. Bilateral shoulder arthroplasties. Azygos lobe and fissure. IMPRESSION: Cardiomegaly without acute process. ACT 112: Negative or not required by law. The above report was generated using voice recognition software. It may contain grammatical, syntax or spelling errors. Electronically signed by: Zhang Guzman M.D. 01/17/2024 4:50 PM Ankle X-Ray 01/17/24 16:56 XR ankle RT 2V CLINICAL HISTORY: Postreduction COMPARISON: Right ankle radiographs performed earlier today. FINDINGS: Metallic staple projecting over the calcaneus is again noted. Overlying cast is noted. Alignment of the right ankle fracture/dislocation has significantly improved post reduction. Fractures remain mildly displaced. Tibiotalar alignment has significantly improved. IMPRESSION: Significant improvement in alignment of the right ankle fracture/dislocation post reduction. ACT 112: Negative or not required by law. Electronically signed by: Elliott Baker M.D. 01/17/2024 5:19 PM Supervising Physician Co-Signing Physician Notes Attending Addendum: Case reviewed with the advanced practitioner. I have personally performed a history and physical examination on the patient. I have reviewed the advanced practitioner's documentation on the date of service referenced in note, and I agree with, and take responsibility for the plan of care. please refer to her notes for full details patient seen and examined, records reviewed by myself as well on exam, patient seen resting in bed, ankle pain 5/10, manageable no chest pain, dyspnea, palpitations, dizziness no other symptoms VS noted and reviewed oriented x3 , not in distress, speaks in sentences with no effort nor accessory muscle use normal rate, regular rhythm, no murmurs clear breath sounds bilaterally non distended, soft, nontender R foot: cast in place no bipedal edema, erythema, warmth no neuro deficits all labs, imaging noted and reviewed ASSESSMENT AND PLAN> RIGHT ANKLE FRACTURE xray: Acute fracture dislocation of the ankle. no medical contraindications to proceed with orthopedic surgery patient high risk for cardiopulmonary complications given advanced age pain control with Tylenol and low dose morphine other diagnoses and plan of care as per advanced practitioner's notes Martínez Mcguire MD (1) Closed displaced trimalleolar fracture of right ankle Encounter type: initial encounter Qualified Code(s): S82.851A - Displaced trimalleolar fracture of right lower leg, initial encounter for closed fracture
--- NOTE | 2024-01-17 17:20 | XRay Report ---
XR ankle RT 2V CLINICAL HISTORY: Postreduction COMPARISON: Right ankle radiographs performed earlier today. FINDINGS: Metallic staple projecting over the calcaneus is again noted. Overlying cast is noted. Ali gnment of the right ankle fracture/dislocation has significantly improved post reduction. Fractures r emain mildly displaced. Tibiotalar alignment has significantly improved. IMPRESSION: Significant improvement in alignment of the right ankle fracture/dislocation post reducti on. ACT 112: Negative or not required by law. Electronically signed by: Elliott Baker M.D. 01/17/2024 5:19 PM
[2024-01-17] MEDS ORDERED: hydrALAZINE HCL 20 MG/ML VIAL IV PRN (17:21)
[2024-01-17 19:23] LABS: Hematocrit (blood only) 43.6 % (37.0-47.0); Mean Corpuscular Hemoglobin 29.7 pg (25.0-34.0); Mean Corpuscular Hgb Conc 32.1 g/dL (32.0-36.0); Mean Corpuscular Volume 92.4 fL (80.0-100.0); Mean Platelet Volume 10.1 fL (9.4-12.4); Platelet Count 431 K/uL (130-400); RDW Coefficient of Variation 13.5 % (11.5-14.5); Red Blood Count 4.72 M/uL (4.20-5.40); White Blood Count 17.02 K/ul (4.8-10.8)
[2024-01-17 19:38] LABS: Albumin Globulin Ratio 1.8 (0.9-2); Albumin Level 4.4 gm/dl (3.4-5.0); BUN Creatinine Ratio 26.8 (10-20); Bilirubin,Total 0.7 mg/dl (0.2-1.0); Calcium 9.6 mg/dl (8.6-10.3); Creatinine Clr Calc Pharmacy 42.3 ml/min; Globulin 2.4 gm/dl (2.5-4.0); Potassium 4.4 mmol/L (3.5-5.1); Total Protein 6.8 gm/dl (6.0-8.3)
[2024-01-17 19:51] LABS: Basophils # (auto) 0.05 K/uL (0.00-0.20); Basophils % (auto) 0.3 %; Immature Granulocytes # (auto) 0.27 K/uL (0.01-0.20); Immature Granulocytes % (auto) 1.6 %; Lymphocytes # (auto) 0.93 K/uL (1.20-3.40); Lymphocytes % (auto) 5.5 %; Monocytes # (auto) 0.27 K/uL (0.11-0.59); Monocytes % (auto) 1.6 %; RBC Morphology Unremarkable
[2024-01-17] MEDS ORDERED: ACETAMINOPHEN W/CODEINE #3 1 TAB PO PRN (20:06)
[2024-01-17] MEDS: MoRPHine SULFATE 2 MG/ML CARP IV PRN (20:45)
[2024-01-17] MEDS ORDERED: HEPARIN SOD 5,000 UNIT/0.5 ML VIAL SQ SCH (22:00)
[2024-01-17] MEDS: PREGABALIN 25 MG CAP PO SCH (22:19)
[2024-01-17] MEDS: CHOLECALCIFEROL 25 MCG (1000 UNITS) TAB PO SCH (22:20)
[2024-01-17] MEDS: SIMVASTATIN 20 MG TAB PO SCH (22:20)
[2024-01-17] MEDS: PANTOprazole 40 MG TAB PO SCH (22:20)
[2024-01-17] MEDS: OMEGA-3 (PURIFIED FISH OIL) 1 GM CAP PO SCH (22:20)
[2024-01-17] MEDS: CALCIUM CARBONATE 500 MG CHEWABLE TAB PO SCH (22:21)
[2024-01-17] MEDS: oxyCODONE HCL IR 5 MG TAB (IMMEDIATE RELEASE) PO PRN (22:56)
[2024-01-17] MEDS: KETOROLAC TROMETHAMINE 15 MG/ML VIAL IV ONE (22:56)
[2024-01-18] MEDS: MoRPHine SULFATE 4 MG/ML 1 ML CARP\\VIAL IV PRN (05:18)
[2024-01-18 07:31] LABS: Basophils # (auto) 0.02 K/uL (0.00-0.20); Basophils % (auto) 0.1 %; Hematocrit (blood only) 39.6 % (37.0-47.0); Hemoglobin 12.9 g/dl (12.0-16.0); Immature Granulocytes # (auto) 0.22 K/uL (0.01-0.20); Immature Granulocytes % (auto) 1.5 %; Lymphocytes % (auto) 7.5 %; Mean Corpuscular Hemoglobin 29.5 pg (25.0-34.0); Mean Corpuscular Hgb Conc 32.6 g/dL (32.0-36.0); Mean Corpuscular Volume 90.6 fL (80.0-100.0); Mean Platelet Volume 10.1 fL (9.4-12.4); Monocytes # (auto) 0.87 K/uL (0.11-0.59); Monocytes % (auto) 5.9 %; Neutrophils # (auto) 12.43 K/uL (1.40-6.50); Platelet Count 416 K/uL (130-400); RDW Coefficient of Variation 13.5 % (11.5-14.5); RDW Standard Deviation 45.1 fL (36.4-46.3); Red Blood Count 4.37 M/uL (4.20-5.40); White Blood Count 14.64 K/ul (4.8-10.8)
[2024-01-18 07:39] LABS: Albumin Globulin Ratio 1.8 (0.9-2); BUN Creatinine Ratio 30.5 (10-20); Bilirubin,Total 0.8 mg/dl (0.2-1.0); Calcium 9.2 mg/dl (8.6-10.3); Globulin 2.2 gm/dl (2.5-4.0); Potassium 4.3 mmol/L (3.5-5.1); Total Protein 6.2 gm/dl (6.0-8.3)
[2024-01-18] MEDS: CEROVITE ADV FORMULA TAB PO SCH (07:47)
[2024-01-18] MEDS: SERTRALINE HCL 100 MG TABLET PO SCH (08:26)
--- NOTE | 2024-01-18 09:05 | Orthopedic Consultation ---
Date of Service January 18, 2024 Assessment & Plan (1) Closed fracture dislocation of right ankle: NPO today. Plan for ORIF of the right ankle today with Dr. aFrooq. Procedure explained including risks, benefits to surgery. Consent obtained. Continue same splint for now, NWB RLE. History of Present Illness Reason for Consultation: . Requesting Physician: . Attending Physician: Argelia Welch MD . 88 year old patient admitted with a right ankle fracture/dislocation. She saw Dr. Farooq yesterday in clinic for hip injections, was getting in her car after and slipped, injuring her ankle. She initially went to [facility] here locally, had xrays and was just splinted. She called our office and came to the [facility] ER for definitive management. She underwent closed reduction and splinting here. Denies any other injuries. Has h/o foot/ankle surgery. Allergies Allergy/AdvReac Type Severity Reaction Status Date / Time Sulfa (Sulfonamide Allergy Severe FACIAL Verified 09/03/23 10:21 Antibiotics) SWELLING A TEEN Home Medications Medication Instructions Recorded Confirmed Type calcium carbonate (Calcium 600) 600 mg PO QPM 04/19/18 01/17/24 History cholecalciferol (vitamin D3) 50 4,000 unit PO QPM 04/19/18 01/17/24 History mcg (2,000 unit) tablet (Vitamin D3) omega 7-kwn-pgu-fish oil 1,000 mg 1 cap PO QPM 04/19/18 01/17/24 History (120 mg-180 mg) capsule (Fish Oil) vit C 250 mg-vit E 90 mg-zinc 40 1 tab PO BID 04/19/18 01/17/24 History mg-copper 1 ar-cugols-mmqzbf capsule (PreserVision AREDS-2) amoxicillin 500 mg tablet 2,000 mg PO UD PRN PRE DENTAL 01/10/22 01/17/24 History pantoprazole 40 mg tablet,delayed 40 mg PO BID #180 tabs 06/20/22 01/17/24 Rx release simvastatin 20 mg tablet 20 mg PO PM #90 tabs 06/20/22 01/17/24 Rx pregabalin 25 mg capsule 25 mg PO AMPM 02/02/23 01/17/24 History sertraline 100 mg tablet 100 mg PO QAM 02/02/23 01/17/24 History Past Med/Surg History Problem List Closed displaced trimalleolar fracture of right ankle (Acute) Closed fracture dislocation of right ankle (Acute) Parotid sialoadenitis Sicca syndrome Ischial bursitis of left side Tear of gluteus medius tendon Tear of gluteus minimus tendon Greater trochanteric pain syndrome Abdominal pain (Acute) Depression Neuropathy Hyperlipidemia S/P ERCP Melena Rib pain Arthritis of carpometacarpal (CMC) joint of both thumbs Right wrist sprain Left carpal tunnel syndrome Parotid mass Encounter for pre-operative examination Abdominal pain Hx of cholecystectomy S/P appendectomy H/O: hysterectomy Umbilical hernia History of total knee replacement B/L Encounter for pre-operative examination Vitamin D deficiency Trochanteric bursitis of right hip Solitary thyroid nodule Postmenopausal atrophic vaginitis Post herpetic neuralgia Nontoxic multinodular goiter Hypercholesterolemia Carpal tunnel syndrome of left wrist 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 Greater trochanteric bursitis Ankle pain, left Pes anserine bursitis History of reverse total replacement of shoulder joint (~08/2019) Rotator cuff tear, right Posterior tibial tendon dysfunction (PTTD) of left lower extremity Status post reverse arthroplasty of right shoulder (~08/2019) Pes anserine bursitis Hip bursitis History of bilateral knee replacement Cervical lymphadenopathy Mass of parotid gland Distal radius fracture, left Chronic rhinitis Loose bowel movement Low vitamin B12 level Abdominal pain Barretts esophagus De Quervain's tenosynovitis, right Strain of foot Abdominal pain, acute, epigastric Umbilical hernia Incisional hernia Arthritis Stomach ulcer Status post repair of ventral hernia Current use of proton pump inhibitor Barretts esophagus Epigastric pain Change in bowel habits Medical History History of colon polyps Abdominal pain ONGOING FOR AWHILE...REASON FOR UPCOMING PROCEDURE NO CHANGES IN BASELINE Trochanteric bursitis, left hip BOTH HIPS - INJECTION IN BOTH SEP 2021 Encounter for pre-operative examination Ankle pain, chronic chronic left ankle pain after ankle surgery/unable to walk or stand for long period of time/occasional cane 2021 [place] [facility] [place] Temporomandibular joint disorder Hx clicking, no locking Avendaño's esophagus Benign positional vertigo Occasional Osteoporosis Anxiety Macular degeneration q4-6 weeks eye injections Prediabetes Obesity Osteoarthritis GERD (gastroesophageal reflux disease) controlled Surgical History History of total left knee replacement History of total right knee replacement History of incisional hernia repair (10/25/21) Open Incisional Hernia Repair(Not Applicable) - Christoph Villar, DO Previous section x2 S/P hammer toe correction S/P trigger finger release History of total shoulder replacement left and right total reverse shoulder History of toe surgery RIGHT TOE AMPUTATION (2/2 OSTEOMYELITIS)= 12/12/17= MAC SEDATION AT [facility] Left third toe amputation (06/15/21): MAC at [facility] [place]. No issues noted per post-op anesthesia progress note. History of tooth extraction History of carpal tunnel release RIGHT History of foot surgery bilateral History of ankle surgery SEVERAL SX- MOST RECENT LEFT ANKLE D[place] [facility] [place] LAST 2 YRS X2, r ankle surgery History of repair of rotator cuff B/L History of cholecystectomy History of total abdominal hysterectomy and bilateral salpingo-oophorectomy History of esophagogastroduodenoscopy (EGD) History of colonoscopy History of back surgery lumbar discectomy Family History Mother Myocardial infarction Hypertension Father History of lung cancer Denies family history of Colon cancer Ovarian cancer Prostate cancer Hearing loss No family history of adverse response to anesthesia No family history of bleeding disorder Heart disease Allergies Breast cancer Stroke Asthma Social History Smoking Status: Never smoker Second Hand Exposure: No; Do You Dip or Chew Tobacco: No; Tobacco Cessation Education Requested by Patient: No Hx Alcohol Use: No Hx Substance Use: No Preferred Language: Chinese Communication Ability: Effective Visual Impairment: Limited Hearing Ability: Normal Hand Plate Stacker Required: No Beliefs That Will Affect Care: None marital status: Current Living Situation: Spouse current occupational status: retired How many Children do You have: 4 Other Information That Helps Us Care for You: No Feels Safe at Home: Yes Safety Concerns: Feels Safe At This Time Childhood Exposure to Second-Hand Smoke: Yes during the past year weight has: decreased > 10 lbs Dental Care, Regularly: Yes Seatbelt Use: always Sunscreen Use: Yes Assistive Devices: Cane, Denture - Upper, Glasses and Walker Review of Systems All systems reviewed & are unremarkable except as noted in HPI & below. Physical Exam .alert and oriented. NAD Right leg: splint intact. Able to move toes, brisk refill, sensation intact to touch Results & Data Results & Data Laboratory Results . Diagnostic Findings . xrays of the right ankle reviewed and show a bimalleolar fx/dislocation of the ankle, with improved alignment on the post reduction xray, still some subluxation PG Care Time/CCT Total # of Minutes Spent Total Time Spent with Patient: Total time spent is greater than 50% in coordination of care (as documented) at patient's floor/unit and/or counseling patient: Coding Level of Care Code 20689 IN/OBS CONSULT LVL 4,60M (57 - DECISION FOR SURGERY) Diagnoses Closed fracture dislocation of right ankle S82.891A Encounter type: initial encounter (1) Closed fracture dislocation of right ankle Encounter type: initial encounter Qualified Code(s): S82.891A - Other fracture of right lower leg, initial encounter for closed fracture
--- NOTE | 2024-01-18 10:35 | Electrocardiogram Report ---
Test Reason : Blood Pressure : */* mmHG Vent. Rate : 71 BPM Atrial Rate : 71 BPM P-R Int : 152 ms QRS Dur : 78 ms QT Int : 410 ms P-R-T Axes : 55 -26 43 degrees QTcB Int : 445 ms Normal sinus rhythm Low voltage QRS possible Inferior infarct , age undetermined Anterolateral infarct (cited on or before 05-Sep-2021) Abnormal ECG When compared with ECG of 20-Oct-2023 11:54, No significant change was found Confirmed by Edilson Nelson ([id number]) on 01/18/2024 10:35:01 AM Referred By: Kedar Farooq Confirmed By: Edilson Nelson
[2024-01-18 11:15] LABS: Appearance Urine Clear (Clear); Bacteria Urine Automated None Seen (None Seen); Bilirubin Urine Negative (Negative); Blood Urine Negative (Negative); Cast Urine Automated 0-2 /lpf (0-2); Color Urine Yellow; Epithelial Cell Urine Auto 0-2 /hpf (0-2); Glucose Urine UA Negative (Negative); Ketones Urine Negative (Negative); Leukocyte Esterase Urine 1+ (Negative); Nitrite Urine Negative (Negative); Protein Urine Negative (Negative); RBC Urine Automated 0-2 /hpf (0-2); Specific Gravity Urine 1.016 (1.000-1.030); Urobilinogen Urine Negative (Negative); WBC Urine Automated 0-5 /hpf (0-5); pH Urine 5.5 (4.5-7.5)
--- NOTE | 2024-01-18 13:20 | Hospitalist Progress Note ---
Date of Service January 18, 2024 Assessment & Plan (1) Closed fracture dislocation of right ankle: Plan Jasmin Ge is an 88y/o F with PMHx significant for HLD, hiatal hernia, osteoporosis, nonexudative macular degeneration, peripheral polyneuropathy, pseudophakia, VITA/depression, bilateral total knee replacements, GERD and Avendaño's esophagus who presented to the ED on 01/17/24 with complaints of right ankle pain and was found to have an acute fracture dislocation of the right ankle. Patient was at Dr. Farooq's office yesterday getting bilateral corticosteroid hip injections and went to go get in the car afterwards when her foot slipped and she fell backward. The patient then went to the [facility] in [place] for evaluation and x-rays were performed showing a right ankle fracture. Dr. Farooq was made aware of the fracture, and the patient was instructed to come to the [facility] ED for admission. Closed Fracture Dislocation of Right Ankle: CXR with cardiomegaly but no acute process on presentation. EKG was unremarkable . WBC elevated at 17k on presentation, likely secondary to corticosteroid injections as per above. Will obtain urine to rule-out UTI. Continue to monitor with daily labs. Right ankle XR revealed an acute fracture dislocation. Patient underwent closed ankle reduction and splinting in the ED. Repeat right ankle XR revealed significant improvement alignment of the right ankle fracture/dislocation post-reduction. Orthopedic surgery was consulted. Patient is scheduled to undergo right bimalleolar ORIF with Dr. Farooq this afternoon. Continue pain control and bowel regimen. PT/OT evals pending. GERD, Avendaño's Esophagus: Most recent EGD done 01/30/2023 --> normal esophagus, gastritis (which was biopsied and came back unremarkable) and normal examined duodenum. Continue pantoprazole. Other Chronic Medical Conditions: HLD, depression/VITA, peripheral polyneuropathy --> Can continue home medications for the specific conditions. DVT Prophylaxis: SCDs/TEDs - Applied only to the LEFT leg. Code Status: DNR/DNI - No Resuscitation PCP: Jessica Herndon DO Disposition: Admitted in Med/Surg - PT/OT evaluations pending. CM consulted for routine discharge planning. Patient seen in collaboration with Dr. Welch. Please see addendum. I spent a total of 40 minutes coordinating, documenting, and providing care for this patient excluding time spent in the performance of separately billed services. This included personally reviewing all current laboratories and imaging studies, medical reconciliation, outpatient chart review and discussion with specialists. This chart was completed in part utilizing Speech Voice Recognition Software. Grammatical errors, random word insertions, pronoun errors, and incomplete sentences are an occasional consequence of this system due to software limitations, ambient noise, and hardware issues. Any formal questions or concerns about the content, text, or information contained within the body of this dictation should be directly addressed to the provider for clarification. Admission and Anticipated Discharge Date Admission Date: January 17, 2024 Supervising Physician Co-Signing Physician Notes Patient was seen and examined at bedside as a follow-up of closed fracture dislocation of right ankle, patient is n.p.o., plan for orthopedic repair later in the day. Resume diet after the OT. Case discussed with Alma ALVAREZ, pain management, bowel regimen, follow orthopedic recommendation, follow-up orthopedics upon discharge. I have seen and examined the patient and have discussed the case with the provider above. I agree with the assessment and plan as stated. Time spent 20 minutes. Subjective Patient with some pain in her right ankle region this morning. She is set to have an ORIF of her right ankle today with Dr. Farooq. Review of Systems Review of Systems: At least ten systems reviewed and negative, except as noted in the subjective section. Physical Exam Physical Exam: General: WD/WN, vitals as above, NAD, laying down in bed, very pleasant, conversing appropriately. A+Ox3, euthymic affect. HEENT: Normocephalic, atraumatic. PERRL, conjunctivae normal, anicteric sclerae. External ear and nose normal, oropharynx normal. Respiratory: Normal respiratory effort, lungs clear to auscultation, no wheeze, rales, rhonchi. No accessory muscle use. Cardiovascular: Regular rate, rhythm, no murmur, normal peripheral pulses, no BLE edema. Vessels: No JVD. Abdomen/GI: Normal bowel sounds, soft, nontender, no hepatosplenomegaly. Extremities/Musculoskeletal: No cyanosis or clubbing, CASSANDRA wrap/splinting intact over RLE region. Neurologic: EOMI, no focal deficits, CN's II-XI not formally tested but appear grossly intact bilaterally. Skin: No rashes, normal color, warm/dry. Results & Data Results & Data Vital Signs (Past 12 Hours) Vital Signs Temp Pulse Resp BP Pulse Ox O2 Del Method 01/18/24 07:54 37.0 C 62 15 139/79 93 Room Air Laboratory Results Short CBC 01/17/24 01/18/24 Range/Units 19:08 06:50 WBC 17.02 H 14.64 H (4.8-10.8) K/ul Hgb 14.0 12.9 (12.0-16.0) g/dl Hct 43.6 39.6 (37.0-47.0) % Plt Count 431 H 416 H (130-400) K/uL BMP 01/17/24 01/18/24 19:08 06:50 Sodium 138 140 Potassium 4.4 4.3 Chloride 106 107 Carbon Dioxide 25 25 BUN 26 H 25 H Creatinine 0.97 0.82 Glucose 198 H 139 H Calcium 9.6 9.2 Liver Function 01/17/24 01/18/24 Range/Units 19:08 06:50 Total Bilirubin 0.7 0.8 (0.2-1.0) mg/dl AST 14 12 L (13-39) U/L ALT 14 12 (7-52) U/L Alkaline Phosphatase 79 70 (34-104) U/L Albumin 4.4 4.0 (3.4-5.0) gm/dl Urine 01/18/24 Range/Units 10:25 Urine Color Yellow Urine Appearance Clear (Clear) Urine pH 5.5 (4.5-7.5) Ur Specific [place] 1.016 (1.000-1.030) Urine Protein Negative (Negative) Urine Glucose (UA) Negative (Negative) (1) Closed fracture dislocation of right ankle Encounter type: initial encounter Qualified Code(s): S82.891A - Other fracture of right lower leg, initial encounter for closed fracture
--- NOTE | 2024-01-18 13:40 | History & Physical Bridge Note ---
Date of Service January 18, 2024 History & Physical Bridge Note I have examined the patient, reviewed the History & Physical and in the interval since the performance of the History & Physical I have noted the following changes of clinical significance: no changes noted
[2024-01-18] MEDS ORDERED: BUPIVACAINE/EPINEPHRINE 0.25% 1:200,000 30 ML VIAL ONE (14:04)
[2024-01-18] MEDS ORDERED: HYDROmorphone INJ 1 MG/ML SYRINGE IV PRN (14:16)
[2024-01-18] MEDS ORDERED: MoRPHine SULFATE 4 MG/ML 1 ML CARP\\VIAL IV PRN (14:17)
--- NOTE | 2024-01-18 14:19 | Anesthesiology Consultation ---
Date of Service January 18, 2024 Assessment & Plan Chart Review Chart Review: Acceptable Risk for Surgery and Patient NOT seen in Pre Admission Testing Consults Requested none ASA ASA3 Proposed Anesthesia Anesthesia Type: General Regional Regional Laterality: Right Site: Popliteal Risk / Benefits Reviewed With: PT / POA / Parent / Guardian, Accepts Plan and Informed Consent Obtained History Surgery Operation Date: 01/18/24 13:50 Proposed Procedures p Right Bimalleolar Open Reduction Internal Fixation - Kedar Farooq MD Height/Weight Height: 5 ft 5 in Weight: 87.997 kg Allergies Allergy/AdvReac Type Severity Reaction Status Date / Time Sulfa (Sulfonamide Allergy Severe FACIAL Verified 09/03/23 10:21 Antibiotics) SWELLING A TEEN Medications Home Medications Medication Instructions Recorded Confirmed Last Taken calcium carbonate (Calcium 600) 600 mg PO QPM 04/19/18 01/17/24 01/31/23 cholecalciferol (vitamin D3) 50 4,000 unit PO QPM 04/19/18 01/17/24 01/31/23 mcg (2,000 unit) tablet (Vitamin D3) omega 7-xsj-buf-fish oil 1,000 mg 1 cap PO QPM 04/19/18 01/17/24 01/31/23 (120 mg-180 mg) capsule (Fish Oil) vit C 250 mg-vit E 90 mg-zinc 40 1 tab PO BID 04/19/18 01/17/24 02/02/23 mg-copper 1 rd-vvgfet-vxylve capsule (PreserVision AREDS-2) amoxicillin 500 mg tablet 2,000 mg PO UD PRN PRE DENTAL 01/10/22 01/17/24 Unknown pantoprazole 40 mg tablet,delayed 40 mg PO BID #180 tabs 06/20/22 01/17/24 02/02/23 release simvastatin 20 mg tablet 20 mg PO PM #90 tabs 06/20/22 01/17/24 01/31/23 pregabalin 25 mg capsule 25 mg PO AMPM 02/02/23 01/17/24 02/02/23 sertraline 100 mg tablet 100 mg PO QAM 02/02/23 01/17/24 02/02/23 Active Medications Generic Name Dose Route Start Last Admin Trade Name Freq PRN Reason Stop Dose Admin Calcium Carbonate 500 mg 01/17/24 21:00 01/17/24 22:21 Calcium Carbonate 500 Mg Chewable Tab PO 02/16/24 20:59 500 mg QPM JACQUI Administration Fish Oil 1 cap 01/17/24 21:00 01/17/24 22:20 [place]-3 (Purified Fish Oil) 1 Gm Cap PO 02/16/24 20:59 1 cap QPM JACQUI Administration Multivitamins/Minerals 1 tab 01/18/24 09:00 01/18/24 07:47 Cerovite Adv Formula Tab PO 02/17/24 08:59 Not Given DAILY JACQUI Pantoprazole Sodium 40 mg 01/17/24 21:00 01/18/24 08:26 Pantoprazole 40 Mg Tab PO 02/16/24 20:59 40 mg BID JACQUI Administration Pregabalin 25 mg 01/17/24 21:00 01/18/24 08:25 Pregabalin 25 Mg Cap PO 02/16/24 20:59 25 mg AMHS JACQUI Administration Sertraline HCl 100 mg 01/18/24 09:00 01/18/24 08:26 Sertraline Hcl 100 Mg Tablet PO 02/17/24 08:59 100 mg QAM JACQUI Administration Simvastatin 20 mg 01/17/24 21:00 01/17/24 22:20 Simvastatin 20 Mg Tab PO 02/16/24 20:59 20 mg PM JACQUI Administration Vitamin D 100 mcg 01/17/24 21:00 01/17/24 22:20 Cholecalciferol 25 Mcg (1000 Units) Tab PO 02/16/24 20:59 100 mcg QPM JACQUI Administration NPO Date Last Intake of Fluids: 01/17/24 Time Last Intake of Fluids: 18:00 Date Last Intake of Solids: 01/17/24 Time Last Intake of Solids: 18:00 Past Medical History Medical History History of colon polyps Abdominal pain ONGOING FOR AWHILE...REASON FOR UPCOMING PROCEDURE NO CHANGES IN BASELINE Trochanteric bursitis, left hip BOTH HIPS - INJECTION IN BOTH SEP 2021 Encounter for pre-operative examination Ankle pain, chronic chronic left ankle pain after ankle surgery/unable to walk or stand for long period of time/occasional cane 2021 better since most recent sx at [facility] Temporomandibular joint disorder Hx clicking, no locking Avendaño's esophagus Benign positional vertigo Occasional Osteoporosis Anxiety Macular degeneration q4-6 weeks eye injections Prediabetes Obesity Osteoarthritis GERD (gastroesophageal reflux disease) controlled Exercise / Class Metabolic Activity III < 4 Walking/Shop/Light housework Past Family History Family History Mother Myocardial infarction Hypertension Father History of lung cancer Denies family history of Colon cancer Ovarian cancer Prostate cancer Hearing loss No family history of adverse response to anesthesia No family history of bleeding disorder Heart disease Allergies Breast cancer Stroke Asthma Past Surgical History Surgical History History of total left knee replacement History of total right knee replacement History of incisional hernia repair (10/25/21) Open Incisional Hernia Repair(Not Applicable) - Christoph Villar, Previous section x2 S/P hammer toe correction S/P trigger finger release History of total shoulder replacement left and right total reverse shoulder History of toe surgery RIGHT TOE AMPUTATION (/2 OSTEOMYELITIS)= 12/12/17= MAC SEDATION AT [facility] Left third toe amputation (06/15/21): MAC at [facility]. No issues noted per post-op anesthesia progress note. History of tooth extraction History of carpal tunnel release RIGHT History of foot surgery bilateral History of ankle surgery SEVERAL SX- MOST RECENT LEFT ANKLE DONE AT [facility] WITHIN LAST 2 YRS X2, r ankle surgery History of repair of rotator cuff B/L History of cholecystectomy History of total abdominal hysterectomy and bilateral salpingo-oophorectomy History of esophagogastroduodenoscopy (EGD) History of colonoscopy History of back surgery lumbar discectomy Past Anesthesia History No Hx of Anesthesia Complications and No Family Hx of Anesthesia Complications History of PONV No Hx of PONV and No Hx of Motion Sickness Social History Smoking Status: Never smoker Do You Dip or Chew Tobacco: No Hx Alcohol Use: No Hx Substance Use: No substance use type: does not use Physical Exam Vital Signs Last Vital Signs Temp 37 C 01/18/24 13:27 Pulse 66 01/18/24 13:27 Resp 18 01/18/24 13:27 BP 141/60 H 01/18/24 13:27 Pulse Ox 94 01/18/24 13:27 O2 Del Method Room Air 01/18/24 13:27 Constitutional + obese; no acute distress ENMT Mouth: + dentition abnormality, + dentures, + edentulous and + poor dentition Thyromental Distance: < 3.5 Finger Breadths Mallampati Class: II Neck normal visual inspection and trachea midline; neck extension not limited Respiratory normal respiratory effort Auscultation: lungs clear to auscultation bilaterally and + diminished lung sounds Cardiovascular Rate/Rhythm: regular rate and regular rhythm Heart Sounds: no murmur Vessels: no carotid bruit Musculoskeletal Spine: normal cervical ROM and no pain with cervical ROM Extremities: + extremities abnormal to inspection (right ankle) and full ROM of extremities Neurologic moves all extremities Motor/Sensory: + sensory deficit (diabetic PN feet) Psychiatric Orientation: alert and oriented x 3 Testing Laboratory Results 01/18/24 06:50 01/18/24 06:50 Urine Color Yellow 01/18/24 10:25 Urine Appearance Clear (Clear) 01/18/24 10:25 Urine pH 5.5 (4.5-7.5) 01/18/24 10:25 Ur Specific [place] 1.016 (1.000-1.030) 01/18/24 10:25 Urine Protein Negative (Negative) 01/18/24 10:25 Urine Glucose (UA) Negative (Negative) 01/18/24 10:25 Urine Ketones Negative (Negative) 01/18/24 10:25 Urine Nitrite Negative (Negative) 01/18/24 10:25 Ur Leukocyte Esterase 1+ (Negative) H 01/18/24 10:25 Urine WBC (Auto) 0-5 /hpf (0-5) 01/18/24 10:25 Urine RBC (Auto) 0-2 /hpf (0-2) 01/18/24 10:25 U Hyaline Cast (Auto) 0-2 /lpf (0-2) 01/18/24 10:25 U Epithel Cells (Auto) 0-2 /hpf (0-2) 01/18/24 10:25 Urine Bacteria (Auto) None Seen (None Seen) 01/18/24 10:25 Electrocardiogram Date: 01/17/24 Findings: + NSR @ (@ 71;low voltage QRS;poss infer and anter infarcts ,age ?) Chest X-Ray Date: 01/17/24 Findings: + NAD, + cardiomegaly and + atherosclerosis of thoracic aorta
[2024-01-18] MEDS ORDERED: fentaNYL citrate PF 100 MCG/2 ML VIAL ONE (15:04)
[2024-01-18] MEDS ORDERED: MIDAZOLAM HCL 1 MG/ML 2ML VIAL ONE (15:04)
[2024-01-18] MEDS ORDERED: PROPOFOL IV EMULSION 10 MG/ML 20 ML VIAL IV ONE (15:07)
[2024-01-18] MEDS ORDERED: LIDOCAINE 2% 2 ML VIAL/AMP(20MG/ML) INFIL ONE (15:07)
[2024-01-18] MEDS: ceFAZolin 2000MG 2,000 MG/15 ML SYR IV ONE ×2 (15:34→21:59)
[2024-01-18] MEDS ORDERED: ONDANSETRON INJ 2 MG/ML 2 ML VIAL ONE (15:48)
[2024-01-18] MEDS: BUPIVACAINE/EPINEPHRINE 0.5% MPF 1:200,000 30 ML VIAL ONE (16:43)
[2024-01-18] MEDS ORDERED: METOCLOPRAMIDE HCL INJ 5 MG/ML 2 ML VIAL IV PRN (17:21)
[2024-01-18] MEDS ORDERED: NALOXONE HCL 0.4 MG/1 ML VIAL/CARP IV PRN (17:21)
[2024-01-18] MEDS ORDERED: traMADol HCL 50 MG TABLET PO PRN ×2 (17:21→18:25)
[2024-01-18] MEDS ORDERED: bisacodyL 10 MG SUPP PR PRN (17:21)
[2024-01-18] MEDS ORDERED: ONDANSETRON INJ 2 MG/ML 2 ML VIAL IV PRN ×2 (17:21→18:25)
[2024-01-18] MEDS ORDERED: ALUMINUM/MAGNESIUM SUSP 30 ML UDC PO PRN (17:21)
[2024-01-18] MEDS ORDERED: HYDROmorphone INJ 0.5 MG/0.5 ML SYR IV PRN (17:21)
[2024-01-18] MEDS ORDERED: MAGNESIUM HYDROXIDE SUSP 30 ML UDC PO PRN (17:21)
--- NOTE | 2024-01-18 17:22 | Fluoroscopy Report ---
INTRAOPERATIVE RADIOGRAPHS CLINICAL HISTORY: Open reduction and internal fixation of the right ankle. Fluoro time: 14 seconds Ka,r: 0.26 mGy FINDINGS: 3 spot fluoroscopic views of the right ankle are compared to radiographs dated 01/17/2024. T here are 2 cortical lag screws transfixing a medial malleolar fracture. There has been buttress plate fixation along the lateral cortex of a distal fibular fracture. Numerous cortical lag screw transfix the buttress plate. Near-anatomic alignment is restored at the ankle joint. The orthopedic hardware appears intact. Chronic postsurgical change is again seen in the hindfoot. Overlying soft tissue diaz a is noted. IMPRESSION: Intraoperative images from open reduction and internal fixation of right ankle fractures as above. Electronically signed by: Micah Watkins M.D. 01/18/2024 5:21 PM
--- NOTE | 2024-01-18 17:25 | Operative Report ---
PG Post Operative Report Pre & Post Diagnosis Operation Date: 01/18/24 13:50 Pre-Op Diagnosis: 1. Closed displaced trimalleolar fracture of right ankle 2. Closed fracture dislocation of right ankle Post-Op Diagnosis: 1. Closed displaced trimalleolar fracture of right ankle 2. Closed fracture dislocation of right ankle I identified the patient and participated in the time-out.: Yes Procedure Operation Date: 01/18/24 13:50 Actual Procedures p Open Reduction Internal Fixation Right trimalleolar ankle fracture/dislocation (Right) - Kedar Farooq MD Surgeon Kedar Farooq MD Microelectronics Engineer Dajuan Gagnon PA-C Estimated Blood Loss 30 Findings Consistent with Post-Op Diagnosis Right trimalleolar ankle fracture dislocation with significant comminution Specimens None Anesthesia Type General Regional Complications none Disposition Accompanied Patient To Recovery: No Indications Patient is an 88-year-old female who stained a fall in the parking lot yesterday. She was crying get in her car when her foot slipped and she twisted her ankle. She had acute onset of pain and significant deformity. She initially went to [facility] where she was splinted and then referred to our institution. She has been admitted by the hospitalist service, medically optimized and now indicated for surgical fixation. Description of Procedure Medial sided operative implants consist of: 1. Synthes 4.5 partially-threaded cannulated screw/long threads x 1. 2. Synthes 4.0 partially-threaded cannulated screw/long threads x 2 Lateral side implants consist of: 1. Synthes right 4-hole shaft 2.7/3.5 distal fibular locking plate. 2. 3.5 fully threaded cortical screws x 3. 3. 7.5 locking screws x 3 4. 2.7 cortical screw x 1. The patient was taken the op room, identified, placed on the operative table in the supine position. All contact areas were appropriately padded. IV antibiotics fibra anesthesia team. A popliteal block of been Reta in the holding area. A general anesthetic was implemented. Right thigh tent was then placed. The right lower extremity splint was then removed. We scrubbed the foot and the leg with Hibiclens and then prepped with ChloraPrep and draped in the usual sterile fashion. The right leg was elevated exsanguinated with use of an Esmarch and turn was placed at 300 mmHg. A medial approach to the ankle was then performed to a curvilinear incision over the fracture site. Of note her ankle was quite unstable. Sharp dissection was got through subcutaneous tissue directly down to the bone. The fracture was easily visualized by it. I held it reduced with a reduction clamp and then placed several wires across the fracture. Wire position was verified. I initially placed a 4 oh cannulated screws over the 3 wires but the anterior screw had very poor purchase. I initially placed a washer but the washer kept the screw away from the bone and we had no purchase. Therefore I remove the washer from the anterior screw and placed a 4.5 screw to get better purchase. It was slightly better. The 2 posterior screws had better purchase. The fracture is anatomically aligned. There was some comminution medially. Attention drawn laterally. Direct lateral approach to the fibula was then performed to a longitudinal incision. Sharp dissection Through subcutaneous tissue down to the bone. The fibula was exposed. It was extremely comminuted. There is no way to place any type of interfragmentary screw. I have pulled the fibula out to length and pinned it to the talus. I then selected a distal fibular locking plate and secured to the lateral aspect the fibula with 3 cortical screws. I fixed it distally with a single metaphyseal screw. The position was verified. I then filled additional holes with 2.7 locking screws. X-ray was brought in. The fracture is anatomically aligned. Mortise is well-maintained. There is no instability. Attention drawn toward closing. The wounds were irrigated extensively. I injected locally with 30 cc of half percent Marcaine with epinephrine. The tourniquet was then let down for tourniquet time of 39 minutes. Hemostasis assured use electrocautery. The deep tissues over the plate as well as the medial screws were then closed with 2-0 Vicryl suture. The subcutaneous tissues of both wounds were closed with 2-0 Vicryl suture and the skin was closed with a 3-0 nylon suture in a simple fashion. Leg was then cleaned and dried and sterile dressing with Xeroform, 4 x 4's, ABD pad, sterile cast padding, and a well-padded posterior and stirrup splint were applied. The patient then brought out of general esthesia and transferred to the recovery room in stable condition. Patient tolerated procedure well and there were no complications. Dajuan Gagnon, physician assistant warehouse manager, was present for the entire procedure. His assistance was required for proper patient positioning, prepping and draping, surgical exposure, retraction, perform the technical details of the operation, placement of hardware, closure of the incision site and placement of the sterile bandage and postoperative splint. I attest to the content of the Intraoperative Record and any orders documented therein. Any exceptions are noted below.
[2024-01-18] MEDS ORDERED: HYDROmorphone HCL 2 MG TAB PO PRN (18:25)
[2024-01-18] MEDS: ceFAZolin 2,000 MG/15 ML IV PUSH IV ONE (18:27)
--- NOTE | 2024-01-18 18:29 | Anesthesiology Progress Note ---
Date of Service January 18, 2024 Anesthesia Post Procedure Vital Signs Vital Signs: Temp Pulse Pulse Resp BP BP Pulse Ox 01/18/24 17:50 36.7 C 72 14 154/73 H 92 01/18/24 17:40 69 18 154/67 H 95 01/18/24 17:30 75 12 164/60 H 97 01/18/24 17:21 36.2 C L 83 17 166/69 H 95 01/18/24 13:27 37 C 66 18 141/60 H 94 01/18/24 07:54 37.0 C 62 15 139/79 93 01/17/24 21:15 36.7 C 67 16 152/80 H 93 01/17/24 20:45 68 22 143/88 H 95 01/17/24 20:09 77 22 173/93 H 93 O2 Del Method O2 Flow Rate 01/18/24 17:50 Room Air 01/18/24 17:40 Oxymask 2 01/18/24 17:30 Oxymask 7 01/18/24 17:21 Oxymask 7 01/18/24 13:27 Room Air 01/18/24 07:54 Room Air 01/17/24 21:15 Room Air 01/17/24 20:45 Room Air 01/17/24 20:09 Room Air Transfer of Care Handoff Completed per policy Notes Mental Status: alert / awake / arousable and participated in evaluation Patient Amnestic to Procedure: Yes Nausea / Vomiting: adequately controlled Pain: adequately controlled Airway Patency, RR, SpO2: stable & adequate BP & HR: stable & adequate Hydration State: stable & adequate Anesthetic Complications: no major complications apparent
[2024-01-18] MEDS: SODIUM CHLORIDE 0.9% 1,000 ML IV SCH ×2 (18:35→18:58)
[2024-01-18] MEDS: ACETAMINOPHEN 325 MG TAB PO SCH (18:35)
[2024-01-18] MEDS: KETOROLAC TROMETHAMINE 15 MG/ML VIAL IV SCH (18:59)
[2024-01-18] MEDS: SENNA 8.6 MG TAB PO SCH (21:06)
[2024-01-18] MEDS: DOCUSATE SODIUM 100 MG CAP PO SCH ×2 (21:07)
[2024-01-18] MEDS: ACETAMINOPHEN 500 MG TAB PO SCH (21:07)
[2024-01-18] MEDS: ceFAZolin 2000MG 2,000 MG/15 ML SYR IV SCH (22:01)
[2024-01-19 00:44] LABS: Appearance Urine Cloudy (Clear); Bacteria Urine Automated 1+ (None Seen); Bilirubin Urine Negative (Negative); Blood Urine Negative (Negative); Color Urine Dark Yellow; Glucose Urine UA Negative (Negative); Ketones Urine Trace (Negative); Leukocyte Esterase Urine 1+ (Negative); Nitrite Urine Negative (Negative); Protein Urine Trace (Negative); RBC Urine Automated 0-2 /hpf (0-2); Specific Gravity Urine 1.036 (1.000-1.030); Urobilinogen Urine Negative (Negative); WBC Urine Automated 0-5 /hpf (0-5)
--- NOTE | 2024-01-19 07:10 | Orthopedic Progress Note ---
Date of Service January 19, 2024 Assessment & Plan (1) Closed displaced trimalleolar fracture of right ankle: Plan: 88-year-old female postop day 1 from ORIF of a right trimalar ankle fracture dislocation. 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 She is doing well this morning. Pains controlled. Plan: 1. DVT prophylaxis and would recommend thigh-high teds, SCDs, aspirin twice a day for 6 weeks. 2. PT/OT. She is nonweightbearing right leg for the next 2 weeks. Needs to keep the pressure off her heel to prevent heel sores. 3. Medicine management as per the medicine service 4. Disposition she is orthopedically okay for discharge anytime. Will do therapy this morning. I need to see her back 2 to 3 weeks out from surgery date. Admission and Anticipated Discharge Date Admission Date: January 17, 2024 Subjective 88-year-old female now postop day 1 from a ORIF of her right trimalleolar ankle fracture. She is doing pretty well. Reports no particular pain this morning. Hoping to get home for the football game. No chest pain or shortness of breath. Physical Exam Physical Exam: Physical nation is a pleasant elderly female. Lying bed looks comfortable. Examination of the right ankle reveals the splint to be clean dry and intact. She can dorsiflex and plantarflex her toes appropriately. She is neurologically intact. Results & Data Vital Signs (Past 12 Hours) Vital Signs Temp Pulse Resp BP Pulse Ox O2 Del Method 01/19/24 07:02 36.4 C 56 L 16 131/76 96 Room Air 01/19/24 04:09 36.5 C 55 L 16 138/77 95 Room Air 01/19/24 00:04 36.6 C 58 L 16 114/77 94 Room Air 01/18/24 21:24 36.7 C 65 16 161/77 H 94 Room Air 01/18/24 20:24 36.3 C L 62 16 129/73 96 Room Air 01/18/24 19:14 36.6 C 60 15 143/80 H 95 Room Air (1) Closed displaced trimalleolar fracture of right ankle Encounter type: initial encounter Qualified Code(s): S82.851A - Displaced trimalleolar fracture of right lower leg, initial encounter for closed fracture
[2024-01-19] MEDS: MULTIVITAMIN TAB PO SCH (07:42)
[2024-01-19] MEDS: ASCORBIC ACID 500 MG TAB PO SCH (08:38)
--- NOTE | 2024-01-19 15:04 | Hospitalist Progress Note ---
Date of Service January 19, 2024 Assessment & Plan (1) Closed fracture dislocation of right ankle: Plan This is an 88y/o F with PMHx significant for HLD, hiatal hernia, osteoporosis, nonexudative macular degeneration, peripheral polyneuropathy, pseudophakia, VITA/depression, bilateral total knee replacements, GERD and Avendaño's esophagus who presented to the ED on 01/17/24 with complaints of right ankle pain and was found to have an acute fracture dislocation of the right ankle. Patient was at Dr. Farooq's office yesterday getting bilateral corticosteroid hip injections and went to go get in the car afterwards when her foot slipped and she fell backward. The patient then went to the [facility] in [place] for evaluation and x-rays were performed showing a right ankle fracture. Dr. Farooq was made aware of the fracture, and the patient was instructed to come to the [facility] ED for admission. Closed Fracture Dislocation of Right Ankle: Received bilateral corticosteroid hip injections prior to admission and went to go get in the car afterwards when her foot slipped and she fell backward Right ankle XR revealed an acute fracture dislocation POD #1 s/p R ORIF by Dr. Farooq Ortho recommendations: 1. DVT prophylaxis and would recommend thigh-high teds, SCDs, aspirin twice a day for 6 weeks. 2. PT/OT. She is nonweightbearing right leg for the next 2 weeks. Needs to keep the pressure off her heel to prevent heel sores. 3. Medicine management as per the medicine service 4. Disposition she is orthopedically okay for discharge anytime. Will do therapy this morning. I need to see her back 2 to 3 weeks out from surgery date. PT/OT evaluated today - difficulty with transfers given NWB status. Recommending acute rehab but will see again tomorrow, GERD, Avendaño's Esophagus: Most recent EGD done 01/30/2023 --> normal esophagus, gastritis (which was biopsied and came back unremarkable) and normal examined duodenum. Continue pantoprazole Other Chronic Medical Conditions: HLD, depression/VITA, peripheral polyneuropathy --> Can continue home medications for the specific conditions DVT Prophylaxis: SCDs/TEDs - Applied only to the LEFT leg Code Status: DNR/DNI PCP: Jessica Herndon, DO Disposition: Admitted in Med/Surg. CM consulted for routine discharge planning. Patient seen in collaboration with Dr. Welch. Please see addendum. I spent a total of 45 minutes coordinating, documenting, and providing care for this patient excluding time spent in the performance of separately billed services. This included personally reviewing all current laboratories and imaging studies, medical reconciliation, outpatient chart review and discussion with specialists. Admission and Anticipated Discharge Date Admission Date: January 17, 2024 Supervising Physician Co-Signing Physician Notes Patient was seen and examined at bedside as a follow-up of closed fracture dislocation of right ankle, patient is s/p ORIF rt ankle 01/17. Case discussed with Tayler ALVAREZ, pain management, bowel regimen, follow orthopedic recommendation, follow-up orthopedics upon discharge. PT/OT recs is rehab, pt thinking about going home. I have seen and examined the patient and have discussed the case with the provider above. I agree with the assessment and plan as stated. Time spent 15 minutes. Subjective Seen and examined in 355-2. Sitting up in bed, at bedside. Patient postop day 1 s/p R ankle ORIF. Minimal pain, feeling well. Anxious for discharge. Denies any fever, chills, chest pain, shortness of breath, nausea, vomiting, abdominal pain, dysuria. Passing gas postop, no bowel movement yet. Review of Systems Review of Systems: At least ten systems reviewed and negative, except as noted in the subjective section. Physical Exam Physical Exam: General Appearance: WD/WN, vitals as above, NAD, laying in bed, pleasant, conversing easily Head: normocephalic, atraumatic Eyes: normal inspection, PERRL, conjunctivae normal, anicteric sclerae ENT: external ear and nose normal, oropharynx normal Neck: normal visual inspection, trachea midline, no thyromegaly Respiratory: normal respiratory effort, lungs clear to auscultation. No accessory muscle use Cardiovascular: regular rate, rhythm, normal peripheral pulses, no BLE edema. Vessels: no JVD Chest: normal inspection of chest Abdomen/GI: normal bowel sounds, soft, nontender Extremities/Musculoskeletal: + R ankle dressing c/d/i. Distally NVI. No cyanosis or clubbing, extremities motor strength 5/5 Neurologic: PERRL, CN's II-XI intact bilaterally and moves all extremities Psychiatric: A+Ox3, euthymic affect Skin: no rashes, normal color, warm/dry Results & Data Results & Data Vital Signs (Past 12 Hours) Vital Signs Temp Pulse Resp BP Pulse Ox O2 Del Method 01/19/24 11:45 37.2 C 61 18 144/76 H 93 Room Air 01/19/24 07:02 36.4 C 56 L 16 131/76 96 Room Air 01/19/24 04:09 36.5 C 55 L 16 138/77 95 Room Air Laboratory Results Urine 01/19/24 Range/Units 00:19 Urine Color Dark Yellow Urine Appearance Cloudy A (Clear) Urine pH 5.0 (4.5-7.5) Ur Specific [place] 1.036 H (1.000-1.030) Urine Protein Trace H (Negative) Urine Glucose (UA) Negative (Negative) Diagnostic Findings Ankle X-Ray 01/17/24 15:59 XR ankle RT min 3V routine HISTORY: 88 years-old Female R ankle injury acute pain of the right ankle COMPARISON: None TECHNIQUE: 3 views of the right ankle FINDINGS: Arterial calcifications. A metallic staple is again noted projected over the calcaneus. There is an acute trimalleolar ankle fracture with associated dislocation of the tibiotalar joint which is also angulated. Moderate soft tissue swelling. Demineralized appearance of the bones with moderate osteoarthritis. IMPRESSION: Acute fracture dislocation of the ankle. ACT 112: Negative or not required by law. The above report was generated using voice recognition software. It may contain grammatical, syntax or spelling errors. Electronically signed by: Zhang Guzman M.D. 01/17/2024 4:45 PM Chest X-Ray 01/17/24 16:06 XR chest 1V portable HISTORY: 88 years-old Female Pre-op preoperative exam. No acute chest complaints COMPARISON: 06/19/2022 TECHNIQUE: AP view of the chest FINDINGS: Cardiac silhouette is enlarged. Atherosclerosis of the aorta. Lungs are clear. Mild left basilar atelectasis/scarring. No pneumothorax or pleural effusion. Bilateral shoulder arthroplasties. Azygos lobe and fissure. IMPRESSION: Cardiomegaly without acute process. ACT 112: Negative or not required by law. The above report was generated using voice recognition software. It may contain grammatical, syntax or spelling errors. Electronically signed by: Zhang Guzman M.D. 01/17/2024 4:50 PM Ankle X-Ray 01/17/24 16:56 XR ankle RT 2V CLINICAL HISTORY: Postreduction COMPARISON: Right ankle radiographs performed earlier today. FINDINGS: Metallic staple projecting over the calcaneus is again noted. Overlying cast is noted. Alignment of the right ankle fracture/dislocation has significantly improved post reduction. Fractures remain mildly displaced. Tibiotalar alignment has significantly improved. IMPRESSION: Significant improvement in alignment of the right ankle fracture/dislocation post reduction. ACT 112: Negative or not required by law. Electronically signed by: Elliott Baker M.D. 01/17/2024 5:19 PM Ankle X-Ray 01/18/24 00:00 INTRAOPERATIVE RADIOGRAPHS CLINICAL HISTORY: Open reduction and internal fixation of the right ankle. Fluoro time: 14 seconds Ka,r: 0.26 mGy FINDINGS: 3 spot fluoroscopic views of the right ankle are compared to ra diographs dated 01/17/2024. There are 2 cortical lag screws transfixing a medial malleolar fracture. There has been buttress plate fixation along the lateral cortex of a distal fibular fracture. Numerous cortical lag screw transfix the buttress plate. Near-anatomic alignment is restored at the ankle joint. The orthopedic hardware appears intact. Chronic postsurgical change is again seen in the hindfoot. Overlying soft tissue edema is noted. IMPRESSION: Intraoperative images from open reduction and internal fixation of right ankle fractures as above. Electronically signed by: Micah Watkins M.D. 01/18/2024 5:21 PM (1) Closed fracture dislocation of right ankle Encounter type: initial encounter Qualified Code(s): S82.891A - Other fracture of right lower leg, initial encounter for closed fracture
[2024-01-19 15:53] VITALS: RESP 16
[2024-01-19 20:24] VITALS: O2SAT 95
[2024-01-19] MEDS: oxyCODONE HCL IR 5 MG TAB (IMMEDIATE RELEASE) PO PRN (20:34)
[2024-01-20 07:55] VITALS: BP 121/76; PULSE 53; TEMP 97.7
--- NOTE | 2024-01-20 07:59 | Orthopedic Progress Note ---
Date of Service January 20, 2024 Assessment & Plan (1) Closed displaced trimalleolar fracture of right ankle: Plan: 88-year-old female now well postop day 2 from ORIF of femoral ankle fracture dislocation. She seems to be doing well. Pains controlled. She is have a little difficulty maintaining complete nonweightbearing status which which is understandable. Plan: From the orthopedic standpoint I am okay with discharging her to home. She is got a lot of help at home. She will be nonweightbearing is much as possible. I understand she is not can be completely perfectly nonweightbearing. She got a wheelchair at home. I need to see her back 2 to 3 weeks out from surgery date. I do not Nestl think she needs a rehab stay. I am fine with her going home under her family's care Admission and Anticipated Discharge Date Admission Date: January 17, 2024 Subjective 88-year-old female now postop day 2 from ORIF of a trimalleolar ankle fracture. Orthopedically she is doing well. No particular pain. Day she was hoping to go home yesterday but apparently they have suggested rehab. She is having difficulty being completely nonweightbearing. No other complaints Physical Exam Physical Exam: Physical examination is a pleasant elderly female with lying bed looks comfortable. Examination of the right leg reveals the splint to be clean dry and intact. She can flex and extend her toes appropriately. She is neurologically intact. Results & Data Vital Signs (Past 12 Hours) Vital Signs Temp Pulse Resp BP Pulse Ox O2 Del Method 01/20/24 07:01 36.5 C 53 L 16 121/76 95 Room Air 01/19/24 20:24 36.7 C 60 16 160/82 H 95 Room Air (1) Closed displaced trimalleolar fracture of right ankle Encounter type: initial encounter Qualified Code(s): S82.851A - Displaced trimalleolar fracture of right lower leg, initial encounter for closed fracture
--- NOTE | 2024-01-20 12:31 | Discharge Summary ---
Discharge Summary Date of Service January 20, 2024 Principal Dx & Hospital Course #1 = Principal Diagnosis (1) Closed fracture dislocation of right ankle: Plan This is an 88y/o F with PMHx significant for HLD, hiatal hernia, osteoporosis, nonexudative macular degeneration, peripheral polyneuropathy, pseudophakia, VITA/depression, bilateral total knee replacements, GERD and Avendaño's esophagus who presented to the ED on 01/17/24 with complaints of right ankle pain and was found to have an acute fracture dislocation of the right ankle. Patient was at Dr. Farooq's office yesterday getting bilateral corticosteroid hip injections a nd went to go get in the car afterwards when her foot slipped and she fell backward. Underwent R ankle ORIF by Dr. Farooq on 01/18/24. Improved since then, pain managed with PRN tylenol and occasional oxycodone at night. Evaluated by PT/OT initially before nerve block wore off and required significant help but re-evaluated today and did significantly better with transfers. Recommended for discharge home with home health. Referral for HH placed by case management. Patient to remain NWB on RLE for 2 weeks with ortho surgery follow up in [address] Farooq. Aspirin 81mg BID x 6 weeks for DVT ppx, PRN tylenol for pain control with oxycodone for severe breakthrough pain. Has good community support along with to help with transition home. PCP and ortho follow up as above. Hemodynamically stable at time of discharge. Notes For Next Care Provider Medication Changes From Visit Asa 81mg BID x 6 weeks per ortho for DVT ppx Tylenol PRN, Oxycodone PRN for severe breakthrough pain Admission HPI Per Admitting Provider The patient is an 88-year-old female with a past medical history of HLD, chronic left hip pain, bilateral total knee replacements, GERD, Avendaño's esophagus, depression who presents to the ED on 01/17/2024 with complaints of right ankle pain. Patient was at Dr. Farooq's office today getting a hip injection and she reports she went to go get in the car her foot slipped and she fell backward. She does report hitting her head. She was seen at the urgent care prior to arrival to our ED. Reported getting an x-ray of her right ankle that showed a fracture and a head CT that was negative. On exam, the patient does still report 7/10 pain. A splint is in place. Positive pedal pulses. No numbness and tingling of right lower extremity on exam. She is able to wiggle her toes. She denies any fever/chills/chest pain/nausea/vomiting/diarrhea/abdominal pain Her EKG showed normal sinus rhythm with no acute changes Chest x-ray unremarkable, cardiomegaly noted Ankle x-ray showed significant improvement in alignment of the right ankle fracture postreduction The patient will be admitted for further management of right ankle fracture Admission Exam Per Admitting Provider VS noted and reviewed oriented x3 , not in distress, speaks in sentences with no effort nor accessory muscle use normal rate, regular rhythm, no murmurs clear breath sounds bilaterally non distended, soft, nontender R foot: cast in place no bipedal edema, erythema, warmth no neuro deficits Discharge Exam General Appearance: WD/WN, vitals as above, NAD, laying in bed, pleasant, conversing easily Head: normocephalic, atraumatic Eyes: normal inspection, PERRL, conjunctivae normal, anicteric sclerae ENT: external ear and nose normal, oropharynx normal Neck: normal visual inspection, trachea midline, no thyromegaly Respiratory: normal respiratory effort, lungs clear to auscultation. No accessory muscle use Cardiovascular: regular rate, rhythm, normal peripheral pulses, no BLE edema. Vessels: no JVD Chest: normal inspection of chest Abdomen/GI: normal bowel sounds, soft, nontender Extremities/Musculoskeletal: + R ankle dressing c/d/i. Distally NVI. No cyanosis or clubbing, extremities motor strength 5/5 Neurologic: PERRL, CN's II-XI intact bilaterally and moves all extremities Psychiatric: A+Ox3, euthymic affect Skin: no rashes, normal color, warm/dry Updated Medication List Medication Instructions Recorded Confirmed Type calcium carbonate (Calcium 600) 600 mg PO QPM 04/19/18 01/17/24 History cholecalciferol (vitamin D3) 50 4,000 unit PO QPM 04/19/18 01/17/24 History mcg (2,000 unit) tablet (Vitamin D3) omega 6-pno-pox-fish oil 1,000 mg 1 cap PO QPM 04/19/18 01/17/24 History (120 mg-180 mg) capsule (Fish Oil) vit C 250 mg-vit E 90 mg-zinc 40 1 tab PO BID 04/19/18 01/17/24 History mg-copper 1 [id number] capsule (PreserVision AREDS-2) amoxicillin 500 mg tablet 2,000 mg PO UD PRN PRE DENTAL 01/10/22 01/17/24 History pantoprazole 40 mg tablet,delayed 40 mg PO BID #180 tabs 06/20/22 01/17/24 Rx release simvastatin 20 mg tablet 20 mg PO PM #90 tabs 06/20/22 01/17/24 Rx pregabalin 25 mg capsule 25 mg PO AMPM 02/02/23 01/17/24 History sertraline 100 mg tablet 100 mg PO QAM 02/02/23 01/17/24 History aspirin 81 mg capsule 81 mg PO BID #42 caps 01/20/24 Rx oxycodone 5 mg tablet 5 mg PO Q12 PRN severe pain (scale 01/20/24 Rx score 7-10) #5 tabs Hospital Stay Data Consultations 01/17/24 16:44 Consult Orthopedic Surgery Routine 01/17/24 17:07 Consult Orthopedic Surgery Stat ED Decision to Admit Stat Procedures Performed Operation Date: 01/18/24 13:50 Actual Procedures p Open Reduction Internal Fixation Right Ankle(Right) - Kedar Farooq MD Diagnostic Imagining Performed 01/18/24 FL ankle RT 2V Routine 01/18/24 14:19 US - OR guided needle placemen Stat Pending Results Patient Have Any Pending Studies at Discharge: No Discharge Instructions Given to Patient (Per Discharging Provider) MEDICATION CHANGES: Take aspirin 81mg twice a day x 6 weeks for blood clot prevention, per Dr. Farooq Continue Tylenol 1,000mg up to three times a day as needed for pain (do not exceed 3 gm in 24 hours) Oxycodone as needed for severe pain SUMMARY OF TEST RESULTS: You were admitted to hospital secondary to fall. Right ankle XR revealed an acute fracture dislocation. Underwent surgical repair by Dr. Farooq on 01/17 PENDING TEST RESULTS: None RECOMMENDATIONS FOR FOLLOW-UP: Follow up with PCP as scheduled. Follow up with Dr. Farooq (orthopedic surgery) in 2-3 weeks. Non-weight bearing on Right leg for 2 weeks until seen by Dr. Farooq in follow up. Continue medication regimen as scheduled aside from changes noted above. OTHER INSTRUCTIONS: Seek medical attention if you have: * temperature above 101 * chest pain or trouble breathing * abdominal pain, nausea, vomiting * diarrhea, dark stools or bloody stools * any unanswered questions or concerns Call 911 if symptoms are severe. Please take good care of yourself. Call if you have any questions or problems. You can reach a [facility] hospitalist on duty at [facility] 24 hours a day by calling [phone]. Total Time Total Time Spent Total Time Spent (In Minutes): 40 Supervising Physician Co-Signing Physician Notes Patient was seen and examined at bedside as a follow-up of closed fracture dislocation of right ankle, patient is s/p ORIF rt ankle 01/17. Case discussed with Tayler ALVAREZ, pain management, bowel regimen, follow orthopedic recommendation, follow-up orthopedics upon discharge. I have seen and examined the patient and have discussed the case with the provider above. I agree with the assessment and plan as stated. Time spent 15 minutes.
== END 2024-01-20 13:22 | disposition home health service (06) | DRG 494 ==
LOC: ED 15:47 → EDINP 16:44 → SUATTDRO 16:44 → 3W 20:06